=== PATIENT | male | born 1960 | race Caucasian/White ===

== ENCOUNTER 2022-07-30 18:43 | Outpatient (REF) | payer OTHER, SELFPAY ==
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
== END 2022-07-30 18:44 | disposition home or self-care (01) ==
LOC: HO.MRI 18:43
PROVIDERS: Visit Provider Psychiatry & Neurology Neurology
DX: I67.9 Cerebrovascular disease, unspecified (principal); R90.82 White matter disease, unspecified
CPT/HCPCS: 70551

== ENCOUNTER 2025-07-03 15:16 | Inpatient (IN) | payer MEDICARE, SELFPAY ==
--- OUTSIDE RECORDS SUMMARY | 2025-06-07 04:30 | XMS_ITS ---
Author Organization [facility] Address [address] [place] [address] Care Team Providers Care String Studies Director Name Role Phone Quincy Ma Primary Care Provider UnavailMayuri Christianson [phone] Encounters Encounter Location Date Provider Diagnosis [facility] [address] [place] [address] 06/07/2025 Mayuri Rubin Plan Of Treatment No Information Progress Notes * Albaro ANTOINE ADOB:[birth year] (64 yo M)Acc No.[id number]:06/07/2025 Progress Notes Patient: Albaro SINGH Provider: Lauren Rubin DPM :1960 A ge:64 Y S ex:Male Date:06/07/2025 Address:[address] [place], [place] [id number] Pcp:Quincy Ma Subjective: * Chief Complaints: * * Medical History: Objective: * Vitals: Assessment: Plan: * Treatment: * Images: * The named appointment provid er may or may not be the originator of this progress note, and it is not deemed complete until electronically signed by the appointment provider. Sign off status: Pending * Provider: Lauren Rubin DPM Date: Generated for Maria Luisa meneses/Godfrey/Deboraitting on: 09/02/2024 03:44 PM EDT
--- NOTE | ~2025-07-03 | XR_ITS ---
CLINICAL HISTORY: assess hardware 4 views cervical spine Comparison: None provided Findings: Normal vertebral body alignment. Status post anterior metallic, posterior metallic and interbody fusion extending from C3 through C5. Appropriate alignment. No evidence of hardware failure. Mild multilevel degenerative disc disease and facet osteoarthritis. Prevertebral soft tissues within normal limits. There is dental hardware. There are carotid artery calcifications. IMPRESSION: Status post surgical fusion extending from C3 through C5 with an unremarkable postoperative appearance. This document has been electronically signed by: Cassie Kc MD on 07/03/2025 18:52:59
--- NOTE | ~2025-07-03 | CT_ITS ---
CLINICAL HISTORY: headache CT head without contrast Comparison: MR/SR - MR BRAIN WITHOUT IV CONTRAST - 07/30/22 19:04 EST Findings: Involutional change and nonspecific white matter hypodensity. No intracranial mass, midline shift, hydrocephalus, or acute hemorrhage. Orbits, paranasal sinuses, and mastoid air cells are unremarkable. No skull fracture. Impression: 1. No acute findings. This document has been electronically signed by: Cassie Kc MD on 07/03/2025 18:26:30
[2025-07-03 15:28] VITALS: BP 166/79; PULSE 74; RESP 18; TEMP 36.7; O2SAT 99; BMI 21.1
--- OUTSIDE RECORDS SUMMARY | 2025-07-03 15:45 | XMS_ITS | Data Portability ---
Author Organization [facility], Main Office Address [address] [place] [id number] Assessment No assessment recorded. Plan of Treatment Reminders Order Date Submit Date Provider Last Modified By Organization Details Last Modified Time Details Appointments None recorde d. Lab CBC w/ auto diff 2016 017 JOJO [facility], [address], [address], [place], [address], 7 19:52:09 CMP, serum or plasma 2016 017 JO[facility], [address], [address], [place], [address], 7 20:53:47 BMP, serum or plasma 2014 015 JOJO Not available 5 18:01:13 Referral dermato logist referra l - pt saw Dr Rico in 2013-ex coriati ons. I believe this is recurre nt due to bathing /dry weather and perhaps his hyponat remia 2016 017 ciro Rico MD, [address] [facility] [place], [address], 7 10:25:06 gastroe nterolo gist referra l - pt due for colonos copy 2014 015 ciro Rios MD, [address] [place] [address] , [address], [place]al, [address], 6 13:02:12 dermato logist referra l 2013 014 [email or web address] Mi Rico MD, [address] [place] [address] [place], [address], 4 08:37:44 Procedures None recorde d. Surgeries None recorde d. Imaging electro cardiog bo 2014 015 cem In-Office Order, Internal Use Only DO Not Attach Compendium DO Not Attach Compendium, Do Not Delete/merge, [id number] 5 08:25:10 Medication Orders clobeta margaret 0.05 % topical ointmen t 2016 017 INTERFACE [facility]197, [address] [place] [address], [id number], 7 16:46:01 cetiriz ine 10 mg tablet 2016 017 [facility], [address] [place] [address], [id number], 7 16:46:03 prednis one 20 mg tablet 2016 017 INTERFACE [facility], [address] [place] [address], [id number], 7 16:46:03 irbesar matson 300 mg tablet 2014 015 mdalesschichoro [id number], [address] [facility], [place], [address], 5 14:08:11 permeth rin 5 % topical cream 2013 014 bmunday [facility], [address] [facility] [place], [address], 5 15:38:49 hydroxy zine HCl 25 mg tablet 2013 014 abolcun [facility], [address] [facility] [place], [address], 5 16:06:27 irbesar matson 300 mg tablet 2013 014 mdalessandro [facility]2566, [address] [place], [address], 4 08:02:09 permeth rin 5 % topical cream 2013 014 bmunday [id number], [address] [place], [address], 5 15:38:49 hydroxy zine HCl 25 mg tablet 2013 014 abolcun [facility][id number], [address] [place], [address], 5 16:06:26 Patient Targets Encounter Date Encounter Id Patient Goals Patient Target Last Modified By Organization Details Last Modified Time 04/29/2015 [id number] middle or intermediate school principal goal of Blood Pressure 140 / 90 Not available Not available Not available middle or intermediate school principal goal of Exercise level Not available Not available Not available middle or intermediate school principal goal of Tobacco Smoking Status Not available Not available Not available 04/29/2015 [id number] Pt advised and agrees to eat a low salt low fat diet; to do moderate exercise (such as walking) 150 minutes per week; to limit alcohol intake (goal of 2 drinks per day or less for men or 1 for woman). and to monitor dietary sodium. Will monitor home blood pressures and bring readings to appointments . mdalessandro Not available 04/29/2015 14:08:11 Patient Instructions Encounter Date Encounter Id Patient Instructions Last Modified By Organization Details Last Modified Time 04/21/2014 [id number] scabies: care instructions bmunday Not available 04/23/2014 12:50:27 high blood pressure: care instructions abolcun Not available 04/23/2014 16:06:15 learning about high blood pressure abolcun Not available 04/23/2014 16:06:15 05/25/2014 [id number] scabies: care instructions mdalessandro Not available 05/26/2014 08:02:09 learning about high blood pressure mdalessandro Not available 05/26/2014 08:02:09 high blood pressure: care instructions mdalessandro Not available 05/26/2014 08:02:09 [facility] carrie Neil have reviewed the note and agree with the assessment and plan of care. mdalessandro Not available 05/26/2014 08:02:09 10/20/2014 [id number] high blood pressure: care instructions awychowski Not available 10/21/2014 08:25:10 learning about high blood pressure awychowski Not available 10/21/2014 08:25:10 Medications were reviewed at this visit and reconciled. Changes in the active medications are reflected in the current medication list and discussed with patient (or caregiver) with instructions for follow up as needed. Printed medication list provided to the patient as part of the visit summary. I have reviewed the note and agree with the assessment and plan of care. awychowski Not available 10/21/2014 08:25:10 04/29/2015 [id number] Medications were reviewed at this visit and reconciled. Changes in the active medications are reflected in the current medication list and discussed with patient (or caregiver) with instructions for follow up as needed. Printed medication list provided to the patient as part of the visit summary. mdalessandro Not available 04/29/2015 14:01:21 09/14/2016 [id number] hyponatremia: care instructions [email or web address] Not available 09/14/2016 16:53:33 Medications (OTC, herbal therapies, supplements) reviewed and reconciled with patient and or caregiver, including potential side effects, drug interactions, instructions, and the consequences of not taking medication. Reviewed potential barriers to medication adherence, such as side effects from medication or cost of medication. mdalessandro Not available 09/14/2016 16:45:17 Reason for Referral Referring Physician: Pepito harper, Internal Medicine, Encounter Date: 05/25/2014 pt due for colonoscopy Referring Physician: Bridget Dupont, Internal Medicine, Encounter Date: 04/29/2015 Liquid Compounder Referral for A cute dermatitis pt saw Dr Rico in 2013-excoriations. I believe this is recurrent due to bathing/dry weather and perhaps his hyponatremia Referring Physician: Bridget Dupont, Internal Medicine, Encounter Date: 09/14/2016 Results Created Date Observation Date Name Description Value Unit Range Abnormal Flag Note LastModifiedBy Organization Detail LastModifiedTime 10/20/19 15 10/20/2014 lita nguyengr am Rate & Rhythm nsr Not Available In-Off ice Order Internal Use Only DO Not Attach Compendium DO Not Attach Compendium, Do Not Delete/merge, [id number] 10/20/2014 16:14:26 04/29/2004/29/2015 BMP, serum or plasm a glucose 86 mg/dL (70-99 ) Not Available [facility] (Centralized Electronic Ordering - All Locations) Patient Can Go To The Location Of Their Choice, 04/29/2015 18:01:13 04/29/2004/29/2015 BMP, serum or plasm a BUN 11 mg/dL (6-20) Not Available [facility] (Centralized Electronic Ordering - All Locations) Patient Can Go To The Location Of Their Choice, 04/29/2015 18:01:13 04/29/2004/29/2015 BMP, serum or plasm a creatinine 0.7 mg/dL (0.7-1 .2) Not Available [facility] (Centralized Electronic Ordering - All Locations) Patient Can Go To The Location Of Their Choice, 04/29/2015 18:01:13 04/29/2004/29/2015 BMP, serum or plasm a sodium 130 mmol/ L (133-1 45) low Not Available [facility] (Centralized Electronic Ordering - All Locations) Patient Can Go To The Location Of Their Choice, 04/29/2015 18:01:13 04/29/2004/29/2015 BMP, serum or plasm a potassium 5.0 mmol/ L (3.6-5 .2) Not Available [facility] (Centralized Electronic Ordering - All Locations) Patient Can Go To The Location Of Their Choice, 04/29/2015 18:01:13 04/29/2004/29/2015 BMP, serum or plasm a chloride 91 mmol/ L (98-10 7) low Not Available [facility] (Centralized Electronic Ordering - All Locations) Patient Can Go To The Location Of Their Choice, 04/29/2015 18:01:13 04/29/2004/29/2015 BMP, serum or plasm a bicarbonate 26 mmol/ L (22-29 ) Not Available [facility] (Centralized Electronic Ordering - All Locations) Patient Can Go To The Location Of Their Choice, 04/29/2015 18:01:04/29/2004/29/2015 BMP, serum or plasm a anion gap 13 (4-17) Not Available [facility] (Centralized Electronic Ordering - All Locations) Patient Can Go To The Location Of Their Choice, 04/29/2015 18:01:04/29/2004/29/2015 BMP, serum or plasm a calcium 9.3 mg/dL (8.6-1 0.5) Not Available [facility] (Centralized Electronic Ordering - All Locations) Patient Can Go To The Location Of Their Choice, 04/29/2015 18:01:04/29/2004/29/2015 BMP, serum or plasm a est GFR non >60 mL/mi n/1.7 3_M2 THE MDRD STUDY 'S ESTIM ATED GFR EQUAT ION HAS NOT BEEN VALID ATED IN CHILD TAMMY (<18 YRS), PREGN ANT WOMEN , THE ELDER LY (AGE >70 YRS), RACIA L OR ETHNI C SUBGR OUPS OTHER THAN CAU[place] SIANS AND AFRIC AN AMERI CANS. Not Available [facility] (Centralized Electronic Ordering - All Locations) Patient Can Go To The Location Of Their Choice, 04/29/2015 18:01:04/29/2004/29/2015 BMP, serum or plasm a est GFR >60 mL/mi n/1.7 3_M2 THE MDRD STUDY 'S ESTIM ATED GFR EQUAT ION HAS NOT BEEN VALID ATED IN CHILD TAMMY (<18 YRS), PREGN ANT WOMEN , THE ELDER LY (AGE >70 YRS), RACIA L OR ETHNI C SUBGR OUPS OTHER THAN [place] SIANS AND AFRIC AN AMERI CANS. Not Available [facility] (Centralized Electronic Ordering - All Locations) Patient Can Go To The Location Of Their Choice, 04/29/2015 18:01:13 09/14/19 17 09/14/2016 CBC w/ auto diff WBC 5.7 K/mm3 (4.0-1 1.0) Not Available [facility] (Centralized Electronic Ordering - All Locations) Patient Can Go To The Location Of Their Choice, 09/14/2016 19:52:09/14/1909/14/2016 CBC w/ auto diff RBC 4.51 M/mm3 (4.70- 6.10) low Not Available [facility] (Centralized Electronic Ordering - All Locations) Patient Can Go To The Location Of Their Choice, 09/14/2016 19:52:09/14/1909/14/2016 CBC w/ auto diff HGB 15.1 gm/dL (14.0- 18.0) Not Available [facility] (Centralized Electronic Ordering - All Locations) Patient Can Go To The Location Of Their Choice, 09/14/2016 19:52:09/14/1909/14/2016 CBC w/ auto diff HCT 43.0 % (42.0- 52.0) Not Available [facility] (Centralized Electronic Ordering - All Locations) Patient Can Go To The Location Of Their Choice, 09/14/2016 19:52:09/14/1909/14/2016 CBC w/ auto diff MCV 95.3 fL (80.0- 94.0) high Not Available [facility] (Centralized Electronic Ordering - All Locations) Patient Can Go To The Location Of Their Choice, 09/14/2016 19:52:09/14/1909/14/2016 CBC w/ auto diff MCH 33.5 pg (27.0- 34.0) Not Available [facility] (Centralized Electronic Ordering - All Locations) Patient Can Go To The Location Of Their Choice, 09/14/2016 19:52:09/14/1909/14/2016 CBC w/ auto diff MCHC 35.1 g/dL (33.0- 37.0) Not Available [facility] (Centralized Electronic Ordering - All Locations) Patient Can Go To The Location Of Their Choice, 09/14/2016 19:52:09/14/1909/14/2016 CBC w/ auto diff plt 256 K/mm3 (150-4 60) Not Available [facility] (Centralized Electronic Ordering - All Locations) Patient Can Go To The Location Of Their Choice, 09/14/2016 19:52:09/14/1909/14/2016 CBC w/ auto diff RDW-SD 45.1 fL (<47.0 ) Not Available [facility] (Centralized Electronic Ordering - All Locations) Patient Can Go To The Location Of Their Choice, 09/14/2016 19:52:09 09/14/1909/14/2016 CBC w/ auto diff MPV 9.5 fL (9.4-1 2.4) Not Available [facility] (Centralized Electronic Ordering - All Locations) Patient Can Go To The Location Of Their Choice, 09/14/2016 19:52:09 09/14/1909/14/2016 CBC w/ auto diff automated NRBC 0.0 #/100 _WBC' s Not Available [facility] (Centralized Electronic Ordering - All Locations) Patient Can Go To The Location Of Their Choice, 09/14/2016 19:52:09 09/14/1909/14/2016 CBC w/ auto diff abs. NRBC 0.0 K/mm3 Not Available [facility] (Centralized Electronic Ordering - All Locations) Patient Can Go To The Location Of Their Choice, 09/14/2016 19:52:09 09/14/1909/14/2016 CMP, serum or plasm a glucose 84 mg/dL (70-99 ) Not Available [facility] (Centralized Electronic Ordering - All Locations) Patient Can Go To The Location Of Their Choice, 09/14/2016 20:53:47 09/14/1909/14/2016 CMP, serum or plasm a BUN 9 mg/dL (6-20) Not Available [facility] (Centralized Electronic Ordering - All Locations) Patient Can Go To The Location Of Their Choice, 09/14/2016 20:53:47 09/14/1909/14/2016 CMP, serum or plasm a creatinine 0.8 mg/dL (0.7-1 .2) Not Available [facility] (Centralized Electronic Ordering - All Locations) Patient Can Go To The Location Of Their Choice, 09/14/2016 20:53:47 09/14/1909/14/2016 CMP, serum or plasm a sodium 133 mmol/ L (133-1 45) Not Available [facility] (Centralized Electronic Ordering - All Locations) Patient Can Go To The Location Of Their Choice, 09/14/2016 20:53:47 09/14/1909/14/2016 CMP, serum or plasm a potassium 4.6 mmol/ L (3.6-5 .2) Not Available [facility] (Centralized Electronic Ordering - All Locations) Patient Can Go To The Location Of Their Choice, 09/14/2016 20:53:47 09/14/1909/14/2016 CMP, serum or plasm a chloride 94 mmol/ L (98-10 7) low Not Available [facility] (Centralized Electronic Ordering - All Locations) Patient Can Go To The Location Of Their Choice, 09/14/2016 20:53:47 09/14/1909/14/2016 CMP, serum or plasm a bicarbonate 26 mmol/ L (22-29 ) Not Available [facility] (Centralized Electronic Ordering - All Locations) Patient Can Go To The Location Of Their Choice, 09/14/2016 20:53:47 09/14/1909/14/2016 CMP, serum or plasm a anion gap 13 (4-17) Not Available [facility] (Centralized Electronic Ordering - All Locations) Patient Can Go To The Location Of Their Choice, 09/14/2016 20:53:47 09/14/1909/14/2016 CMP, serum or plasm a albumin 4.7 gm/dL (3.4-4 .8) Not Available [facility] (Centralized Electronic Ordering - All Locations) Patient Can Go To The Location Of Their Choice, 09/14/2016 20:53:47 09/14/1909/14/2016 CMP, serum or plasm a calcium 9.4 mg/dL (8.6-1 0.5) Not Available [facility] (Centralized Electronic Ordering - All Locations) Patient Can Go To The Location Of Their Choice, 09/14/2016 20:53:47 09/14/1909/14/2016 CMP, serum or plasm a bilirubin,to kerry 0.4 mg/dL (0-1.2 ) Not Available [facility] (Centralized Electronic Ordering - All Locations) Patient Can Go To The Location Of Their Choice, 09/14/2016 20:53:47 09/14/1909/14/2016 CMP, serum or plasm a total protein 6.8 gm/dL (6.2-8 .2) Not Available [facility] (Centralized Electronic Ordering - All Locations) Patient Can Go To The Location Of Their Choice, 09/14/2016 20:53:47 09/14/1909/14/2016 CMP, serum or plasm a Ag ratio 2.2 Not Available [facility] (Centralized Electronic Ordering - All Locations) Patient Can Go To The Location Of Their Choice, 09/14/2016 20:53:47 09/14/1909/14/2016 CMP, serum or plasm a AST 20 U/L (0-38) Not Available [facility] (Centralized Electronic Ordering - All Locations) Patient Can Go To The Location Of Their Choice, 09/14/2016 20:53:47 09/14/1909/14/2016 CMP, serum or plasm a alk phos 91 U/L (40-12 9) Not Available [facility] (Centralized Electronic Ordering - All Locations) Patient Can Go To The Location Of Their Choice, 09/14/2016 20:53:47 09/14/1909/14/2016 CMP, serum or plasm a ALT 17 U/L (0-41) Not Available [facility] (Centralized Electronic Ordering - All Locations) Patient Can Go To The Location Of Their Choice, 09/14/2016 20:53:47 09/14/1909/14/2016 CMP, serum or plasm a est GFR non 99 mL/mi n/1.7 3_M2 The CKD-E PI creat inine equat ion has not been valid ated in child tammy (<18 years ), pregn ant women , in some racia l or ethni c subgr oups other than Cauca sians and Afric an Ameri cans. Not Available [facility] (Centralized Electronic Ordering - All Locations) Patient Can Go To The Location Of Their Choice, 09/14/2016 20:53:47 09/14/1909/14/2016 CMP, serum or plasm a est GFR 115 mL/mi n/1.7 3_M2 The CKD-E PI creat inine equat ion has not been valid ated in child tammy (<18 years ), pregn ant women , in some racia l or ethni c subgr oups other than Cauca sians and Afric an Ameri cans. Not Available [facility] (Centralized Electronic Ordering - All Locations) Patient Can Go To The Location Of Their Choice, 09/14/2016 20:53:47 10/21/19 15 elect emma diogr am No observ ation record ed. BARCODE Not Available 2014 12:46:35 Result Notes None recorded. 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 kirit hominis 438429323 Com[facility]20/[facility] 5 15:38:25 Influenz a vaccine needed 11736424264 06 Completed 200803/16/2014 RECORDED 06/16/20 09 3:46PM BY BRISEIDA DUNCAN, HISTORIC AL SUMMARY Not Available [facility] 4 14:37:34 Administ ration of bacteria l and viral vaccine Completed 200803/16/2014 RECORDED 06/16/20 09 3:24PM BY BRIDGET CROWE MD, OFFICE VISIT Not Available [facility] 4 14:37:35 Influenz a vaccine needed [id number] 06 Completed 200804/08/2014 RECORDED 06/16/20 09 3:46PM BY BRISEIDA DUNCAN, HISTORIC AL SUMMARY Not Available [facility] 4 12:52:17 Administ ration of bacteria l and viral vaccine Completed 200804/08/2014 RECORDED 06/16/20 09 3:24PM BY BRIDGET CROWE MD, OFFICE VISIT Not Available [facility] 4 12:52:17 Influenz a vaccine needed [id number] 06 Completed 200804/09/2014 RECORDED 06/16/20 09 3:46PM BY BRISEIDA DUNCAN, HISTORIC AL SUMMARY Not Available [facility] 4 03:48:06 Administ ration of bacteria l and viral vaccine Completed 200804/09/2014 RECORDED 06/16/20 09 3:24PM BY BRIDGET CROWE MD, OFFICE VISIT Not Available [facility] 4 03:48:07 Screenin g for malignan t neoplasm of colon Completed 201103/16/2014 RECORDED 07/01/20 12 1:02PM BY VICKIE BOUCHER MA, ANNOTATI ON/ADDEN DUM Not Available [facility] 4 14:37:34 Elevated blood-pr essure reading without diagnosi s of hyperten jailyn 805528424 Completed 201103/16/2014 RECORDED 07/01/20 12 1:03PM BY VICKIE BOUCHER MA, ANNOTATI ON/ADDEN DUM Not Available [facility] 4 14:37:34 Raynaud' s disease 377553472 Completed 201103/16/2014 RECORDED 07/01/20 12 1:03PM BY VICKIE BOUCHER MA, ANNOTATI ON/ADDEN DUM Not Available [facility] 4 14:37:35 Screenin g for malignan t neoplasm of colon Completed 201104/08/2014 RECORDED 07/01/20 12 1:02PM BY VICKIE BOUCHER MA, ANNOTATI ON/ADDEN DUM Not Available [facility] 4 12:52:17 Elevated blood-pr essure reading without diagnosi s of hyperten jailyn 100666916 Completed 201104/08/2014 RECORDED 07/01/20 12 1:03PM BY VICKIE BOUCHER MA, ANNOTATI ON/ADDEN DUM Not Available [facility] 4 12:52:17 Raynaud' s disease 091064605 Completed 201104/08/2014 RECORDED 07/01/20 12 1:03PM BY VICKIE BOUCHER MA, ANNOTATI ON/ADDEN DUM Not Available [facility] 4 12:52:17 Screenin g for malignan t neoplasm of colon Completed 201104/09/2014 RECORDED 07/01/20 12 1:02PM BY VICKIE BOUCHER MA, ANNOTATI ON/ADDEN DUM Not Available [facility] 4 03:48:06 Elevated blood-pr essure reading without diagnosi s of hyperten jailyn 984419912 Completed 201104/09/2014 RECORDED 07/01/20 12 1:03PM BY VICKIE BOUCHER MA, ANNOTATI ON/ADDEN DUM Not Available [facility] 4 03:48:06 Raynaud' s disease 872201735 Completed 201104/09/2014 RECORDED 07/01/20 12 1:03PM BY VICKIE BOUCHER MA, BEATI ON/ADDEN DUM Not Available [facility] 4 03:48:07 Contact dermatit is [id number] Completed 201203/16/2014 STORY: HANDS; RECORDED 11/28/19 13 1:10PM BY VICKIE BOUCHER MA, ANNOTJOVANA ON/ADDEN DUM Not Available [facility] 4 14:37:34 Contact dermatit is [id number] Completed 201204/08/2014 STORY: HANDS; RECORDED 11/28/19 13 1:10PM BY VICKIE BOUCHER MA, ANNOTATI ON/ADDEN DUM Not Available [facility] 4 12:52:17 Contact dermatit is [id number] Completed 201204/09/2014 STORY: HANDS; RECORDED 11/28/19 13 1:10PM BY VICKIE BOUCHER MA, JUANCARLOS ON/ADDEN DUM Not Available [facility] 4 03:48:06 Patient status finding [id number] Completed 201203/16/2014 RECORDED 03/03/20 13 12:58PM BY VICKIE BOUCHER MA, BEATI ON/ADDEN DUM Not Available [facility] 4 14:37:34 Patient status finding [id number] Completed 201204/08/2014 RECORDED 03/03/20 13 12:58PM BY VICKIE BOUCHER MA, JUANCARLOS ON/ADDEN DUM Not Available [facility] 4 12:52:17 Patient status finding [id number] Completed 201204/09/2014 RECORDED 03/03/20 13 12:58PM BY VICKIE BOUCHER MA, ANNOTATI ON/ADDEN DUM Not Available [facility] 4 03:48:06 Laborato ry procedur e performe d 202553202 Completed 201203/16/2014 RECORDED 08/06/20 13 12:47PM BY VICKIE BOUCHER MA, ANNOTATI ON/ADDEN DUM Not Available [facility] 4 14:37:34 Laborato ry procedur e performe d 775509502 Completed 201204/08/2014 RECORDED 08/06/20 13 12:47PM BY VICKIE BOUCHER MA, ANNOTATI ON/ADDEN DUM Not Available [facility] 4 12:52:17 Laborato ry procedur e performe d 507784135 Completed 201204/09/2014 RECORDED 08/06/20 13 12:47PM BY VICKIE BOUCHER MA, ANNOTATI ON/ADDEN DUM Not Available [facility] 4 03:48:07 Anxiety state 445405315 Active 2013 Charisma barksdale [facility] 7 16:05:01 Cataract 382121884 Active 2013 Charisma barksdale [facility] 7 16:04:59 Adult health examinat ion Completed 201303/16/2014 STORY: COLONOSC OPY DUE SS; RECORDED 12/08/19 14 8:08AM BY ANGELINA ROMAN I, ANNOTATI ON/ADDEN DUM Not Available [facility] 4 14:37:34 Hyperlip idemia 44308613 Active 2013 Charisma barksdale [facility] 7 16:05:07 Essentia l hyperten jailyn 66899075 Active 2013 Charisma barksdale [facility] 7 16:05:11 Hypo-osm olality and or hyponatr emia 193255906 Active 2013 Charisma barksdale [facility] 7 16:05:03 Insomnia 322026936 Active 2013 Charisma barksdale [facility] 7 16:04:56 Major depressi on single episode, in partial remissio n 72113602 Active 2013 Charisma Bigby MA null, [facility] 7 16:05:14 Patient status finding [id number] Completed 201310/20/2014 RECORDED 12/08/19 14 12:53PM BY NORRIS EMERY MA, OFFICE VISIT Pepito Saharich barksdale [facility] 5 15:38:25 Adult health examinat ion Completed 201304/08/2014 STORY: COLONOSC OPY DUE SS; RECORDED 12/08/19 14 8:08AM BY ANGELINA ROMAN I ANNOTATI ON/ADDEN DUM Not Available [facility] 4 12:52:17 Adult health examinat ion Completed 201304/09/2014 STORY: COLONOSC OPY DUE SS; RECORDED 12/08/19 14 8:08AM BY ANGELINA ROMAN I ANNOTATI ON/ADDEN DUM Not Available [facility] 4 03:48:06 Notes:V Problem Notes None recorded. Procedures Surgical History Date Name Laterality Status Provider Name and Address Organization Details Recorded Time 0 Colonoscopy completed Charisma Page MA [facility] 06/03/2017 16:07:08 Imaging Results None recorded. Procedure Notes None recorded. Medical Equipment None Reported. Allergies Allergen ID Allergen Name Allergen Category Reaction Reaction Severity Criticality Documentation Date Start Date Code Code System Note Provider Name and Address Organization Details Recorded Time 26777 hydrochlo rothiazid e medicatio n other Not available Not available 10/20/2014 5487 RxNorm hypon atrem ia Pepito barksdale [facility] 5 21:20:27 2728 Product containin g angiotens in-conver ting enzyme inhibitor (product) medicatio n cough Not available Not available 03/16/20142013 03009 009 SNOMED BRISEIDA Walton [facility] 5 13:23:46 Medications Name Sig Start Date Stop Date Status Note LastModified by Organization Details LastModified Time irbesarta n 300 mg tabs active Not Available Not Available Not Available amoxicill in 500 mg capsule active Not Available Not Available Not Available citalopra m 40 mg tablet Take 1 tablet every day by oral route for 30 days. active Not Available Not Available No t Available irbesarta n 150 mg-hydroc hlorothia zide 12.5 mg tablet Take 1 tablet every day by oral route for 90 days. active Not Available Not Available No t Available trazodone 50 mg tablet active Not Available Not Available Not Available cetirizin e 10 mg tablet Take 1 tablet every day by oral route for 30 days. 2016 active Not Available Not Available Not Avai lable prednison e 20 mg tablet Take 2 tablets by oral route for 5 days. 2016 active Not Available Not Available Not Avai lable Viagra 50 mg tablet active Not Available Not Available No t Available quetiapin e 200 mg tablet active Not Available Not Available Not Available olanzapin e 5 mg tablet Take 1 tablet every day by oral route for 30 days. 09/14 completed Not Available Not Available Not Available permethri n 5 % topical cream APPLY (THOROUG HLY MASSAGE INTO SKIN FROM HEAD TO SOLES OF FEET) BY TOPICAL ROUTE ONCE LEAVE ON FOR 8-14 HR, THEN REMOVE BY THOROUGH WASHING active Not Available Not Available No t Available quetiapin e 100 mg tablet 09/14 completed Not Available Not Available Not Available risperido ne 2 mg tablet 09/14 completed Not Available Not Available Not Available citalopra m 20 mg tablet active Not Available Not Available Not Available prednisol one acetate 1 % eye drops,axel pension active Not Available Not Available Not Available trazodone 100 mg tablet active Not Available Not Available Not Available hydroxyzi ne HCl 25 mg tablet Take 1 tablet(s ) 4 TIMES A DAY as needed for itching active Not Available Not Available No t Available clobetaso l 0.05 % topical ointment APPLY A THIN LAYER TO THE AFFECTED AREA(S) BY TOPICAL ROUTE 2 TIMES PER DAY 2016 active Not Available Not Available Not Avai lable irbesarta n 150 mg tablet Take 1 tablet every day by oral route. active Not Available Not Available No t Available lorazepam 1 mg tablet THREE TIMES DAILY, NEEDED active Not Available Not Available No t Available lisinopri l 10 mg-hydroc hlorothia zide 12.5 mg tablet DAILY 04/23 completed RECORDED 04/23/20 13 2:26PM BY BRIDGET CROWE MD, ANNOTATI ON/RERE DUM; Not Available Not Available Not Available irbesarta n 300 mg tablet Take 1 tablet every day by oral route. active Not Available Not Available No t Available amoxicill in 875 mg-potass ium clavulana te 125 mg tablet 09/14 completed Not Available Not Available Not Available Vigamox 0.5 % eye drops active Not Available Not Available Not Available Nevanac 0.1 % eye drops,axel pension active Not Available Not Available Not Available Vitals Date Recorded Body height Body weight Body mass index (BMI) Oxygen saturation Oxygen saturation in Arterial blood by Pulse oximetry Heart rate Body temperature Systolic And Diastolic Provider Name and Address Organization Details Last Updated DateTime 7 174.63 cm 23462.2 7 g 31.4 kg/m2 97 % 97 % 84 /min 97.2 [degF] 154/91 mm[Hg] Charisma Page [facility] 7 16:11:37 Date Recorded Oxygen saturation Oxygen saturation in Arterial blood by Pulse oximetry Body weight Body temperature Body height Body mass index (BMI) Heart rate Systolic And Diastolic Provider Name and Address Organization Details Last Updated DateTime 5 99 % 99 % 70014.5 503 g 98.7 [degF] 176.53 cm 27.7 kg/m2 70 /min 156/95 mm[Hg] Kim Castañeda [facility] 5 16:06:27 Date Recorded Body height Oxygen saturation Oxygen saturation in Arterial blood by Pulse oximetry Body weight Heart rate Body mass index (BMI) Body temperature Provider Name and Address Organization Details Last Updated DateTime 4 176.53 cm 99 % 99 % 74638.2 1897 g 68 /min 26.3 kg/m2 97.4 [degF] Norris Emer[facility] 4 10:57:59 Date Recorded Systolic And Diastolic Provider Name and Address Organization Details Last Updated DateTime 04/21/2014 136/88 mm[Hg] Pepito [facility] 04/23/2014 12:48:39 Date Recorded Oxygen saturation Oxygen saturation in Arterial blood by Pulse oximetry Body temperature Heart rate Body weight Body height Body mass index (BMI) Systolic And Diastolic Provider Name and Address Organization Details Last Updated DateTime 5 99 % 99 % 97 [degF] 76 /min 23161.7 4105 g 174.625 cm 24.5 kg/m2 150/88 mm[Hg] Sun pretty MA [facility] 5 13:23:46 Date Recorded Body temperature Heart rate Oxygen saturation Oxygen saturation in Arterial blood by Pulse oximetry Body weight Body mass index (BMI) Body height Systolic And Diastolic Provider Name and Address Organization Details Last Updated DateTime 4 97.9 [degF] 69 /min 100 % 100 % 60608.1 71826 g 27.6 kg/m2 176.53 cm 149/80 mm[Hg] Shantelle Cutler MA [facility] 4 15:05:01 Social History Question Answer Notes LastModified by Organizat ion Details LastModified Time Tobacco Smoking Status Former Smoker Norris barksdale [facility] 03/29/2014 12:54:48 Do You Have An Advance Directive? Yes Signed On 04/29/2015 Information not available 04/29/2015 Is Blood Transfusion Acceptable In An Emergency? Yes Information not available 04/29/2015 What Is Your Level Of Caffeine Consumption? Moderate Diet Soda, Tea, Coffee Information not available 04/29/2015 How Much Tobacco Do You Chew? None Information not available 04/29/2015 What Type Of Diet Are You Following? REGULAR Lots Of Water Information not available 04/29/2015 Which Illicit Or Recreational Drugs Have You Used? None Information not available 04/29/2015 Have There Been Any Changes To Your Family Or Social Situation? No Information not available 04/29/2015 Live Alone Or With Others? With Others (Ninfa) Information not available 04/29/2015 Do You Take Precautions To Prevent Distracted Driving? Yes Information not available 04/29/2015 How Often Do You Need To Have Someone Help You When You Read Instructions, Pamphlets, Or Other Written Material From Your Doctor Or Pharmacy? Never Information not available 04/29/2015 How Many Children Do You Have? 0 Information not available 04/29/2015 Do You Use Protection During Sex? No Information not available 04/29/2015 Seat Belts Used Routinely Yes Information not available 04/29/2015 Are You Sexually Active? Yes Information not available 04/29/2015 Smoke Alarm In Home Yes Information not available 04/29/2015 At What Age Did You Start Smoking Tobacco? 20 Information not available 04/29/2015 Are You Passively Exposed To Smoke? No Information not available 04/29/2015 How Much Tobacco Do You Smoke? 1 PPW < 1 PPW Information not available 04/29/2015 Do You Use Sunscreen Routinely? No Information not available 04/29/2015 How Many Years Have You Smoked Tobacco? 2 Information not available 04/29/2015 Sex: Unknown Functional Status Question Answer Note LastModified by Organizat ion Details LastModified Time What is your level of alcohol consumption? None Information not available 04/29/2015 Are you currently employed? Yes Information not available 04/29/2015 Are you able to care for yourself independently? 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 Moderate daily Information not available 04/29/2015 Mental Status None recorded. Family History Relationship Description Onset Age of this Age Resolved Age Notes LastModified by Organization Details LastModified Time Father Carcinoma in situ of lung 62 smoker mdalessandro Not available 04/29/2015 14:01:21 Mother Malignant neoplasm of body of pancreas 81 mdalessandro Not available 14:01:21 Mother Essential hypertension mdalessandro Not available 04/29/2015 14:01:21 Brother Carcinoma in situ of colon 62 he was cardio logist mdalessandro Not available 04/29/2015 14:01:21 Medical History Condition Response Other N Gout N Kidney Stones N Blood Diseases N Hyperthyroidism N Breast Cancer N Depression Y COPD N Lung Disease N Hypothyroidism N Defects or Inherited Disease N Anesthesia Complications N Headaches/Migraines N Varicose Veins N Anxiety Disorder N Obesity N Vision or Eye Problems N Arthritis N Head Injury/Concussion N Polyps N Infertility N Congenital Anomalies N Acid Reflux (GERD) N Cancer N Stroke N ADHD N Endometriosis N High Cholesterol N Liver Disease N Fibromyalgia N Kidney Disease N Heart Problems N Ear or Hearing Problems N Hospitalizations N Thyroid Problems N GI Problems N Acne N Eating Disorder N Skin Problems N Anemia N Constipation N Bladder Problems N Mental Illness N Ovarian Cancer N Diabetes N Blood Transfusions N Seizures/Epilepsy N Tuberculosis N AIDS/HIV N Congestive Heart Failure (CHF) N Eczema N Diverticulitis N Abuse/Domestic Violence N Asthma N Allergies N Reflux/GERD N Hepatitis N Pulmonary Embolism N Hypertension Y Chicken Pox N Autism Spectrum Disorder (ASD) N Osteoporosis N Immunizations Vaccine Type Date Status Note Provider Nam e and Address Organization Details Recorded Time Tdap 9 completed Not Available [facility] 03/16/2014 13:37:27 Influenza, split virus, trivalent, preservative 9 completed Not Available [facility] 03/16/2014 13:37:27 Influenza, split virus, trivalent, PF 4 completed Not Available [facility] 09/19/2019 02:21:56 Past Encounters Encounter ID Performer Location Encounter Start Date Encounter Closed Date Diagnosis/Indication Diagnosis SNOMED-CT Code Diagnosis ICD10 Code Diagnosis IMO Codes Diagnosis Note [id number] NATALIA Duran Main Office [address] [facility] [address] [facility] [place] [address] 03/29/2014 12:43:13 03/29/2014 13:16:20 Essential hypertension 81956558 the combo with hctz had to be stopped due to hyponatrem ia. will up irbesartan since will likely not get enough lowering with the 150mg. check labs a few days before appt. [id number] [facility] [address] [facility] [place] [address] 06/16/2009 00:00:00 [id number] [place], [place] [address] 10/03/2009 00:00:00 [id number] [facility] [facility] [address] [facility],[address] [place], [place] [address] 07/31/2012 00:00:00 [id number] auto[facility] erce [address] [facility],[address] [place], [place] [address] 11/27/2012 00:00:00 [id number] auto[facility] erce [address] [facility],[address] [place], [place] [address] 03/03/2013 00:00:00 [id number] auto[facility] erce [address] [facility],[address] [place], [place] [address] 08/06/2013 00:00:00 [id number] auto[facility] erce [address] [facility] [place], [place] [address] 12/07/2013 00:00:00 [id number] NATALIA Duran Main Office [address] [address] [place], [place] [address] 04/21/2014 10:42:56 04/21/2014 11:38:56 Infestation by Sarcoptes scabiei kirit hominis [phone] call if does not improve in a week Essential hypertension 07589559 looks like he can stay off all BP meds. 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 but since has not gone away will refer to derm. repeat treatment now and in 1 week Essential hypertension 15075124 he will restart BP med Needs infl uenza immunization 125886671 [id number] NATALIA Duran Main Office [address] [address] [place], [place] [address] 10/20/2014 15:43:16 10/20/2014 16:32:36 Essential hypertension 25115370 I suggested he start a second BP med but he is against this. he would like to check his BP at home and bring in recordings to his appt next month. if still high he will start second BP med. [id number] Bridget wilcox MD Main Office [address] [facility] [address] [place] [address] 04/29/2015 13:00:30 04/29/2015 14:22:23 Adult health examination 361956309 Essential hypertension 36219379 Family his tory of cancer of colon [id number] due for colonoscop y 2014 [id number] Bridget wilcox MD Main Office [address] [facility] [address] [place] [address] 09/14/2016 15:04:32 09/14/2016 16:51:27 Acute dermatitis 01676554 L30.9 similar to reaction in 2013 Hyponatremia 52285457 E8 7.1 Pruritic disorder 180520 002 L29.9 Health Concerns Section Related Observation LastModified by Organization Detai ls LastModified Time None Recorded Concern Status LastModified by Organization Details LastModified Time None Recorded Advance Directives Directive Y: signed on 04/29/2015 Payers Insurance Date Sequence Insurance Name Policy Number Policy Ramirez Covered Member ID Ramirez Member ID Guarantor Name 07/01/[address] [place] [address] [place] [place] [id number] Albaro Mendoza [id number] Albaro Mendoza Notes Date Note Type Note Provider Name and Address Organization Details Recorded Time 04/21/2014 text/html Rash/Skin LesionReported by PatientHPIFor quality, patient reportsitchy. For location, patient reportsarms,abdomen, back,groin,legs, andaxilla. For severity, patient reportsmoderate. For duration, patient reportshas noted for 2-3 weeks. For onset/timing, patient reportsgradual onset. For associated symptoms, patient reportsno fever,no nausea,no vomiting, andno diarrhea.no improvement with stopping BP med Hypertension F/UReported by PatientHPIFor associated symptoms, patient reportsno dizzinessandno chest pain.he stopped BP med about 2 weeks ago due to this rash. he thought it was related to the new med. He has been checking his BP at home and happily his BP has been under 140/90ROS as noted in the HPI Pepito barksdale, [facility] 04/23/2014 12:50:41 05/25/2014 text/html Hypertension F/UReported bypatient.Medication s:not taking medications as directedNotes:he was supposed to start irbesartan last month but never did. he was worried it was causing the rash. but the rash has persisted for at least a month since he stopped the medicine. Rash/Skin LesionReported bypatient.Location:b ack; feet Quality:itchy Severity:severe Duration:has noted for 1-2 months Alleviating Factors:hydroxyzine and the permethrin given last month made most of it go away Aggravating Factors:stress Associated Symptoms:no fever; no diarrhea Treatment History:oral antihistamines ___ with ; prescription topical treatment ___ with Bridget barksdale [facility] 05/26/2014 08:02:24 10/20/2014 text/html Hypertension F/UReported by PatientHPIFor medications, patient reportstaking medications as directed (irbesartan 300mg).he was at psychiatrist today and his BP was around 170. so he was sent here. he feels fine. he has not checked his BP in a few weeks. he used to be on avalide but had low Na so HCTZ was stopped and put on avapro. he has been doing well on this. Emigdio Louis MD [address], [address], [facility] 10/21/2014 08:25:11 04/29/2015 text/html Hypertension F/UReported by PatientHPIFor associated symptoms, patient reportsno dizzinessandno lightheadedness. For lifestyle, patient reportsregular exerciseandlimiting/ avoiding salt. For medications, patient reportstaking medications as directed,no side effects from medication, andchecks blood pressure at home, range:(pt finds his bp at home avg is approx. 130/80). Bridget barksdale [facility] 04/29/2015 14:08:35 09/14/2016 text/html Rash/Skin LesionReported by PatientHPIFor quality, patient reportsitchy. For location, patient reportsarms,abdomen, back,groin,legs, andaxilla. For severity, patient reportsmoderate. For duration, patient reportshas noted for 2-3 weeks. For onset/timing, patient reportsgradual onset. For associated symptoms, patient reportsno fever,no nausea,no vomiting, andno diarrhea.no improvement with stopping BP medROS as noted in the HPI Bridget barksdale [facility] 09/14/2016 16:54:19
--- OUTSIDE RECORDS SUMMARY | 2025-07-03 15:45 | XMS_ITS | Encounter Summary ---
Author Organization [facility] Address [address] [place] [address] Care Team Providers Care Justice Court Judge Name Role Phone Quincy Ma MD Primary Care Provider [phone] Encounter Details Date Type Department Care Team (Late st Contact Info) Description 05/31/2025 Telephone [facility] [address] [place] [address] Noe Zhao MA Social History Tobacco Use Types Packs/Day Years Used Date Smoking Tobacco: Former Cigarettes Smokeless Tobacco: Never Alcohol Use Standard Drinks/Week Comments Not Currently 0 (1 standard drink = 0.6 oz pur e alcohol) Health Literacy Answer Date Recorded How often do you need to hav e someone help you when you read instructions, pamphlets, or other written material from your doctor or pharmacy? Never 06/08/2025 Caregiver: How often do you need to have someone help you when you read instructions, pamphlets, or other written material from your doctor or pharmacy? Not on file 06/08/2025 Transportation Answer Date Recorded Has the lack of transportati on kept you from meetings, work, or from getting things needed for daily living? No Has the lack of transportati on kept you from medical appointments or from getting medications? No 05/28/2025 Social Isolation Answer Date Recorded How often do you feel lonely or isolated from th ose around you? Never 06/07/2025 Food Risk Answer Date Recorded Within the past 12 months we worried whether our food would run out before we got money to buy more. Never true 05/29/2025 Within the past 12 months th e food we bought just didn't last and we didn't have money to get more. Never true 05/29/2025 Interpersonal Safety Answer Date Record ed Physical Abuse Unrecognized value 05/22/2025 Verbal Abuse Unrecognized value 05/22/2025 Sex and Gender Information Value Date Recorded Sex Assigned at Male 05/27/2025 9:09 AM EDT Legal Sex Male 11:56 PM EST Gender Identity Male 05/27/2025 9:09 AM EDT Sexual Orientation Choose not to disclose 2024 9:09 AM EDT documented as of this encounter Plan of Treatment Upcoming Encounters Date Type Department Care Team (Late st Contact Info) Description 07/08/2025 2:30 PM EST Office Visit [facility] [place] [address] [place] [id number] Parker Seay MD [address] [place], [place] [id number] Scheduled Procedures Name Priority Associated Diagnoses Date/Ti me ARTHROPLASTY HIP TOTAL Primary osteoarthritis of left hip documented as of this encounter Visit Diagnoses Not on filedocumented in this encounter Additional Health Concerns Assessment Noted Time PHQ-9 Depression Total Score: 0 05/28/20 25 3:59 PM EDT documented as of this encounter Care Teams Justice Court Judge Relationship Specialty Start Date End Date Quincy Ma MD [address] [facility] [address] [place] [address] PCP - General 12/02/23 documented as of this encounter
--- OUTSIDE RECORDS SUMMARY | 2025-07-03 15:45 | XMS_ITS | Clinical Summary ---
Author Organization [facility] Address [address] [place] [address] Phone Care Team Providers Care Building Mechanic Name Role Phone Quincy Ma MD Primary Care Provider [phone] Allergies Active Allergy Reactions Criticality Noted Date Comments Lisinopril Cough 04/16/2025 Medications acetaminophen (TYLENOL) 500 mg tabletIndicati ons:pain Take 2 tablets (1,000 mg total) by mouth every 8 (eight) hours. 30 tablet 06/08/20 25 Active apixaban (ELIQUIS) 5 mg tabletIndicati ons:afib Take 1 tablet (5 mg total) by mouth 2 (two) times a day. 60 each 06/08/20 25 025 Active gabapentin (NEURONTIN) 300 mg capsule Take 1 capsule (300 mg total) by mouth every 8 (eight) hours. 90 each 06/08/20 25 025 Active senna (SENOKOT) 8.6 mg tablet Take 2 tablets (17.2 mg total) by mouth at bedtime. 60 each 11 06/08/20 25 026 Active ergocalciferol (VITAMIN D-2) 1,250 mcg (50,000 unit) capsule Take 1 capsule (50,000 Units total) by mouth 1 (one) time per week. 4 each 06/09/20 25 025 Active acetaminophen (TYLENOL 8 HOUR) 650 mg 8 hr tablet Take 2 tablets (1,300 mg total) by mouth every 8 (eight) hours if needed. 01/13/20 25 025 Discontinued(St op Taking at Discharge) ergocalciferol (VITAMIN D-2) 1,250 mcg (50,000 unit) capsule Take 1 capsule (50,000 Units total) by mouth 1 (one) time per week. 02/22/20 Discontinued apixaban (ELIQUIS) 5 mg tablet Take 2 tablets (10 mg total) by mouth 2 (two) times a day for 4 days, THEN 1 tablet (5 mg total) 2 (two) times a day. 196 each 05/28/20 Discontinued(St op Taking at Discharge) dexAMETHasone (DECADRON) 1 mg tablet Take 4 tablets (4 mg total) by mouth every 12 (twelve) hours for 1 day, THEN 4 tablets (4 mg total) 1 (one) time each day for 1 day, THEN 2 tablets (2 mg total) 1 (one) time each day for 1 day, THEN 1 tablet (1 mg total) 1 (one) time each day for 1 day. 15 each 05/28/20 Discontinued(St op Taking at Discharge) gabapentin (NEURONTIN) 300 mg capsule Take 1 capsule (300 mg total) by mouth every 8 (eight) hours. 90 each 05/28/20 Discontinued oxyCODONE (ROXICODONE) 5 mg immediate release tablet Take 1 tablet (5 mg total) by mouth every 4 (four) hours if needed for moderate pain for up to 5 days. Max Daily Amount: 30 mg 05/28/20 Discontinued pantoprazole (PROTONIX) 40 mg EC tablet Take 1 tablet (40 mg total) by mouth 1 (one) time each day before breakfast. Do not crush, chew, or split. 30 each 05/29/20 Discontinued(St op Taking at Discharge) senna-docusate (PERICOLACE) 8.6-50 mg per tablet Take 1 tablet by mouth at bedtime. 30 each 05/28/20 Discontinued(St op Taking at Discharge) oxyCODONE (ROXICODONE) 5 mg immediate release tablet Take 1 tablet (5 mg total) by mouth every 4 (four) hours if needed for moderate pain for up to 5 days. Max Daily Amount: 30 mg 15 tablet 06/08/20 25 025 docusate sodium (COLACE) 100 mg capsule Take 1 capsule (100 mg total) by mouth 2 (two) times a day for 10 days. 20 each 06/08/20 25 025 Active Problems Problem Noted Date Diagnosed Date Cervical myelopathy ([facility] V24, [facility] V28) 0 05/28/2025 Constipation 05/25/2025 Assessment & Plan (05/27/2025 1:12 PM EDT): Suspect secondary to immobility, opioid use. - Miralax daily, dulcolax 10 mg daily, senna qhs Assessment & Plan (05/26/2025 8:14 AM EDT): Suspect secondary to immobility, opioid use. - Miralax daily, dulcolax 10 mg daily, senna qhs Assessment & Plan (05/25/2025 7:58 AM EDT): Suspect secondary to immobility, opioid use. - Miralax daily, dulcolax 10 mg daily, senna qhs Odynophagia 05/24/2025 Assessment & Plan (05/27/2025 1:12 PM EDT): - Pain control per above Assessment & Plan (05/26/2025 8:14 AM EDT): - Pain control per above Assessment & Plan (05/25/2025 7:58 AM EDT): - Pain control per above Assessment & Plan (05/24/2025 12:52 PM EDT): - Pain control per above Dysphagia 05/24/2025 Assessment & Plan (05/27/2025 1:12 PM EDT): - Consult ACOUSTIC ENGINEER, modified barium swallow done, IDDSI level 2 and level 4 mildly thickened pur ed diet at this time. Discontinued fluids. Assessment & Plan (05/26/2025 1:13 PM EDT): - Consult ACOUSTIC ENGINEER yesterday, currently NPO. They will continue to follow. Currently on D5 LR. Patient has moderate pharyngeal dysphagia. Anticipate eventual improvement. Continue meds. Assessment & Plan (05/25/2025 9:48 AM EDT): - Consult ACOUSTIC ENGINEER - NPO - D5 w/ LR 50 mL/hr for maintenance IVF Assessment & Plan (05/24/2025 12:52 PM EDT): - Consult ACOUSTIC ENGINEER - NPO Edema of spinal cord ([facility] V24, CMS/HCC V28) 05/22/2025 Assessment & Plan (05/27/2025 1:12 PM EDT): C3-C4 cord edema. Dexamethasone taper started. - Pantoprazole 40 mg daily for stress ulcer prophylaxis Assessment & Plan (05/26/2025 1:13 PM EDT): C3-C4 cord edema. Dexamethasone taper started from tomorrow - Pantoprazole 40 mg daily for stress ulcer prophylaxis Assessment & Plan (05/25/2025 7:58 AM EDT): C3-C4 cord edema. - Dexamethasone 4 mg every 6 hours - Pantoprazole 40 mg daily for stress ulcer prophylaxis Assessment & Plan (05/24/2025 8:29 AM EDT): C3-C4 cord edema. - Dexamethasone 4 mg every 6 hours - Pantoprazole 40 mg daily for stress ulcer prophylaxis Assessment & Plan (05/23/2025 1:53 PM EDT): C3-C4 cord edema. - Dexamethasone 4 mg every 6 hours - Pantoprazole 40 mg daily for stress ulcer prophylaxis Assessment & Plan (05/22/2025 9:47 AM EDT): C3-C4 cord edema. - Dexamethasone 4 mg every 6 hours - Pantoprazole 40 mg daily for stress ulcer prophylaxis Assessment & Plan (05/22/2025 6:38 AM EDT): Progressive weakness UE and LE B/L Multilevel spinal canal stenosis C3-C4 moderate to severe spinal canal stenosis with evidence of cord edema 1.5 cm T9 lesion suggestive of hemangioma Patient presented to outside hospital after a fall. Reported experiencing worsening and progressive upper and lower extremity weakness necessitating a walker due to difficulty ambulating. Weakness was also associated with numbness mainly in the upper extremities. Workup at [facility] was notable for MRI of cervical spine showing C3-C4 as well as facet arthropathy causing moderate to severe spinal canal stenosis no evidence of cord edema as well as impingement both ventrally as well as dorsally at the aspect of thecal sac. There is evidence of bilateral neural foraminal stenosis at the level. There was also C4-C6 mild central spinal canal stenosis and mild bilateral neuroforaminal stenosis. MRI thoracic spine showed lesion in T9 vertebrae measuring 1.5 cm suggestive of a hemangioma. MRI lumbar spine showed L2-L5 moderate spinal canal stenosis and bilateral neural foraminal stenosis. Ultimately, patient was transferred to [facility] for further evaluation by neurology. On my assessment, patient reports that he has experienced progressive lower and upper extremity weakness that has been worsening over the last 2 weeks. Weakness is more pronounced in his lower extremities to point that he needs a walker and able to ambulate. Has also noticed decreased sensation in numbness and tingling. Denies any recent trauma. Reported that he fell yesterday high stool and landed on right side of his body. Denied any chest pain, lightheadedness, palpitations prior to fall. Denied recent viral infections chills or fever. No concerns with vision, swallowing, or breathing. Suspect presentation is in the setting of spinal canal compression given cord edema. Other differentials considered were Guillain-Diaz , transverse myelitis, however, given indolent progression of his symptoms less likely. - Neurology consulted, appreciate recommendations - Neurosurgery consulted, appreciate recommendations Start dexamethasone 4 mg every 6 hours - Follow EMG UE and LE - Myositis panel, TSH - Fall precautions - Multimodal pain with Tylenol 1000 mg every 6 hours as needed, dilaudid as needed for severe pain DVT (deep venous thrombosis) (CMS/HCC V24, CMS/H CC V28) 05/22/2025 Assessment & Plan (05/27/2025 1:12 PM EDT): Occlusive and nonocclusive DVT in left posterior tibial vein and peroneal vein. Suspect provoked due to immobility. Repeat ultrasound also shows left posterior tibial vein and peroneal vein thrombus. I talked with Dr. Cash, from a surgical perspective, he is cleared for anticoagulation. Will start the patient on VTE full dose anticoagulation. 10 mg Eliquis for the next 7 days followed by 5 mg twice daily. He is agreeable for anticoagulation and is aware of bleeding risk. Assessment & Plan (05/26/2025 1:13 PM EDT): Occlusive and nonocclusive DVT in left posterior tibial vein and peroneal vein. Suspect provoked due to immobility. Repeat ultrasound also shows left posterior tibial vein and peroneal vein thrombus. I talked with Dr. Cash, from a surgical perspective, he is cleared for anticoagulation. Will start the patient on VTE full dose anticoagulation. 10 mg Eliquis for the next 7 days followed by 5 mg twice daily. He is agreeable for anticoagulation and is aware of bleeding risk. Assessment & Plan (05/25/2025 7:58 AM EDT): Occlusive and nonocclusive DVT in left posterior tibial vein and peroneal vein. Suspect provoked due to immobility. - Holding anticoagulation pending recommendations from spine surgery - Repeat venous duplex US of LLE today Assessment & Plan (05/24/2025 12:51 PM EDT): Occlusive and nonocclusive DVT in left posterior tibial vein and peroneal vein. Suspect provoked due to immobility. - Holding anticoagulation pending recommendations from spine surgery - Repeat venous duplex US of LLE tomorrow Assessment & Plan (05/23/2025 1:53 PM EDT): Occlusive and nonocclusive DVT in left posterior tibial vein and peroneal vein. Suspect provoked due to immobility. - Holding anticoagulation for planned operation - Repeat venous duplex US of LLE in 48 hours Assessment & Plan (05/22/2025 4:08 PM EDT): Occlusive and nonocclusive DVT in left posterior tibial vein and peroneal vein. Suspect provoked due to immobility. - Holding anticoagulation at midnight for planned operation - Repeat venous duplex US of LLE in 48 hours Assessment & Plan (05/22/2025 6:38 AM EDT): Duplex of the lower extremity bilaterally from outside hospital revealed occlusive and nonocclusive deep vein thrombosis in the mid left posterior tibial vein and peroneal vein. -Holding anticoagulation pending neurology and potentially neurosurgery evaluation regarding above Muscle weakness of extremity 05/22/2025 Assessment & Plan (05/27/2025 1:12 PM EDT): - See plan for spinal stenosis, edema of spinal cord - Myositis panel pending - Multimodal pain with Tylenol 1000 mg q6h PRN, oxycodone 5 mg PO q4h PRN for severe pain, gabapentin 300mg TID - Methocarbamol 500 mg TID PRN for muscle cramping - Fall precautions Assessment & Plan (05/26/2025 8:14 AM EDT): - See plan for spinal stenosis, edema of spinal cord - Myositis panel pending - Multimodal pain with Tylenol 1000 mg q6h PRN, oxycodone 5 mg PO q4h PRN for severe pain, gabapentin 300mg TID - Methocarbamol 500 mg TID PRN for muscle cramping - Fall precautions Assessment & Plan (05/25/2025 9:48 AM EDT): - See plan for spinal stenosis, edema of spinal cord - Myositis panel pending - Multimodal pain with Tylenol 1000 mg q6h PRN, oxycodone 5 mg PO q4h PRN for severe pain, gabapentin 300mg TID - Methocarbamol 500 mg TID PRN for muscle cramping - Fall precautions Assessment & Plan (05/24/2025 12:14 PM EDT): - See plan for spinal stenosis, edema of spinal cord - Myositis panel and MG pending - Multimodal pain with Tylenol 1000 mg q6h PRN, oxycodone 5 mg PO q4h PRN for severe pain, gabapentin 300mg TID - Methocarbamol 500 mg TID PRN for muscle cramping - Fall precautions Assessment & Plan (05/23/2025 1:53 PM EDT): - See plan for spinal stenosis, edema of spinal cord - Myositis panel and MG pending - Multimodal pain with Tylenol 1000 mg q6h PRN, oxycodone 5 mg PO q4h PRN for severe pain, gabapentin 200mg TID - Methocarbamol 500 mg TID PRN for muscle cramping - Fall precautions Assessment & Plan (05/22/2025 4:08 PM EDT): - See plan for spinal stenosis, edema of spinal cord - Myositis panel and MG pending - Multimodal pain with Tylenol 1000 mg q6h PRN, oxycodone 5 mg PO q4h PRN for severe pain, gabapentin 200mg TID - Methocarbamol 500 mg TID PRN for muscle cramping - Fall precautions Spinal stenosis, multiple sites in spine 025 Assessment & Plan (05/27/2025 1:12 PM EDT): Disc bulge at C3-C4, C4-C5, C5-C6 causing spinal canal and neural foraminal stenosis. Disc bulge at L2-L3, L3-L4, L4-5 with spinal canal and neural foraminal stenosis. Status post ACDF C3-C5 and posterior laminectomy, postoperative day 3. Neurosurgery Dr. Urbina is following. For cord edema continue on dexamethasone 6 mg Q4 hourly for the last couple of days, GI prophylaxis with PPI. Will dexamethasone taper ordered as per L form starting tomorrow. Gabapentin 300, oxycodone, as needed Tylenol and Robaxin for pain management. Anticipate Lau removal and trial of void today, communicated with nurse. I talked with Dr. Urbina, from his side, he is cleared for anticoagulation. Full dose Eliquis started Pending approval from retirement facility today Assessment & Plan (05/26/2025 1:13 PM EDT): Disc bulge at C3-C4, C4-C5, C5-C6 causing spinal canal and neural foraminal stenosis. Disc bulge at L2-L3, L3-L4, L4-5 with spinal canal and neural foraminal stenosis. Status post ACDF C3-C5 and posterior laminectomy, postoperative day 3. Neurosurgery Dr. Urbina is following. For cord edema continue on dexamethasone 6 mg Q4 hourly for the last couple of days, GI prophylaxis with PPI. Will dexamethasone taper ordered as per L form starting tomorrow. Gabapentin 300, oxycodone, as needed Tylenol and Robaxin for pain management. Anticipate Lau removal and trial of void today, communicated with nurse. I talked with Dr. Urbina, from his side, he is cleared for anticoagulation. Pending approval from retirement facility today Assessment & Plan (05/25/2025 7:58 AM EDT): Disc bulge at C3-C4, C4-C5, C5-C6 causing spinal canal and neural foraminal stenosis. Disc bulge at L2-L3, L3-L4, L4-5 with spinal canal and neural foraminal stenosis. - Consult to neurosurgery - Consult to neurology - q4h neuro checks - q4h vital signs Assessment & Plan (05/24/2025 12:51 PM EDT): Disc bulge at C3-C4, C4-C5, C5-C6 causing spinal canal and neural foraminal stenosis. Disc bulge at L2-L3, L3-L4, L4-5 with spinal canal and neural foraminal stenosis. - Consult to neurosurgery - Consult to neurology - q4 neuro checks Assessment & Plan (05/23/2025 1:53 PM EDT): Disc bulge at C3-C4, C4-C5, C5-C6 causing spinal canal and neural foraminal stenosis. Disc bulge at L2-L3, L3-L4, L4-5 with spinal canal and neural foraminal stenosis. - Consult to neurosurgery - Consult to neurology Assessment & Plan (05/22/2025 9:28 AM EDT): Disc bulge at C3-C4, C4-C5, C5-C6 causing spinal canal and neural foraminal stenosis. Disc bulge at L2-L3, L3-L4, L4-5 with spinal canal and neural foraminal stenosis. - Consult to neurosurgery - Consult to neurology Hyponatremia 05/22/2025 Assessment & Plan (05/25/2025 7:58 AM EDT): Initial sodium of 130 on 05/21. Repeat sodium of 134 on 05/24. - Trend BMP - Consult to Nutrition Assessment & Plan (05/24/2025 8:29 AM EDT): Initial sodium of 130 on 05/21. - Trend BMP - Nutrition consult Assessment & Plan (05/23/2025 1:53 PM EDT): Initial sodium of 130 on 05/21. - Trend BMP - Nutrition consult Assessment & Plan (05/22/2025 9:28 AM EDT): Initial sodium of 130 on 05/21. - Trend BMP - Nutrition consult Hemangioma 05/22/2025 Assessment & Plan (05/27/2025 1:12 PM EDT): 1.5 cm T9 lesion suggestive of hemangioma - Consult to neurosurgery no further recommendations at this time Assessment & Plan (05/26/2025 8:14 AM EDT): 1.5 cm T9 lesion suggestive of hemangioma - Consult to neurosurgery Assessment & Plan (05/25/2025 7:58 AM EDT): 1.5 cm T9 lesion suggestive of hemangioma - Consult to neurosurgery Assessment & Plan (05/24/2025 8:29 AM EDT): 1.5 cm T9 lesion suggestive of hemangioma - Consult to neurosurgery Assessment & Plan (05/23/2025 1:53 PM EDT): 1.5 cm T9 lesion suggestive of hemangioma - Consult to neurosurgery Assessment & Plan (05/22/2025 9:28 AM EDT): 1.5 cm T9 lesion suggestive of hemangioma - Consult to neurosurgery Primary osteoarthritis of left hip 04/19/2025 HTN (hypertension) 03/31/2024 Assessment & Plan (05/27/2025 1:12 PM EDT): Home medication irbesartan 300 mg daily and nifedipine 30 mg daily - Holding as patient is normotensive. Assessment & Plan (05/26/2025 8:14 AM EDT): Home medication irbesartan 300 mg daily and nifedipine 30 mg daily - Holding as patient is normotensive. Assessment & Plan (05/25/2025 7:58 AM EDT): Home medication irbesartan 300 mg daily and nifedipine 30 mg daily - Holding as patient is normotensive. Assessment & Plan (05/24/2025 8:29 AM EDT): Home medication irbesartan 300 mg daily and nifedipine 30 mg daily - Holding as patient is normotensive. Assessment & Plan (05/23/2025 1:53 PM EDT): Home medication irbesartan 300 mg daily and nifedipine 30 mg daily - Holding as patient is normotensive. Assessment & Plan (05/22/2025 12:35 PM EDT): Home medication irbesartan 300 mg daily and nifedipine 30 mg daily - Holding as patient is normotensive. Assessment & Plan (05/22/2025 5:18 AM EDT): Home medication irbesartan 300 mg daily and nifedipine 30 mg daily - Patient is normoten due for sive, can hold for now. Resume as indicated Encounters Date Type Department Care Team Description 06/08/2025 11:15 AM EDT Office Visit Neurosurgery [facility] [address] [place] [address] Sandy Storm NP Status post cervical spinal fusion (Primary Dx) 06/01/2025 Plan of Care Documentation [facility] [address] [place] [phone] 05/31/2025 Telephone Neurosurgery [facility] [address] [place] [address] Noe Zhao MA 05/28/2025 2:22 PM EDT - 06/09/2025 11:00 AM EDT Hospital Encounter [facility] [address] [place] [phone] Angelica Vogt DO Discharge Disposition: Home or Self Care 05/27/2025 Telephone Neurosurgery [facility] [address] [place] [address] Noe Zhao MA 05/23/2025 10:16 AM EDT Anesthesia Event [facility] OR [address] [place] [phone] Bolivar España, 05/23/2025 9:20 AM EDT - 05/23/2025 1:[address] [facility] OR [address] [place] [phone] Parker Seay MD FUSION CERVICAL POSTERIOR WITH DECOMPRESSION C3-5 05/22/2025 3:33 AM EDT - 05/28/2025 1:44 PM EDT Hospital Encounter [facility] CV Surg Card [address] [place] [phone] Feliciano Kelly MD Kapoor, Rachna, MD Ali, Syed, MD Jacob, Dennis P, MD Acute deep vein thrombosis (DVT) of left peroneal vein (CMS/HCC V24, CMS/[facility] V28) (Primary Dx); Primary osteoarthritis of left hip Discharge Disposition: Rehab Facility 05/21/2025 5:53 PM EDT - 05/22/2025 2:57 AM EDT Emergency [facility] Emergency [address] [place] [phone] Maranda Murillo MD Kokkinos, Erika, MD Weakness of both legs (Primary Dx); Leg swelling; Acute deep vein thrombosis (DVT) of left peroneal vein (CMS/HCC V24, CMS/HCC V28); Weakness of both arms; Change in voice; Edema of spinal cord (CMS/HCC V24, CMS/HCC V28) Discharge Disposition: Short Term Hospital 04/27/2025 Telephone Orthopedic Surgery - [place] [address] [facility] [address] [place] [address] Shira Coe MA 04/16/2025 9:30 AM EDT Office Visit Orthopedic Surgery [facility] [address] [facility] [address] [place] [phone] Monica Euceda MD Chronic pain of left knee (Primary Dx) 04/16/2025 Telephone Orthopedic Surgery - [place] [address] [facility] [address] [place] [phone] Iraj Reese MD from Last 3 Months Surgical History Surgery Date Site/Laterality Comments CATARACT EXTRACTION PROCEDURE: HISTORICAL CATARACT REMOVAL Medical History Medical History Date Comments Hyperlipidemia 10/18/2022 DX:Hyperlipidemi a Social History Tobacco Use Types Packs/Day Years Used Date Smoking Tobacco: Former Cigarettes Smokeless Tobacco: Never Tobacco Cessation:Counseling Given: Not Answered Alcohol Use Standard Drinks/Week Comments Not Currently [...] not to disclose 2024 9:09 AM EDT Obstetrics History Last Filed Vital Signs Vital Sign Reading Time Taken Comments Blood Pressure 122/84 06/09/2025 11:00 AM EDT Pulse 67 06/09/2025 11:00 AM EDT Temperature 36.2 C (97.1 F) 06/09/2025 11:00 AM EDT Respiratory Rate 16 06/09/2025 11:00 AM EDT Oxygen Saturation 100% 06/09/2025 11:00 AM EDT Inhaled Oxygen Concentration - - Weight 66.2 kg (146 lb) 06/08/2025 12:04 PM EDT Height 175.3 cm (5' 9 ) 06/08/2025 12:04 PM EDT Body Mass Index 21.56 06/08/2025 12:04 PM EDT Plan of Treatment Upcoming Encounters Date Type Department Care Team (Late st Contact Info) Description 07/08/2025 2:30 PM EST Office Visit [facility] [address] [place] [phone] Parker Seay MD [address] [place], [place] [id number] Scheduled Procedures Name Priority Associated Diagnoses Date/Ti me ARTHROPLASTY HIP TOTAL Primary osteoarthritis of left hip Health Maintenance Due Date Last Done Comments Colorectal Cancer Screening: Colonoscopy 1960 DTaP,Tdap,and Td Vaccines (2 - Td or Tdap) 06/16/2019 06/16/2009 Abdominal Aortic Aneurysm (AAA) Screen 03/31/2024 Cholesterol Screening (Lipid Panel) 03/31/2024 Hepatitis C Screening 03/31/2024 Medicare Annual Wellness Visit 03/31/2024 COVID-19 Vaccine ( season) 2025 05/11/2024, 06/22/2023, 07/28/2022, Additional history exists Influenza Vaccine (#1) 2025 , 05/04/2023, 10/18/2022, Additional history exists Hypertension/CHF/CAD Annual BMP Blood Test 05/29/2026 05/29/2025, 05/28/2025, 05/27/2025, Additional history exists Falls Risk Assessment 06/08/2026 06/08/2025 Social Influencers of Health Screening 06/08/2026 06/08/2025 Zoster Vaccines Completed 08/13/2020, 06/05/2020 RSV Immunization Adult Patients Completed 07/21/2023 Pneumococcal Vaccine: 50+ Years Completed 07/12/2024 Depression Screening Completed 06/07/2025 HIB Vaccines Aged Out No longer eligi ble based on patient's age to complete this topic HPV Vaccines Aged Out No longer eligi ble based on patient's age to complete this topic Hepatitis A Vaccines Aged Out No long er eligible based on patient's age to complete this topic Hepatitis B Vaccines Aged Out No long er eligible based on patient's age to complete this topic IPV Vaccines Aged Out No longer eligi ble based on patient's age to complete this topic MMR Vaccines Aged Out No longer eligi ble based on patient's age to complete this topic Meningococcal ACWY Vaccine Aged Out N o longer eligible based on patient's age to complete this topic Meningococcal B Vaccine Aged Out No l onger eligible based on patient's age to complete this topic RSV Immunization Patients Under 20 months Aged Out No longer eligible based on patient's age to complete this topic Varicella Vaccines Aged Out No longer eligible based on patient's age to complete this topic Medical Devices Implanted Type Area Superintendent Automotive Device Identifier Shelf Expiration Date Model / Serial / Lot Kit Surgiflo W 2000 Units Ster Lyo - S- - [id number] Implanted:Qt y: 2 on 05/23/2025 by Parker Seay MD at [facility] Hem[employer]asis N/A: Spine Cervical [employer] 12/30/2025 [id number] / - / [id number] Chips Bio Cancellous 1-4mm Particle Range 5ml - [id number] - [id number] Implanted:Qt y: 1 on 05/23/2025 by Parker Seay MD at [facility] [employer] Bone N/A: Spine Cervical [employer] 04/08/2030 [id number] / [id number] / N/A Vesuvius 100 Dbm Bone Putty 5cc - [id number] - [id number] Implanted:Qt y: 1 on 05/23/2025 by Parker Seay MD at [facility] [employer] Bone N/A: Spine Cervical [employer]- [id number] 12/31/2027 [id number] 0DP / [id number] / [id number] Vikos Cervical 14x14.5x6mm 7d - [id number] - [id number] Implanted:Qt y: 1 on 05/23/2025 by Parker Seay MD at [facility] [employer] N/A: Spine Cervical LUDWIN SPINE 01/04/2029 [id number] 06L7 / [id number] / - Vikos Cervical 14x14.5x7mm 7d - [id number] - [id number] Implanted:Qt y: 1 on 05/23/2025 by Parker Seay MD at [facility] [employer] N/A: Spine Cervical LUDWIN SPINE 07/20/2029 [id number] 07L7 / [id number] / N?A Screw Spinal [place] Nonstrl - Sn/A - [id number] Implanted:Qt y: 6 on 05/23/2025 by Parker Seay MD at [facility] Spinal [employer]ware N/A: Spine Cervical LUDWIN SPINE- K2M [id number] 1 / N/A / N/A Plate Anterior Cervical Constr 2 Level 40mm - S- - [id number] Implanted:Qt y: 1 on 05/23/2025 by Parker Seay MD at [facility] [employer] N/A: Spine Cervical LUDWIN SPINE- K2M [id number] 0V / - / - Screw Va Self-Start 4x14mm - S- - [id number] Implanted:Qt y: 6 on 05/23/2025 by Parker Seay MD at [facility] Sp[employer] N/A: Spine Cervical LUDWIN SPINE- K2M [id number] 4DA / - / - Plate Anterior Cervical Constr 2 Level 40mm - Sn?A - [id number] Implanted:Qt y: 1 on 05/23/2025 by Parker Seay MD at [facility] Spinal [employer] N/A: Spine Cervical LUDWIN SPINE- K2M [id number] 0V / N?A / N?A Polyaxial Screw 3.5x14mm - Sn/A - [id number] Implanted:Qt y: 3 on 05/23/2025 by Parker Seay MD at [facility] Spinal Hardware N/A: Spine Cervical LUDWIN SPINE- K2M [id number] 4 / N/A / N/A Polyaxial Screw 3.5x12mm - Sn/A - [id number] Implanted:Qt y: 3 on 05/23/2025 by Parker Seay MD at [facility] Spinal Hardware N/A: Spine Cervical LUDWIN SPINE- K2M [id number] 2 / N/A / N/A Contoured Lai 3.5x35mm - Sn/A - [id number] Implanted:Qt y: 2 on 05/23/2025 by Parker Seay MD at [facility] Spinal Hardware N/A: Spine Cervical LUDWIN SPINE- K2M [id number] 5 / N/A / N/A Procedures Procedure Name Priority Date/Time Associated Diagnosis Comments XR BARIUM SWALLOW WITH VIDEO AND SPEECH Routine 06/07/2025 10:21 AM EDT ACOUSTIC ENGINEER VIDEOFLUOROSCOPIC SWALLOW STUDY WITH BARIUM Routine 06/07/2025 10:00 AM EDT CBC WITH AUTO DIFFERENTIAL Routine 05/29/2025 5:36 AM EDT COMPREHENSIVE METABOLIC PANEL Routine 05/29/2025 5:36 AM EDT CBC AND DIFFERENTIAL Routine 05/29/2025 5:36 AM EDT BASIC METABOLIC PANEL Timed 05/28/2025 6:28 AM EDT COMPLETE BLOOD COUNT Timed 05/28/2025 6:28 AM EDT POCT GLUCOSE BLOOD Routine 05/27/2025 3: 04 PM EDT XR BARIUM SWALLOW WITH VIDEO AND SPEECH Routine 05/27/2025 11:31 AM EDT ACOUSTIC ENGINEER VIDEOFLUOROSCOPIC SWALLOW STUDY WITH BARIUM Routine 05/27/2025 11:25 AM EDT BASIC METABOLIC PANEL Timed 05/27/2025 6:50 AM EDT COMPLETE BLOOD COUNT Timed 05/27/2025 6:50 AM EDT ACTIVATED PARTIAL THROMBOPLASTIN TIME STAT 05/26/2025 12:37 PM EDT PROTHROMBIN TIME WITH INR STAT 05/26/2025 12:37 PM EDT HEPATIC FUNCTION PANEL STAT Add-on 9:27 AM EDT BASIC METABOLIC PANEL Timed 05/26/2025 9:27 AM EDT COMPLETE BLOOD COUNT Timed 05/26/2025 9:27 AM EDT VAS US DUPLEX LOWER EXT VENOUS LEFT Routine 05/25/2025 8:13 AM EDT Acute deep vein thrombosis (DVT) of left peroneal vein (CMS/HCC V24, CMS/HCC V28) MAGNESIUM Timed 05/25/2025 7:55 AM EDT BASIC METABOLIC PANEL Timed 05/25/2025 7:55 AM EDT COMPLETE BLOOD COUNT Timed 05/25/2025 7:55 AM EDT XR BARIUM SWALLOW WITH VIDEO AND SPEECH Routine 05/24/2025 11:31 AM EDT ACOUSTIC ENGINEER VIDEOFLUOROSCOPIC SWALLOW STUDY WITH BARIUM Routine 05/24/2025 10:45 AM EDT HEPATIC FUNCTION PANEL Routine 6:38 AM EDT MAGNESIUM Timed 05/24/2025 6:38 AM EDT BASIC METABOLIC PANEL Timed 05/24/2025 6:38 AM EDT COMPLETE BLOOD COUNT Timed 05/24/2025 6:38 AM EDT XR CERVICAL SPINE 2-3 VIEWS Routine 05/23/2025 2:00 PM EDT XR FLUORO UP TO 1 HOUR (STATISTICS)(NO REPORT) Routine 05/23/2025 2:00 PM EDT FUSION CERVICAL POSTERIOR MULTI LEVEL 2 ROBOT 05/23/2025 10:16 AM EDT FUSION CERVICAL ANTERIOR LEVEL 1 05/23/2025 10:16 AM EDT FUSION CERVICAL POSTERIOR WITH DECOMPRESSION LEVEL 4 05/23/2025 10:16 AM EDT ABO RH Routine 05/23/2025 10:13 AM EDT TYPE AND SCREEN Routine 05/23/2025 10:06 AM EDT MAGNESIUM Timed 05/23/2025 6:43 AM EDT BASIC METABOLIC PANEL Timed 05/23/2025 6:43 AM EDT COMPLETE BLOOD COUNT Timed 05/23/2025 6:43 AM EDT MAGNESIUM Timed 05/23/2025 3:42 AM EDT BASIC METABOLIC PANEL Timed 05/23/2025 3:42 AM EDT COMPLETE BLOOD COUNT Timed 05/23/2025 3:42 AM EDT HEPARIN AND LOW MOLECULAR WEIGHT ANTI XA LEVEL Timed 05/22/2025 10:45 PM EDT HEPARIN AND LOW MOLECULAR WEIGHT ANTI XA LEVEL STAT 05/22/2025 4:16 PM EDT ECG 12-LEAD STAT 05/22/2025 3:31 PM EDT EMG Routine 05/22/2025 2:59 PM EDT BASIC METABOLIC PANEL Add-On 05/22/2025 7:05 AM EDT THYROID STIMULATING HORMONE WITH REFLEX FREE T4 Routine 05/22/2025 7:05 AM EDT MYOSITIS MARKER PANEL 3 Routine 05/22/20 7:[address] HEAD WO CONTRAST STAT 05/21/2025 1 0:05 PM EDT MR CERVICAL SPINE WO CONTRAST STAT 05/21/2025 9:05 PM EDT MR THORACIC SPINE WO CONTRAST STAT 05/21/2025 8:55 PM EDT MR LUMBAR SPINE WO CONTRAST STAT 05/21/2025 8:45 PM EDT ACTIVATED PARTIAL THROMBOPLASTIN TIME STAT 05/21/2025 7:50 PM EDT PROTHROMBIN TIME WITH INR STAT 05/21/2025 7:50 PM EDT C-REACTIVE PROTEIN STAT Add-on 05/21/2025 7: 32 PM EDT CBC WITH AUTO DIFFERENTIAL STAT 05/21/2025 7:32 PM EDT CREATINE KINASE STAT 05/21/2025 7:32 PM EDT CBC AND DIFFERENTIAL STAT 05/21/2025 7:32 PM EDT COMPREHENSIVE METABOLIC PANEL STAT 05/21/2025 7:32 PM EDT VAS US DUPLEX LOWER EXT VENOUS BILAT STAT 05/21/2025 7:18 PM EDT Leg swelling XR CHEST 1 VIEW STAT 05/21/2025 6:48 PM EDT XR KNEE 3 VIEWS LEFT Routine 04/16/2025 9:45 AM EDT Chronic pain of left knee WI ARTHROCENTESIS/ASPIRATIO N/INJECTION MAJOR JOINT/BURSA W/O U/S GUIDANCE Routine 04/16/2025 9:30 AM EDT Chronic pain of left knee from Last 3 Months Results * XR Barium Swallow with Video and Speech (06/07/2025 10:21 AM EDT) Only the most recent of3 resultswithin the time period is included. Anatomical Region Laterality Modality Head and Neck Radiographic Leana ging 06/07/2025 11:4 4 AM EDT Impressions 06/08/2025 3:16 PM EDT Deep penetration without aspiration noted on pudding consistency. No evidence for penetration or aspiration of any of the other various consistencies. Please refer to the dedicated speech pathologist report for further details as clinically indicated. -------- FINAL REPORT -------- Dictated By: Anny Manzano Dictated Date: 06/07/2025 11:44 ET Assigned Physician: Blair Cardenas Reviewed and Electronically Signed By: Blair Cardenas Signed Date: 06/08/2025 15:16 ET Workstation ID: [id number] Transcribed By: Self Edit Transcribed Date: 06/07/2025 11:51 ET Resident/PA/PONY RIDE ATTENDANT: Anny Manzano Narrative 06/08/2025 3:16 PM EDT CLINICAL HISTORY: dysphagia. STUDY: Modified barium swallow study COMPARISON: None at this facility HISTORY: Patient is a 64-year-old male with history of dysphagia status post anterior cervical spine fusion. TECHNIQUE: Multiple sequential fluoroscopic images of the lateral neck were obtained for a swallowing function study. Barium enhanced consistencies of pudding, honey, nectar, thin liquid, semi- solid, and a 13 mm barium tablet were utilized for evaluation. Examination was performed with the speech therapist present. FINDINGS: There is a small amount of deep penetration without aspiration noted on pudding consistency. There was no evidence for penetration or aspiration of any of the other various consistencies. 13mm barium tablet was swallowed without difficulty with prompt passage of pill from the esophagus into the stomach. DAP: 0.11 Gycm^2 Procedure Note Blair Cardenas MD - 06/08/2025 CLINICAL HISTORY: dysphagia. STUDY: Modified barium swallow study COMPARISON: None at this facility HISTORY: Patient is a 64-year-old male with history of dysphagia statuspost anterior cervical spine fusion. TECHNIQUE: Multiple sequential fluoroscopic images of the lateral neckwere obtained for a swallowing function study. Barium enhancedconsistencies of pudding, honey, nectar, thin liquid, semi-solid, and a 13mm barium tablet were utilized for evaluation. Examination was performedwith the speech therapist present. FINDINGS: There is a small amount of deep penetration without aspiration noted onpudding consistency. There was no evidence for penetration or aspirationof any of the other various consistencies. 13mm barium tablet wasswallowed without difficulty with prompt passage of pill from theesophagus into the stomach. DAP: 0.11 Gycm^2 IMPRESSION: Deep penetration without aspiration noted on pudding consistency. Noevidence for penetration or aspiration of any of the other variousconsistencies. Please refer to the dedicated speech pathologist report for furtherdetails as clinically indicated. -------- FINAL REPORT -------- Dictated By: Anny Manzano Dictated Date: 06/07/2025 11:44 ET Assigned Physician: Blair Cardenas Reviewed and Electronically Signed By: Blair Cardenas Signed Date: 06/08/2025 15:16 ET Workstation ID: [id number] Transcribed By: Self Edit Transcribed Date: 06/07/2025 11:51 ET Resident/PA/PONY RIDE ATTENDANT: Anny Manzano Angelica Vogt DO IMG FLUOROSCOPY PROCEDURE S Final Result * ACOUSTIC ENGINEER videofluoroscopic swallow study with barium (06/07/2025 10:00 AM EDT) Only the most recent of3 resultswithin the time period is included. Sveta Cervantes CCC-ACOUSTIC ENGINEER - 06/07/2025 10:00 AM EDT Sveta Guy CCC-GAYLA 06/07/2025 5:27 PM [facility] Modified Barium Swallow Study Patient Name: Eleanor Antoine Date of Evaluation: 06/07/2025 TIME IN: 945 TIME OUT: 1030 MINUTES: 45 Summary and Impressions: Eleanor Antoine is a 64 y.o. who presents with mild oropharyngeal dysphagia characterized by premature spillage, slow tongue movement, delayed swallow, adequate clearance through PES, incomplete vestibular closure and epiglottic inversion, and pharyngeal residue. Laryngeal penetration (PAS 2) noted w/ pudding consistency. No laryngeal penetration or tracheal aspiration noted across other consistencies. Barium pill passed through the pharynx without difficulty. Recommendations/Findings/Plan: Diet Recommendations: Soft & Bite-Sized / IDDSI-6 Liquid Administration via: Cup Medication Administration: PO Supervision: Independent Compensation/Maneuvers: Slow Rate, Small bites/sips, Alternating Solids and Liquids, and Hard Swallow Environmental Considerations: Upright Oral Hygiene: Frequent oral care 3x/day to reduce/prevent accumulation of pathogenic oropharyngeal bacteria. Treatment Plan: Skilled Dysphagia Therapy Treatment Frequency: 2-5x per wk Assessment Details: Past Medical History Past Surgical History Medical History[1] Surgical History[2] General Information: Ordering Physician: Angelica Vogt DO Radiologist: Anny Manzano PA-C Date of Order: 06/07/25 Date of Evaluation: 06/07/25 Type of Study: Repeat MBS Reason for Study: Pt presents w/ spinal cord edema and cirumferential C3-5 spinal fusion. Previous MBS on 05/27 at [place] reported The patient presents with a grossly functional oral phase of swallowing and a mild-moderate pharyngeal dysphagia, suspected to be acute in nature in the setting of a circumferential C3-5 spinal fusion (POD #4).Silent aspiration continues to occur across consistencies trialed, with the largest volume aspiration occurring with thin liquids. Patient continues to have significant retention of residue, however, this greatly reduced with a cued hard swallow. Most notably, patient now able to eject the aspirated material from the trachea with a cued, hard cough. Recommend initiation of a modified diet of pureed solids // IDDSI 4 and mildly thick liquids // IDDSI 2. Patient MUST implement a hard/effortful swallow and also cough/reswallow after all sips/bites in order to clear pharyngeal residue and also eject aspirated material. Strict aspiration precautions should be in place for all PO intake. Repeat MBS to show improvements in pharyngeal swallow and advance pt's diet as appropriate. Diet Prior to this Study: IDDSI 4/2, puree and mildly thickened liquids w/ hard swallow and cough w/ all PO Dysphagia Diagnosis: (oropharyngeal dysphagia) Fluoroscopy view: Lateral Baseline Diet: regular/thin liquids Past History of Dysphagia: No baseline dysphagia. Previous MBS on 05/27 at [place] reported The patient presents with a grossly functional oral phase of swallowing and a mild-moderate pharyngeal dysphagia, suspected to be acute in nature in the setting of a circumferential C3-5 spinal fusion (POD #4).Silent aspiration continues to occur across consistencies trialed, with the largest volume aspiration occurring with thin liquids. Patient continues to have significant retention of residue, however, this greatly reduced with a cued hard swallow. Most notably, patient now able to eject the aspirated material from the trachea with a cued, hard cough. Recommend initiation of a modified diet of pureed solids // IDDSI 4 and mildly thick liquids // IDDSI 2. Patient MUST implement a hard/effortful swallow and also cough/reswallow after all sips/bites in order to clear pharyngeal residue and also eject aspirated material. Strict aspiration precautions should be in place for all PO intake. Current Diet: Puree / IDDSI-4 and Mildly Thick Liquids / IDDSI-2 Dentition: Adequate Respiratory status: Room air Positioning During Eval/Treatment: MBS chair Behaviors During Eval/Treatment: WFL Oral/Motor: Oral mech comments: Please refer to initial swallow eval Consistencies Trialed: Regular Solids, Puree / IDDSI-4, Thin/Regular liquids , Mildly Thick Liquids / IDDSI-2, and Moderately Thick Liquids / IDDSI -3 Oral Phase: Impaired Oral Phase: Impaired Oral Phase: Impaired Oral Phase - Comment Oral Phase - Comment: Pt demonstrated an adequate labial seal and premature spillage across consistencies. Pt had timely mastication and was noted to have piecemeal degulation w/ the regular solid. Pt had slow tongue movement w/ the liquids and occasional repetitive lingual motion w/ the solids. Pt had oral residue that increased w/ thicker consistencies and solids but was cleared by the end of trials. The pharyngeal swallow was initiated at the level of the pryiforms. Pharyngeal Phase: Impaired Pharyngeal Phase: Impaired Pharyngeal Phase: Impaired Pharyngeal Phase - Comment Pharyngeal Comment: Pt demonstrated adequate hyolaryngeal elevation and soft palate elevation. Pt was noted to have incomplete epiglottic inversion and incomplete laryngeal vestibular closure. Pt had a diminished pharyngeal stripping wave and incomplete base of tongue retraction. Pt demonstrated adequate clearance through the PES. Pt was noted to have pharyngeal residue in the velleculae, aryiepiglottic folds, and in the pryiforms. Increased vellecular and residue on the base of tongue w/ the regular solid trial. Laryngeal penetration (PAS 2) was noted w/ the pudding consistency trial. No laryngeal penetration or tracheal aspiration noted across other consistencies. Barium pill passed through the pharynx without difficulty. Cricopharyngeal/Esophageal Phase: Cricopharyngeal Comment: Pt had adequate clearance through the PES across consistencies but was noted to have slowness below the PES. Barium pill passed through the pharynx without retention. Cricopharyngeal Comment: Pt had adequate clearance through the PES across consistencies but was noted to have slowness below the PES. Barium pill passed through the pharynx without retention. 8- Point Penetration Aspiration Scale (PAS) Consistency- (IDDSI level) Score Comments Moderate thick liquids (3) 1- Material does not enter airway. Mildly thick liquids (2) 1- Material does not enter airway. Thin liquids (0) 1- Material does not enter airway. No penetration or aspiration w/ small sip, large sip, and straw sip Puree (4) 2- Material enters the airway, remains above the vocal folds, and is ejected from the airway. Regular solids (7) 1- Material does not enter airway. Barium tablet 1- Material does not enter airway. Other Rosenbek, ALEK, Chino Menjivar, Shalonda VOGEL, YUKI Rodriguez, & YUKI Gill. A Penetration-Aspiration Scale. Dysphagia 11:93-98, 1996. Compensatory Strategies Trialed: Slow Rate, Small bites/sips, Alternating Solids and Liquids, and Hard Swallow Education: Education provided: Diet Recommendations , Aspiration Precautions, Oral Hygiene , Swallow Strategies, and MBS video Verbal Understanding and Needs Practice / Reinforcement Sveta Guy, [facility]ACOUSTIC ENGINEER 06/07/2025 Please note that swallowing is a dynamic process and the skills reflected during this brief assessment may not necessarily represent the patient's swallowing function during an entire meal. Ongoing clinical judgment is strongly advised. [1] Past Medical History: Diagnosis Date Hyperlipidemia 10/18/2022 DX:Hyperlipidemia [2] Past Surgical History: Procedure Laterality Date CATARACT EXTRACTION PROCEDURE: HISTORICAL CATARACT REMOVAL us Angelica Vogt DO ACOUSTIC ENGINEER ORDERABLES Final Res ult * (ABNORMAL) CBC auto differential (05/29/2025 5:36 AM EDT) Only the most recent of2 resultswithin the time period is included. WBC 8.9 4.8 - 10.8 K/mcL LAB HEMETOLOGY METHOD 05/29/2025 6:16 AM [facility] RBC 3.80(L) 4.50 - 5.50 M/mcL LAB HEMETOLOGY METHOD 05/29/2025 6:16 AM [facility] Hemoglobin 12.6(L) 13.5 - 17.5 g/dL LAB HEMETOLOGY METHOD 05/29/2025 6:16 AM [facility] Hematocrit 38.7(L) 42.0 - 54.0 % LAB HEMETOLOGY METHOD 05/29/2025 6:16 AM [facility] MCV 100.8(H) 79.0 - 98.0 FL LAB HEMETOLOGY METHOD 05/29/2025 6:16 AM [facility] MCH 32.8(H) 27.0 - 32.0 pcg LAB HEMETOLOGY METHOD 05/29/2025 6:16 AM [facility] MCHC 32.6 32.0 - 37.0 g/dL LAB HEMETOLOGY METHOD 05/29/2025 6:16 AM [facility] RDW 13.9 11.0 - 15.0 % LAB HEMETOLOGY METHOD 05/29/2025 6:16 AM [facility] Platelets 207 130 - 400 K/mcL LAB HEMETOLOGY METHOD 05/29/2025 6:16 AM [facility] MPV 9.9 7.0 - 11.0 FL LAB HEMETOLOGY METHOD 05/29/2025 6:16 AM [facility] NRBC 0.0 <1.0 % LAB HEMETOLOGY METHOD 05/29/2025 6:16 AM [facility] NRBC Absolute 0.00 <0.10 K/mcL LAB HEMETOLOGY METHOD 05/29/2025 6:16 AM [facility] Neutrophils Relative 77.1 % LAB HEMETOLOGY METHOD 05/29/2025 6:16 AM [facility] Lymphocytes Relative 15.5 % LAB HEMETOLOGY METHOD 05/29/2025 6:16 AM [facility] Monocytes Relative 6.7 % LAB HEMETOLOGY METHOD 05/29/2025 6:16 AM [facility] Eosinophils Relative 0.1 % LAB HEMETOLOGY METHOD 05/29/2025 6:16 AM [facility] Basophils Relative 0.1 % LAB HEMETOLOGY METHOD 05/29/2025 6:16 AM [facility] Immature Granulocytes Relative 0.5 % LAB HEMETOLOGY METHOD 05/29/2025 6:16 AM [facility] Neutrophils Absolute 6.83 1.50 - 7.00 K/mcL LAB HEMETOLOGY METHOD 05/29/2025 6:16 AM EDT [facility] Lymphocytes Absolute 1.37 1.00 - 5.00 K/[facility] LAB HEMETOLOGY METHOD 05/29/2025 6:16 AM EDT [facility] Monocytes Absolute 0.59 0.20 - 1.00 K/[facility] LAB HEMETOLOGY METHOD 05/29/2025 6:16 AM EDT [facility] Eosinophils Absolute 0.01 0.00 - 0.50 K/[facility] LAB HEMETOLOGY METHOD 05/29/2025 6:16 AM EDT [facility] Basophils Absolute 0.01 0.00 - 0.20 K/[facility] LAB HEMETOLOGY METHOD 05/29/2025 6:16 AM EDT [facility] Immature Granulocytes Absolute 0.04(H) 0.00 - 0.03 K/[facility] LAB HEMETOLOGY METHOD 05/29/2025 6:16 AM EDT [facility] Blood Venous blood specimen / Unknown Venipuncture / Unknown 05/29/2025 5:36 AM EDT 05/29/2025 6:08 AM EDT us Miguel CORMIER LAB BLOOD ORDERABLES Final Resu lt [facility] [address] [place] [address], * (ABNORMAL) Comprehensive metabolic panel (05/29/2025 5:36 AM EDT) Only the most recent of2 resultswithin the time period is included. Sodium 138 133 - 145 mmol/L LAB CHEMISTRY METHOD 05/29/2025 6:54 AM EDT [facility] Potassium 4.0 3.5 - 5.5 mmol/L LAB CHEMISTRY METHOD 05/29/2025 6:54 AM EDT [facility] Chloride 105 96 - 110 mmol/L LAB CHEMISTRY METHOD 05/29/2025 6:54 AM [facility] CO2 29 21 - 32 mmol/L LAB CHEMISTRY METHOD 05/29/2025 6:54 AM [facility] Anion Gap 4 3 - 11 LAB CHEMISTRY METHOD 05/29/2025 6:54 AM [facility] Glucose 101(H) 70 - 100 mg/dL LAB CHEMISTRY METHOD 05/29/2025 6:54 AM [facility] BUN 18 5 - 25 mg/dL LAB CHEMISTRY METHOD 05/29/2025 6:54 AM [facility] Creatinine 0.37(L) 0.70 - 1.30 mg/dL LAB CHEMISTRY METHOD 05/29/2025 6:54 AM [facility] eGFR 124 >=60 mL/min/1. 73m2 LAB CHEMISTRY METHOD 05/29/2025 6:54 AM [facility] Comment:Calculation based on the Chronic Kidney Disease Epidemiology Collaboration (CKD-EPI) equation refit without adjustment for race. BUN/Creatinine Ratio 48.6 LAB CHEMISTRY METHOD 05/29/2025 6:54 AM [facility] Calcium 8.8 8.5 - 10.5 mg/dL LAB CHEMISTRY METHOD 05/29/2025 6:54 AM [facility] AST (SGOT) 25 10 - 42 unit/L LAB CHEMISTRY METHOD 05/29/2025 6:54 AM [facility] ALT (SGPT) 73(H) 10 - 60 unit/L LAB CHEMISTRY METHOD 05/29/2025 6:54 AM [facility] Alkaline Phosphatase 96 42 - 121 unit/L LAB CHEMISTRY METHOD 05/29/2025 6:54 AM [facility] Total Protein 5.5(L) 6.0 - 8.0 g/dL LAB CHEMISTRY METHOD 05/29/2025 6:54 AM [facility] Albumin 3.1(L) 3.2 - 5.0 g/dL LAB CHEMISTRY METHOD 05/29/2025 6:54 AM EDT [facility] Total Bilirubin 0.6 0.0 - 1.4 mg/dL LAB CHEMISTRY METHOD 05/29/2025 6:54 AM EDT [facility] Blood Venous blood specimen / Unknown Venipuncture / Unknown 05/29/2025 5:36 AM EDT 05/29/2025 6:08 AM EDT us Miguel CORMIER LAB BLOOD ORDERABLES Final Resu lt [facility] [address] [place] [address], [place] [phone] * (ABNORMAL) Complete blood count (05/28/2025 6:28 AM EDT) Only the most recent of7 resultswithin the time period is included. WBC 7.7 4.0 - 10.5 K/mcL LAB HEMETOLOGY METHOD 05/28/2025 7:03 AM EDT [facility] RBC 3.58(L) 4.70 - 6.00 M/mcL LAB HEMETOLOGY METHOD 05/28/2025 7:03 AM EDT [facility] Hemoglobin 12.3(L) 13.5 - 18.0 g/dL LAB HEMETOLOGY METHOD 05/28/2025 7:03 AM EDT [facility] Hematocrit 36.3(L) 40.0 - 54.0 % LAB HEMETOLOGY METHOD 05/28/2025 7:03 AM EDT [facility] MCV 101.4(H) 78.0 - 100.0 FL LAB HEMETOLOGY METHOD 05/28/2025 7:03 AM EDT [facility] MCH 34.2(H) 25.0 - 33.0 pcg LAB HEMETOLOGY METHOD 05/28/2025 7:03 AM EDT [facility] MCHC 33.7 32.0 - 36.0 g/dL LAB HEMETOLOGY METHOD 05/28/2025 7:03 AM EDT [facility] RDW 14.3 12.1 - 17.7 % LAB HEMETOLOGY METHOD 05/28/2025 7:03 AM EDT [facility] Platelets 191 150 - 450 K/mcL LAB HEMETOLOGY METHOD 05/28/2025 7:03 AM EDT [facility] MPV 7.8 7.4 - 11.4 FL LAB HEMETOLOGY METHOD 05/28/2025 7:03 AM EDT [facility] Blood Venous blood specimen / Unknown Venipuncture / Unknown 05/28/2025 6:28 AM EDT 05/28/2025 6:52 AM EDT Pati Shelton MD LAB BLOOD ORDERABLES Final Resu lt [facility] [address] [place] [address], [place] [phone] * (ABNORMAL) Basic metabolic panel (05/28/2025 6:28 AM EDT) Only the most recent of8 resultswithin the time period is included. Sodium 139 135 - 145 mmol/L LAB CHEMISTRY METHOD 05/28/2025 7:21 AM EDT [facility] Potassium 3.9 3.5 - 5.1 mmol/L LAB CHEMISTRY METHOD 05/28/2025 7:21 AM EDT [facility] Chloride 103 98 - 107 mmol/L LAB CHEMISTRY METHOD 05/28/2025 7:21 AM EDT [facility] CO2 29 24 - 32 mmol/L LAB CHEMISTRY METHOD 05/28/2025 7:21 AM EDT [facility] Anion Gap 7 5 - 14 LAB CHEMISTRY METHOD 05/28/2025 7:21 AM EDT [facility] Glucose 99 70 - 199 mg/dL LAB CHEMISTRY METHOD 05/28/2025 7:21 AM EDT [facility] BUN 24(H) 9 - 20 mg/dL LAB CHEMISTRY METHOD 05/28/2025 7:21 AM EDT [facility] Creatinine 0.30(L) 0.70 - 1.30 mg/dL LAB CHEMISTRY METHOD 05/28/2025 7:21 AM EDT [facility] eGFR 132 >=60 mL/min/1. 73m2 LAB CHEMISTRY METHOD 05/28/2025 7:21 AM EDT [facility] Comment:Calculation based on the Chronic Kidney Disease Epidemiology Collaboration (CKD-EPI) equation refit without adjustment for race. BUN/Creatinine Ratio 80.0(H) 12.0 - 20.0 LAB CHEMISTRY METHOD 05/28/2025 7:21 AM EDT [facility] Calcium 8.6 8.4 - 10.2 mg/dL LAB CHEMISTRY METHOD 05/28/2025 7:21 AM EDT [facility] Blood Venous blood specimen / Unknown Venipuncture / Unknown 05/28/2025 6:28 AM EDT 05/28/2025 6:52 AM EDT us Pati Shelton MD LAB BLOOD ORDERABLES Final Resu lt [facility] [address] [place] [address], [place] [phone] * POCT Glucose, blood (05/27/2025 3:04 PM EDT) [facility] Glucose POCT 102 70 - 199 mg/dL 05/27/2025 3:05 PM EDT [facility] Comment: Fasting Reference Range: 70-99 mg/dL Non-Fasting Reference Range: 70-199 mg/dL Blood Capillary blood specimen / Unknown 05/27/2025 3:04 PM EDT 05/27/2025 3:06 PM EDT us Lio Alvarez MD LAB POINT OF CARE TE ST DOCKED DEVICE UNSOLICITED RESULTS Final Result Performing Organization Address City/[facility]/ZIP Co de Phone Number [facility] [address] [place] [address], [place] [phone] * Activated Partial Thromboplastin Time - STAT (05/26/2025 12:37 PM EDT) Only the most recent of2 resultswithin the time period is included. aPTT 29.1 25.0 - 37.0 sec LAB COAGULATION METHOD 05/26/2025 1:29 PM EDT [facility] Blood Venous blood specimen / Unknown Venipuncture / Unknown 05/26/2025 12:37 PM EDT 05/26/2025 1:02 PM EDT us Lio Alvarez MD LAB BLOOD ORDERABLES Final Res ult [facility] [address] [place] [address], [place] [phone] * Prothrombin Time with INR - STAT (05/26/2025 12:37 PM EDT) Only the most recent of2 resultswithin the time period is included. Protime 12.6 10.5 - 13.3 sec LAB COAGULATION METHOD 05/26/2025 1:29 PM EDT [facility] INR 1.1 0.8 - 1.1 LAB COAGULATION METHOD 05/26/2025 1:29 PM EDT [facility] Blood Venous blood specimen / Unknown Venipuncture / Unknown 05/26/2025 12:37 PM EDT 05/26/2025 1:02 PM EDT Narrative [facility] - 05/26/2025 1:29 PM EDT Std. Therapy 2.0-3.0 INR High Dose Therapy 3.0-4.5 INR Ranges may vary depending on clinical indications and protocol. us Lio Alvarez MD LAB BLOOD ORDERABLES Final Res ult [facility] [address] [place] [address], [place] [phone] * (ABNORMAL) Hepatic Function Panel - STAT (05/26/2025 9:27 AM EDT) Only the most recent of2 resultswithin the time period is included. ALT (SGPT) 25 7 - 52 unit/L LAB CHEMISTRY METHOD 05/26/2025 12:26 PM EDT [facility] AST (SGOT) 23 5 - 40 unit/L LAB CHEMISTRY METHOD 05/26/2025 12:26 PM EDT [facility] Alkaline Phosphatase 75 34 - 104 unit/L LAB CHEMISTRY METHOD 05/26/2025 12:26 PM EDT [facility] Bilirubin, Direct 0.1 0.0 - 0.2 mg/dL LAB CHEMISTRY METHOD 05/26/2025 12:26 PM EDT [facility] Total Bilirubin 0.7 0.3 - 1.0 mg/dL LAB CHEMISTRY METHOD 05/26/2025 12:26 PM EDT [facility] Total Protein 5.9(L) 6.4 - 8.5 g/dL LAB CHEMISTRY METHOD 05/26/2025 12:26 PM EDT [facility] Albumin 3.8 3.5 - 5.0 g/dL LAB CHEMISTRY METHOD 05/26/2025 12:26 PM EDT [facility] Globulin, Total 2.1(L) 2.3 - 3.5 g/dL LAB CHEMISTRY METHOD 05/26/2025 12:26 PM EDT [facility] A/G Ratio 1.8 LAB CHEMISTRY METHOD 05/26/2025 12:26 PM EDT [facility] Blood Venous blood specimen / Unknown Venipuncture / Unknown 05/26/2025 9:27 AM EDT 05/26/2025 9:56 AM EDT us Lio Alvarez MD LAB BLOOD ORDERABLES Final Res ult [facility] [address] [place] [address], [place] [phone] * Vascular US duplex lower extremity venous left (05/25/2025 8:13 AM EDT) Anatomical Region Laterality Modality Vascular, Abdomen Ultrasound 05/25/2025 9:22 AM EDT Impressions 05/25/2025 9:25 AM EDT Near occlusive thrombus within the posterior tibial and peroneal veins of the left calf. No evidence of deep venous thrombosis within the left common femoral, femoral, or popliteal veins. -------- FINAL REPORT -------- Dictated By: Nasir Riley Dictated Date: 05/25/2025 09:22 ET Assigned Physician: Nasir Riley Reviewed and Electronically Signed By: Nasir Riley Signed Date: 05/25/2025 09:25 ET Workstation ID: [id number] Transcribed By: Self Edit Transcribed Date: 05/25/2025 09:22 ET Narrative 05/25/2025 9:25 AM EDT CLINICAL INFORMATION: History of known deep vein thrombosis on anticoagulation COMPARISON: None available TECHNIQUE: Ultrasound of the LEFT lower extremity deep venous system is obtained. A duplex doppler study is performed, consisting of integrated two-dimensional (2D) real-time imaging: color flow doppler and doppler spectral analysis. FINDINGS: LEFT LOWER EXTREMITY: COMMON FEMORAL VEIN: Normal compressibility, phasicity, and flow. FEMORAL VEIN: -PROXIMAL: Normal compressibility and flow. -MID: Normal compressibility and flow. -DISTAL: Normal compressibility and flow. POPLITEAL VEIN: Normal compressibility and flow. CALF VEINS: Left posterior tibial vein and peroneal veins are noncompressible with minimal flow No LEFT popliteal fossa collection is identified. Procedure Note Nasir Riley MD - 05/25/2025 CLINICAL INFORMATION: History of known deep vein thrombosis onanticoagulation COMPARISON: None available TECHNIQUE: Ultrasound of the LEFT lower extremity deep venous system isobtained. A duplex doppler study is performed, consisting of integratedtwo-dimensional (2D) real-time imaging: color flow doppler and dopplerspectral analysis. FINDINGS: LEFT LOWER EXTREMITY: COMMON FEMORAL VEIN: Normal compressibility, phasicity, and flow. FEMORAL VEIN: -PROXIMAL: Normal compressibility and flow. -MID: Normal compressibility and flow. -DISTAL: Normal compressibility and flow. POPLITEAL VEIN: Normal compressibility and flow. CALF VEINS: Left posterior tibial vein and peroneal veins arenoncompressible with minimal flow No LEFT popliteal fossa collection is identified. IMPRESSION: Near occlusive thrombus within the posterior tibial and peroneal veins ofthe left calf. No evidence of deep venous thrombosis within the left common femoral,femoral, or popliteal veins. -------- FINAL REPORT -------- Dictated By: Nasir Riley Dictated Date: 05/25/2025 09:22 ET Assigned Physician: Nasir Riley Reviewed and Electronically Signed By: Nasir Riley Signed Date: 05/25/2025 09:25 ET Workstation ID: [id number] Transcribed By: Self Edit Transcribed Date: 05/25/2025 09:22 ET Pati Shelton MD CV VASCULAR PROCEDURES Final Re sult * Magnesium (05/25/2025 7:55 AM EDT) Only the most recent of4 resultswithin the time period is included. Magnesium 2.2 1.7 - 2.8 mg/dL LAB CHEMISTRY METHOD 05/25/2025 8:52 AM EDT [facility] Blood Venous blood specimen / Unknown Venipuncture / Unknown 05/25/2025 7:55 AM EDT 05/25/2025 8:19 AM EDT Pati Shelton MD LAB BLOOD ORDERABLES Final Resu lt [facility] [address] [place] [address], [place] [phone] * XR Cervical Spine 2-3 Views (05/23/2025 2:00 PM EDT) Anatomical Region Laterality Modality Spine, C-spine Radiographic Leana ging 05/23/2025 2:05 PM EDT Impressions 05/23/2025 2:05 PM EDT Operative -------- FINAL REPORT -------- Dictated By: Kurt Bhatai Dictated Date: 05/23/2025 14:05 ET Assigned Physician: Kurt Bhatia Reviewed and Electronically Signed By: Kurt Bhatia Signed Date: 05/23/2025 14:05 ET Workstation ID: [id number] Transcribed By: Self Edit Transcribed Date: 05/23/2025 14:05 ET Narrative 05/23/2025 2:05 PM EDT INDICATION: Operative Comparison: None available. Technique: 2 digital spot images are obtained portably in the OR with 0.1 minutes of fluoroscopy time and dose of 1.39 mGy. FINDINGS: Images are taken during cervical fusion hardware. Procedure Note Kurt Bhatia MD - 05/23/2025 INDICATION: Operative Comparison: None available. Technique: 2 digital spot images are obtained portably in the OR with 0.1minutes of fluoroscopy time and dose of 1.39 mGy. FINDINGS: Images are taken during cervical fusion hardware. IMPRESSION: Operative -------- FINAL REPORT -------- Dictated By: Kurt Bhatia Dictated Date: 05/23/2025 14:05 ET Assigned Physician: Kurt Bhatia Reviewed and Electronically Signed By: Kurt Bhatia Signed Date: 05/23/2025 14:05 ET Workstation ID: [id number] Transcribed By: Self Edit Transcribed Date: 05/23/2025 14:05 ET Parker Seay MD IMG XR PROCEDURES Final Result * XR Fluoro Up To 1 Hour (Statistics)(No Report) (05/23/2025 2:00 PM EDT) Narrative RIS PACS/VR - 05/23/2025 2:00 PM EDT This order has been auto-finalized and does not contain a result. us Parker Seay MD IMG FLUOROSCOPY PROCEDURES Final Result RIS PACS/VR * ABO Rh (05/23/2025 10:13 AM EDT) ABO Group O 05/23/2025 11:26 AM EDT [facility] Rh Type Positive 05/23/2025 11:26 AM EDT [facility] Blood Venous blood specimen / Unknown Venipuncture / Unknown 05/23/2025 10:13 AM EDT 05/23/2025 10:29 AM EDT us Parker Seay MD LAB BLOOD BANK TEST ORDERABLES F inal Result [facility] [address] [place] [id number], [place] [phone] * Type and screen (05/23/2025 10:06 AM EDT) ABO Group O 05/23/2025 11:26 AM EDT [facility] Rh Type Positive 05/23/2025 11:26 AM EDT [facility] Antibody Screen Negative 05/23/2025 11:26 AM EDT [facility] Blood Venous blood specimen / Unknown Venipuncture / Unknown 05/23/2025 10:06 AM EDT 05/23/2025 10:29 AM EDT us Bolivar España DO LAB BLOOD BANK TEST ORDERAB LES Final Result [facility] [address] [place] [address], [place] [phone] * Heparin and low molecular weight anti Xa level (05/22/2025 10:45 PM EDT) Only the most recent of2 resultswithin the time period is included. Heparin Anti-Xa 0.60 I Unit/mL LAB COAGULATION METHOD 05/22/2025 11:12 PM EDT [facility] Blood Venous blood specimen / Unknown Venipuncture / Unknown 05/22/2025 10:45 PM EDT 05/22/2025 10:50 PM EDT Narrative [facility] - 05/22/2025 11:12 PM EDT Therapeutic Ranges Heparin Thromboembolic/Standard/Full Dose Protocol: Age 18+ Years 0.30-0.70 IU/mL Age 0-17 Years 0.35-0.70 IU/mL Heparin Cardiac/Low Dose Protocol: 0.30-0.5 IU/mL Low Molecular Weight Heparin: Age 18+ Years 0.50-1.50 IU/mL Age 0-17 Years 0.50-1.00 IU/mL Pati Shelton MD LAB BLOOD ORDERABLES Final Resu lt [facility] [address] [place] [address], [place] [phone] * ECG 12 lead (05/22/2025 3:31 PM EDT) Ventricular Rate ECG 70 BPM GEMUSE Atrial Rate 70 BPM GEMUSE P-R Interval 184 ms GEMUSE QRS Duration 106 ms GEMUSE Q-T Interval 388 ms GEMUSE QTc 419 ms GEMUSE P Wave Henderson 56 degrees GEMUSE R Henderson -12 degrees GEMUSE T Henderson 46 degrees GEMUSE ECG Interpretation Normal sinus rhythm Normal ECG No previous ECGs available Confirmed by MARCELINO GONZALEZ ([id number]) on 05/22/2025 8:40:47 PM GEMUSE 05/22/2025 3:31 PM EDT 05/22/2025 8:40 PM EDT us Pati Shelton MD ECG ORDERABLES Final Result GEMUSE * EMG (05/22/2025 2:59 PM EDT) Narrative Bryan Washington MD - 05/22/2025 2:59 PM EDT Bryan Washington MD 05/22/2025 3:07 PM Test Date: 05/22/2025 Patient: Eleanor Antoine : 1960 Physician: Bryan Washington MD Sex: Male Height: cm Ref Phys: Feliciano Kelly MD ID#: [id number] Weight: lbs. Shank Taper: Patient Complaints: Patient is a 64 year-old male who presents with weakness in the bilateral upper and lower extremities for 3 weeks Patient History / Exam: Manual muscle testing revealed 1/5 bilaterally in LE left > right . UE-4+/5. Sensation testing revealed intact pin prick and light touch in all peripheral nerve and dermatomal distributions. Muscle stretch reflexes revealed 3+ bilaterally. NCV & EMG Findings: Evaluation of the left Fibular motor nerve showed reduced amplitude (Ankle, 0.6 mV), reduced amplitude (B Fib, 0.6 mV), reduced amplitude (Poplt, 0.5 mV), and decreased conduction velocity (B Fib-Ankle, 33 m/s). The right Fibular motor nerve showed prolonged distal onset latency (6.9 ms), reduced amplitude (Ankle, 0.3 mV), reduced amplitude (B Fib, 0.2 mV), reduced amplitude (Poplt, 0.3 mV), and decreased conduction velocity (B Fib-Ankle, 34 m/s). The left median motor nerve showed reduced amplitude (Wrist, 4.8 mV). The right median motor nerve showed reduced amplitude (Wrist, 3.3 mV) and reduced amplitude (Elbow, 2.8 mV). The left tibial motor nerve showed decreased conduction velocity (Knee-Ankle, 37 m/s). The right tibial motor nerve showed prolonged distal onset latency (6.9 ms), reduced amplitude (Ankle, 3.8 mV), moderately reduced amplitude (Knee, 2.6 mV), and decreased conduction velocity (Knee-Ankle, 29 m/s). The left median sensory nerve showed prolonged distal peak latency (3.7 ms) and decreased conduction velocity (Wrist-2nd Digit, 38 m/s). The right median sensory nerve showed decreased conduction velocity (Wrist-2nd Digit, 39 m/s). The left radial sensory nerve showed reduced amplitude (12.1 V) and decreased conduction velocity (Wrist-Base 1st Digit, 38 m/s). The left sural sensory and the right sural sensory nerves showed no response (Calf). The left ulnar sensory nerve showed prolonged distal peak latency (3.6 ms) and decreased conduction velocity (Wrist-5th Digit, 39 m/s). The right ulnar sensory nerve showed prolonged distal peak latency (3.6 ms), reduced amplitude (14.3 V), and decreased conduction velocity (Wrist-5th Digit, 39 m/s). All remaining nerves (as indicated in the following tables) were within normal limits. Left vs. Right side comparison data for the Fibular motor nerve indicates abnormal L-R latency difference (1.9 ms). The tibial motor nerve indicates abnormal L-R latency difference (1.5 ms). The ulnar motor nerve indicates abnormal L-R amplitude difference (37.5 %). The median sensory nerve indicates abnormal L-R amplitude difference (13.0 %). All remaining left vs. right side differences were within normal limits. F Wave studies indicate that the right tibial F wave has prolonged latency (68.87 ms). Needle evaluation of the right anterior tibialis, the right Fibularis Long, the right gastroc, the left anterior tibialis, the left Fibularis Long, and the left gastroc muscles showed diminished recruitment and moderately decreased interference pattern. All remaining muscles (as indicated in the following table) showed no evidence of electrical instability. Motor Nerve Conduction Studies Stim Site NR Onset (ms) Norm Onset (ms) O-P Amp (mV) Norm O-P Amp Site1 Site2 Delta-0 (ms) Dist (cm) Brody (m/s) Norm Brody (m/s) Left Fibular Motor (Ext Dig Brev) Ankle 5.0 <6.0 0.6 >2.0 B Fib Ankle 10.2 34.0 33 >40 B Fib 15.2 0.6 >2.0 Poplt B Fib 1.5 6.0 40 >40 Poplt 16.7 0.5 >2.0 Right Fibular Motor (Ext Dig Brev) Ankle 6.9 <6.0 0.3 >2.0 B Fib Ankle 10.0 34.0 34 >40 B Fib 16.9 0.2 >2.0 Poplt B Fib 1.1 6.0 55 >40 Poplt 18.0 0.3 >2.0 Left Median Motor (Abd Poll Brev) Wrist 3.7 <4.5 4.8 >5 Elbow Wrist 4.9 25.0 51 >50 Elbow 8.6 5.2 >5 Right Median Motor (Abd Poll Brev) Wrist 4.0 <4.5 3.3 >5 Elbow Wrist 5.0 25.0 50 >50 Elbow 9.0 2.8 >5 Left Tibial Motor (Abd Hernandez Brev) Ankle 5.4 <6.0 4.0 >4.0 Knee Ankle 9.5 35.0 37 >40 Knee 14.9 3.3 Right Tibial Motor (Abd Hernandez Brev) Ankle 6.9 <6.0 3.8 >4.0 Knee Ankle 11.6 34.0 29 >40 Knee 18.5 2.6 >2 Left Ulnar Motor (Abd Dig Minimi) Wrist 2.7 <3.4 8.0 >5 B Elbow Wrist 4.1 24.0 59 >50 B Elbow 6.8 7.6 >5 A Elbow B Elbow 1.6 10.0 62 >50 A Elbow 8.4 6.5 >5 Right Ulnar Motor (Abd Dig Minimi) Wrist 2.4 <3.4 5.0 >5 B Elbow Wrist 4.2 24.0 57 >50 B Elbow 6.6 5.3 >5 A Elbow B Elbow 2.0 10.0 50 >50 A Elbow 8.6 5.2 >5 F Wave Studies NR F-Lat (ms) Lat Norm (ms) L-R F-Lat (ms) L-R Lat Norm Right Tibial (Mrkrs) (Abd Hallucis) 68.87 <61 <5.7 Anti - Sensory Nerve Conduction Studies Stim Site NR Peak (ms) Norm Peak (ms) P-T Amp ( V) Norm P-T Amp Site1 Site2 Delta-P (ms) Dist (cm) Brody (m/s) Norm Brody (m/s) Left Median Anti Sensory (2nd Digit) Wrist 3.7 <3.6 16.0 >10 Wrist 2nd Digit 3.7 14.0 38 >44 Right Median Anti Sensory (2nd Digit) Wrist 3.6 <3.6 18.4 >10 Wrist 2nd Digit 3.6 14.0 39 >44 Left Radial Anti Sensory (Base 1st Digit) Wrist 2.6 <2.6 12.1 >14 Wrist Base 1st Digit 2.6 10.0 38 >50 Right Radial Anti Sensory (Base 1st Digit) Wrist 1.6 <2.6 15.1 >14 Wrist Base 1st Digit 1.6 10.0 63 >50 Left Sural Anti Sensory (Lat Mall) Calf NR <3.8 >7.0 Calf Lat Mall 14.0 >38 Right Sural Anti Sensory (Lat Mall) Calf NR <3.8 >7.0 Calf Lat Mall 14.0 >38 Left Ulnar Anti Sensory (5th Digit) Wrist 3.6 <3.1 18.0 >15.0 Wrist 5th Digit 3.6 14.0 39 >44 Right Ulnar Anti Sensory (5th Digit) Wrist 3.6 <3.1 14.3 >15.0 Wrist 5th Digit 3.6 14.0 39 >44 Sensory Comparison Studies Stim Site NR Peak (ms) Norm Peak (ms) P-T Amp ( V) Site1 Site2 Delta-P (ms) Norm Delta (ms) Right Median/Ulnar Palm Comparison (Wrist - 8cm) Median Palm 2.1 <2.5 52.8 Median Palm Ulnar Palm 0.2 <0.4 Ulnar Palm 2.3 <2.5 16.3 Electromyography Side Muscle Nerve Root Ins Act Fibs Psw Amp Dur Poly Recrt Int Pat Comment Right Deltoid Axillary C5-6 Nml Nml Nml Nml Nml 0 Nml Nml Right Biceps Musculocut C5-6 Nml Nml Nml Nml Nml 0 Nml Nml Right Triceps Radial C6-7-8 Nml Nml Nml Nml Nml 0 Nml Nml Right 1stDorInt Ulnar C8-T1 Nml Nml Nml Nml Nml 0 Nml Nml Right Abd Poll Brev Median C8-T1 Nml Nml Nml Nml Nml 0 Nml Nml Right VastusLat Femoral L2-4 Nml Nml Nml Nml Nml 0 Nml Nml Left RectFemoris Femoral L2-4 Nml Nml Nml Nml Nml 0 Nml Nml Right RectFemoris Femoral L2-4 Nml Nml Nml Nml Nml 0 Nml Nml Right AntTibialis Dp Br Fibular L4-5 Nml Nml Nml Nml Nml 0 Reduced 75% Right Fibularis Long Sup Br Fibular L5-S1 Nml Nml Nml Nml Nml 0 Reduced 75% Right Gastroc Tibial S1-2 Nml Nml Nml Nml Nml 0 Reduced 75% Left Deltoid Axillary C5-6 Nml Nml Nml Nml Nml 0 Nml Nml Left Biceps Musculocut C5-6 Nml Nml Nml Nml Nml 0 Nml Nml Left Triceps Radial C6-7-8 Nml Nml Nml Nml Nml 0 Nml Nml Left 1stDorInt Ulnar C8-T1 Nml Nml Nml Nml Nml 0 Nml Nml Left Abd Poll Brev Median C8-T1 Nml Nml Nml Nml Nml 0 Nml Nml Left VastusLat Femoral L2-4 Nml Nml Nml Nml Nml 0 Nml Nml Left AntTibialis Dp Br Fibular L4-5 Nml Nml Nml Nml Nml 0 Reduced 75% Left Fibularis Long Sup Br Fibular L5-S1 Nml Nml Nml Nml Nml 0 Reduced 75% Left Gastroc Tibial S1-2 Nml Nml Nml Nml Nml 0 Reduced 75% IMPRESSIONS: NCS and EMG study was performed on his both upper and lower extremities after informed consent. Abnormal study. 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 Specifically, there is no electrodiagnostic study evidence of acute inflammatory demyelinating polyneuropathy (AIDP) Clinical and MRI cervical and lumbar spine correlations are recommended. Thank you for the courtesy of this referral. Sincerely, Bryan Washington M.D. Board Certified Neurologist & Board Certified Clinical Neurophysiologist us Feliciano Kelly MD NEUROLOGY ORDERABLES Final Res ult * Myositis panel 3 (05/22/2025 7:05 AM EDT) Leonor-1 Ab <20 <20 Units 06/17/2025 3:09 [address] [facility] [address]-7 Ab Negative Negative 06/17/2025 3:09 AM EDT [facility] Comment: This test was developed and its performance characteristics determined by [facility]. It has not been cleared or approved by the Food and Drug Administration. PL-12 Ab Negative Negative 06/17/2025 3:09 AM EDT [facility] Comment: This test was developed and its performance characteristics determined by [facility]. It has not been cleared or approved by the Food and Drug Administration. Ej Ab Negative Negative 06/17/2025 3:09 AM EDT [facility] Comment: This test was developed and its performance characteristics determined by [facility]. It has not been cleared or approved by the Food and Drug Administration. Oj Ab Negative Negative 06/17/2025 3:09 AM EDT [facility] Comment: This test was developed and its performance characteristics determined by [facility]. It has not been cleared or approved by the Food and Drug Administration. SRP Ab Negative Negative 06/17/2025 3:09 AM EDT [facility] Comment: This test was developed and its performance characteristics determined by [facility]. It has not been cleared or approved by the Food and Drug Administration. NH-2 Ab Negative Negative 06/17/2025 3:09 AM EDT [facility] Comment: This test was developed and its performance characteristics determined by [facility]. It has not been cleared or approved by the Food and Drug Administration. TIF1 Gamma (P155/140) Ab <20 <20 Units 06/17/2025 3:09 AM EDT [facility] Comment: This test was developed and its performance characteristics determined by [facility]. It has not been cleared or approved by the Food and Drug Administration. MDA-5 (P140)(CADM-140) Ab <20 <20 Units 06/17/2025 3:09 AM EDT [facility] Comment: This test was developed and its performance characteristics determined by [facility]. It has not been cleared or approved by the Food and Drug Administration. NXP-2 (P140) Ab <20 <20 Units 3:09 AM EDT [facility] Comment: This test was developed and its performance characteristics determined by [facility]. It has not been cleared or approved by the Food and Drug Administration. Anti-PM/Scl-100 Ab <20 <20 Units 2024 3:09 AM EDT [facility] Comment: This test was developed and its performance characteristics determined by [facility]. It has not been cleared or approved by the Food and Drug Administration. U2 snRNP Ab Negative Negative 06/17/2025 3:09 AM EDT [facility] Comment: This test was developed and its performance characteristics determined by [facility]. It has not been cleared or approved by the Food and Drug Administration. Anti-U1-SCRAP CARRIER Ab <20 <20 Units 06/17/2025 3:09 AM EDT [facility] Ku Ab Negative Negative 06/17/2025 3:09 AM EDT [facility] Comment: This test was developed and its performance characteristics determined by [facility]. It has not been cleared or approved by the Food and Drug Administration. Anti-SS-A 52 kD Ab, IgG <20 <20 Units 06/17/2025 3:09 AM EDT [facility] Comment: This test was developed and its performance characteristics determined by [facility]. It has not been cleared or approved by the Food and Drug Administration. Fibrillarin (U3 SCRAP CARRIER) Ab Negative Negative 06/17/2025 3:09 AM EDT [facility] Comment: This test was developed and its performance characteristics determined by [facility]. It has not been cleared or approved by the Food and Drug Administration. Interpretation for Anti-Leonor-1, [id number], Anti-MDA-5, Anti-NXP-2, Anti-PM/Scl-100, Anti-SS-A 52 kD, Anti-U1 SCRAP CARRIER: Negative: <20 Weak Positive: 20 - 39 Moderate Positive: 40 - 80 Strong Positive: >80 . Test Performed by: [facility] [address] [place] [id number] Blood Venous blood specimen / Unknown Venipuncture / Unknown 05/22/2025 7:05 AM EDT 05/22/2025 8:07 AM EDT us Pati Shelton MD LAB BLOOD ORDERABLES Final Resu lt [facility] [address] [place] [address] * Thyroid stimulating hormone with reflex free T4 (05/22/2025 7:05 AM EDT) TSH 2.56 0.45 - 5.33 mcIU/mL LAB CHEMISTRY METHOD 05/22/2025 8:54 AM EDT [facility] Blood Venous blood specimen / Unknown Venipuncture / Unknown 05/22/2025 7:05 AM EDT 05/22/2025 8:07 AM EDT us Pati Shelton MD LAB BLOOD ORDERABLES Final Resu lt Performing Organization Address City/[facility]/ZIP Co de Phone Number [facility] [address] [place] [address], [place] [phone] * CT Head wo Contrast (05/21/2025 10:05 PM EDT) Anatomical Region Laterality Modality Head and Neck Computed Tomogra phy 05/21/2025 11:2 0 PM EDT Impressions 05/21/2025 11:20 PM EDT 1. Periventricular chronic microvascular ischemic changes. 2. No acute intracranial abnormality seen. This document has been electronically signed by: Maty Florence MD on 05/21/2025 23:20:11 Narrative 05/21/2025 11:20 PM EDT INDICATION: progressive ascending weakness CT head without contrast Comparison: None provided Findings: No intra-axial mass, midline shift, hydrocephalus, or acute hemorrhage. Periventricular chronic microvascular ischemic changes. The visualized paranasal sinuses and mastoid air cells are normal. The orbits are unremarkable. There is no acute fracture. No acute intracranial abnormality seen. Procedure Note Maty Florence MD - 05/21/2025 INDICATION: progressive ascending weakness CT head without contrast Comparison: None provided Findings: No intra-axial mass, midline shift, hydrocephalus, or acute hemorrhage. Periventricular chronic microvascular ischemic changes. The visualized paranasal sinuses and mastoid air cells are normal. The orbits are unremarkable. There is no acute fracture. No acute intracranial abnormality seen. IMPRESSION: 1. Periventricular chronic microvascular ischemic changes. 2. No acute intracranial abnormality seen. This document has been electronically signed by: Maty Florence MD on 05/21/2025 23:20:11 Jeanette Ann MD IMG CT PROCEDURES Final Result * MR Cervical Spine wo Contrast (05/21/2025 9:05 PM EDT) Anatomical Region Laterality Modality C-spine, Spine Magnetic Resonan ce 05/21/2025 9:50 PM EDT Addenda Addendum by Maty Florence MD on 05/21/2025 9:52 PM EDT ADDENDUM: This report was discussed with Jeanette Ann MD on May 21, 2025 21:52:00 EDT. This document has been electronically signed by: Ernestine Michelle on 05/21/2025 21:52:53 Impressions 05/21/2025 9:50 PM EDT 1. Extensive multilevel degenerative changes. 2. Broad-based disc bulge at C3-C4 as well as facet arthropathy causing moderate to severe spinal canal stenosis and evidence for cord edema as well as impingement both ventrally as well as the dorsal a aspect of the thecal sac. There is severe bilateral neural foraminal stenosis at this level. 3. Broad-based disc bulge at C4-C5 causing mild central spinal canal stenosis and mild bilateral neural foraminal stenosis. 4. Broad-based central disc bulge at C5-C6 causing mild central spinal canal stenosis and mild bilateral neural foraminal stenosis. This document has been electronically signed by: Maty Florence MD on 05/21/2025 21:50:01 Narrative 05/21/2025 9:50 PM EDT INDICATION: Myelopathy, acute or progressive MR cervical spine without gadolinium Comparison: None provided Findings: Vertebral alignment is within normal limits. Extensive multilevel degenerative changes. Broad-based disc bulge at C4-C5 causing mild central spinal canal stenosis and mild bilateral neural foraminal stenosis. Broad-based central disc bulge at C5-C6 causing mild central spinal canal stenosis and mild bilateral neural foraminal stenosis. No acute fractures or pathologic bone lesions. Visualized intracranial contents are unremarkable. No cervical fluid collections or masses. Broad-based disc bulge at C3-C4 as well as facet arthropathy causing moderate to severe spinal canal stenosis and evidence for cord edema as well as impingement both ventrally as well as the dorsal a aspect of the thecal sac. There is severe bilateral neural foraminal stenosis at this level. Procedure Note Maty Florence MD - 05/21/2025 INDICATION: Myelopathy, acute or progressive MR cervical spine without gadolinium Comparison: None provided Findings: Vertebral alignment is within normal limits. Extensive multilevel degenerative changes. Broad-based disc bulge at C4-C5 causing mild central spinal canalstenosis and mild bilateral neural foraminal stenosis. Broad-based central disc bulge at C5-C6 causing mild central spinalcanal stenosis and mild bilateral neural foraminal stenosis. No acute fractures or pathologic bone lesions. Visualized intracranial contents are unremarkable. No cervical fluid collections or masses. Broad-based disc bulge at C3-C4 as well as facet arthropathy causing moderate to severe spinal canal stenosis and evidence for cord edema as well as impingement both ventrally as well as the dorsal a aspect of the thecal sac. There is severe bilateral neural foraminal stenosis at this level. IMPRESSION: 1. Extensive multilevel degenerative changes. 2. Broad-based disc bulge at C3-C4 as well as facet arthropathy causing moderate to severe spinal canal stenosis and evidence for cord edema as well as impingement both ventrally as well as the dorsal a aspect of the thecal sac. There is severe bilateral neural foraminal stenosis at this level. 3. Broad-based disc bulge at C4-C5 causing mild central spinal canal stenosis and mild bilateral neural foraminal stenosis. 4. Broad-based central disc bulge at C5-C6 causing mild central spinal canal stenosis and mild bilateral neural foraminal stenosis. This document has been electronically signed by: Maty Florence MD on 05/21/2025 21:50:01 Maranda Murillo MD IM MRI PROCEDURES Edited Result - Final * MR Thoracic Spine wo Contrast (05/21/2025 8:55 PM EDT) Anatomical Region Laterality Modality T-spine, Spine Magnetic Resonan ce 05/21/2025 9:48 PM EDT Impressions 05/21/2025 9:48 PM EDT 1. Extensive multilevel degenerative changes. 2. Lesion in T9 vertebrae measuring 1.5 cm high signal on T2 and demonstrates signal dropout on STIR sequences suggestive of a hemangioma. This document has been electronically signed by: Maty Florence MD on 05/21/2025 21:48:20 Narrative 05/21/2025 9:48 PM EDT INDICATION: Myelopathy, acute or progressive MR thoracic spine without gadolinium Comparison: None provided Findings: Normal alignment. No acute fracture or pathologic bone lesion. Thoracic cord normal size and signal. Extensive multilevel degenerative changes. Paraspinous musculature intact. Lesion in T9 vertebrae measuring 1.5 cm high signal on T2 and demonstrates signal dropout on STIR sequences suggestive of a hemangioma. Procedure Note Maty Florence MD - 05/21/2025 INDICATION: Myelopathy, acute or progressive MR thoracic spine without gadolinium Comparison: None provided Findings: Normal alignment. No acute fracture or pathologic bone lesion. Thoracic cord normal size and signal. Extensive multilevel degenerative changes. Paraspinous musculature intact. Lesion in T9 vertebrae measuring 1.5 cm high signal on T2 anddemonstrates signal dropout on STIR sequences suggestive of a hemangioma. IMPRESSION: 1. Extensive multilevel degenerative changes. 2. Lesion in T9 vertebrae measuring 1.5 cm high signal on T2 and demonstrates signal dropout on STIR sequences suggestive of ahemangioma. This document has been electronically signed by: Maty Florence MD on 05/21/2025 21:48:20 Maranda Murillo MD IM MRI PROCEDURES Final Result * MR Lumbar Spine wo Contrast (05/21/2025 8:45 PM EDT) Anatomical Region Laterality Modality L-spine, Spine Magnetic Resonan ce 05/21/2025 9:51 PM EDT Impressions 05/21/2025 9:51 PM EDT 1. Scoliosis of the lumbar spine. 2. Multilevel degenerative changes. 3. Broad-based central disc bulge at L2-L3 with facet arthropathy causing mild central spinal canal stenosis and mild bilateral neural foraminal stenosis. 4. Broad-based central disc bulge at L3-L4 causing mild central spinal canal stenosis and mild bilateral neural foraminal stenosis. 5. Broad-based central disc bulge at L4-L5 with facet arthropathy and hypertrophy of the ligamentum flavum causing moderate spinal canal stenosis and bilateral neural foraminal stenosis. This document has been electronically signed by: Maty Florence MD on 05/21/2025 21:51:54 Narrative 05/21/2025 9:51 PM EDT INDICATION: Myelopathy, acute or progressive MR lumbar spine without gadolinium Comparison: None Findings: Scoliosis of the lumbar spine. No acute fracture or pathologic bone lesion. Cauda equina and conus medullaris within normal limits. Multilevel degenerative changes. Broad-based central disc bulge at L2-L3 with facet arthropathy causing mild central spinal canal stenosis and mild bilateral neural foraminal stenosis. Broad-based central disc bulge at L3-L4 causing mild central spinal canal stenosis and mild bilateral neural foraminal stenosis. Broad-based central disc bulge at L4-L5 with facet arthropathy and hypertrophy of the ligamentum flavum causing moderate spinal canal stenosis and bilateral neural foraminal stenosis. Paraspinous musculature intact. Procedure Note Maty Florence MD - 05/21/2025 INDICATION: Myelopathy, acute or progressive MR lumbar spine without gadolinium Comparison: None Findings: Scoliosis of the lumbar spine. No acute fracture or pathologic bone lesion. Cauda equina and conus medullaris within normal limits. Multilevel degenerative changes. Broad-based central disc bulge at L2-L3 with facet arthropathy causing mild central spinal canal stenosis and mild bilateral neural foraminal stenosis. Broad-based central disc bulge at L3-L4 causing mild central spinalcanal stenosis and mild bilateral neural foraminal stenosis. Broad-based central disc bulge at L4-L5 with facet arthropathy and hypertrophy of the ligamentum flavum causing moderate spinal canal stenosis and bilateral neural foraminal stenosis. Paraspinous musculature intact. IMPRESSION: 1. Scoliosis of the lumbar spine. 2. Multilevel degenerative changes. 3. Broad-based central disc bulge at L2-L3 with facet arthropathycausing mild central spinal canal stenosis and mild bilateral neural foraminal stenosis. 4. Broad-based central disc bulge at L3-L4 causing mild central spinal canal stenosis and mild bilateral neural foraminal stenosis. 5. Broad-based central disc bulge at L4-L5 with facet arthropathy and hypertrophy of the ligamentum flavum causing moderate spinal canal stenosis and bilateral neural foraminal stenosis. This document has been electronically signed by: Maty Florence MD on 05/21/2025 21:51:54 Maranda Murillo MD IMG MRI PROCEDURES Final Result * C-reactive protein (05/21/2025 7:32 PM EDT) [facility] C-Reactive Protein <0.29 <=0.50 mg/dL LAB CHEMISTRY METHOD 05/22/2025 2:13 AM EDT [facility] Blood Venous blood specimen / Unknown Venipuncture / Unknown 05/21/2025 7:32 PM EDT 05/21/2025 7:46 PM EDT Jeanette Ann MD LAB BLOOD ORDERABLES Final Res ult Performing Organization Address [facility]/ZIP Co de Phone Number [facility] [address] [place] [address], [place] [phone] * (ABNORMAL) Creatine kinase (05/21/2025 7:32 PM EDT) [facility] Total CK 270(H) 22 - 269 unit/L LAB CHEMISTRY METHOD 05/21/2025 8:17 PM EDT [facility] Blood Venous blood specimen / Unknown Venipuncture / Unknown 05/21/2025 7:32 PM EDT 05/21/2025 7:46 PM EDT us Maranda Murillo MD LAB BLOOD ORDERABLES Final Resul t Performing Organization Address [facility]/ZIP Co de Phone Number [facility] [address] [place] [address], [place] [phone] * Vascular US Duplex Lower Extremity Venous Bilateral (05/21/2025 7:18 PM EDT) Anatomical Region Laterality Modality Vascular, Abdomen Ultrasound 05/21/2025 7:44 PM EDT Addenda Addendum by Maty Florence MD on 05/21/2025 7:48 PM EDT ADDENDUM: This report was discussed with VENITA CRUZ MD on May 21, 2025 19:48:00 EDT. This document has been electronically signed by: Charisma Oakley on 05/21/2025 19:48:39 Impressions 05/21/2025 7:44 PM EDT 1. No evidence of deep vein thrombosis in the right lower extremity. 2. Occlusive and nonocclusive deep vein thrombosis in the mid left posterior tibial vein and peroneal vein. This document has been electronically signed by: Maty Florence MD on 05/21/2025 19:44:19 Narrative 05/21/2025 7:44 PM EDT INDICATION: edema Venous duplex ultrasound bilateral lower extremity Comparison: None provided Findings: No evidence of deep vein thrombosis in the right lower extremity. Occlusive and nonocclusive deep vein thrombosis in the mid left posterior tibial vein and peroneal vein. No popliteal cyst. Procedure Note Maty Florence MD - 05/21/2025 INDICATION: edema Venous duplex ultrasound bilateral lower extremity Comparison: None provided Findings: No evidence of deep vein thrombosis in the right lower extremity. Occlusive and nonocclusive deep vein thrombosis in the mid leftposterior tibial vein and peroneal vein. No popliteal cyst. IMPRESSION: 1. No evidence of deep vein thrombosis in the right lower extremity. 2. Occlusive and nonocclusive deep vein thrombosis in the mid left posterior tibial vein and peroneal vein. This document has been electronically signed by: Maty Florence MD on 05/21/2025 19:44:19 us Maranda Murillo MD CV VASCULAR PROCEDURES Edited Re sult - Final * XR Chest 1 View (05/21/2025 6:48 PM EDT) Anatomical Region Laterality Modality Body Radiographic Leana ging 05/22/2025 7:12 AM EDT Impressions 05/22/2025 7:15 AM EDT No pneumonia or edema. Broad convex right spinal curvature -------- FINAL REPORT -------- Dictated By: Rasheed Monet Dictated Date: 05/22/2025 07:12 ET Assigned Physician: Rasheed Monet Reviewed and Electronically Signed By: Rasheed Monet Signed Date: 05/22/2025 07:15 ET Workstation ID: [id number] Transcribed By: Self Edit Transcribed Date: 05/22/2025 07:12 ET Narrative 05/22/2025 7:15 AM EDT EXAMINATION: CHEST CLINICAL INFORMATION: Weakness COMPARISON: None. TECHNIQUE: Portable frontal sitting view of the chest FINDINGS: Tortuosity of the aorta. Cardiac size within normal limits. No mediastinal or hilar mass. There is no edema or dense area of consolidation. No significant pleural fluid or pneumothorax. There is moderate convex right spinal curvature. Procedure Note Rasheed Monet, MD - 05/22/2025 EXAMINATION: CHEST CLINICAL INFORMATION: Weakness COMPARISON: None. TECHNIQUE: Portable frontal sitting view of the chest FINDINGS: Tortuosity of the aorta. Cardiac size within normal limits. No mediastinalor hilar mass. There is no edema or dense area of consolidation. No significant pleural fluid or pneumothorax. There is moderate convexright spinal curvature. IMPRESSION: No pneumonia or edema. Broad convex right spinal curvature -------- FINAL REPORT -------- Dictated By: Rasheed Monet Dictated Date: 05/22/2025 07:12 ET Assigned Physician: Rasheed Monet Reviewed and Electronically Signed By: Rasheed Monet Signed Date: 05/22/2025 07:15 ET Workstation ID: [id number] Transcribed By: Self Edit Transcribed Date: 05/22/2025 07:12 ET Maranda Murillo MD IMG XR PROCEDURES Final Result * XR Knee 3 Views Left (04/16/2025 9:45 AM EDT) Anatomical Region Laterality Modality Lower Extremities, Knee Left Computed Radiography 04/16/2025 6:41 PM EDT Impressions 04/16/2025 6:43 PM EDT Degenerative changes, moderately severe at the patellofemoral joint. POS - [id number] -------- FINAL REPORT -------- Dictated By: Nadia Anders Dictated Date: 04/16/2025 18:41 ET Assigned Physician: Nadia Anders Reviewed and Electronically Signed By: Nadia Anders Signed Date: 04/16/2025 18:43 ET Workstation ID: [id number] Transcribed By: Self Edit Transcribed Date: 04/16/2025 18:41 ET Narrative 04/16/2025 6:43 PM EDT EXAM: Left knee x-ray HISTORY: Chronic left knee pain. COMPARISON: None VIEWS: 3 views performed, PA view performed weightbearing. FINDINGS: Moderate to severe joint space narrowing at the patellofemoral joint with mild spurring. Mild joint space narrowing in the medial compartment. No acute fracture or malalignment detected. No destructive bone lesion. No significant joint effusion. Procedure Note Nadia Anders MD - 04/16/2025 EXAM: Left knee x-ray HISTORY: Chronic left knee pain. COMPARISON: None VIEWS: 3 views performed, PA view performed weightbearing. FINDINGS: Moderate to severe joint space narrowing at the patellofemoral joint withmild spurring. Mild joint space narrowing in the medial compartment. Noacute fracture or malalignment detected. No destructive bone lesion. Nosignificant joint effusion. IMPRESSION: Degenerative changes, moderately severe at the patellofemoral joint. POS - [id number] -------- FINAL REPORT -------- Dictated By: Nadia Anders Dictated Date: 04/16/2025 18:41 ET Assigned Physician: Nadia Anders Reviewed and Electronically Signed By: Nadia Anders Signed Date: 04/16/2025 18:43 ET Workstation ID: [id number] Transcribed By: Self Edit Transcribed Date: 04/16/2025 18:41 ET us Monica Euceda MD IMG XR PROCEDURES Final Result * WI ARTHROCENTESIS/ASPIRATION/INJECTION MAJOR JOINT/BURSA W/O U/S GUIDANCE (04/16/2025 9:30 AM EDT) Narrative Monica Euceda MD - 04/16/2025 9:30 AM EDT Monica Euceda MD 04/16/2025 10:14 AM L Inj/Asp: L knee Indications: pain Details: 22 G needle, anterolateral approach Medications: 4 mL lidocaine 1 %; 40 mg triamcinolone acetonide 40 mg/mL Outcome: tolerated well, no immediate complications Informed Consent: Laterality: Left Relevant images/test results available and reviewed: yes Health status cleared: Yes Procedure/treatment, purpose, treatment alternatives, risks/potential complications and benefits explained: yes Risk/complications/benefits details: Risks include bleeding, infection, increase in pain Patient questions answered: yes Patient agrees, verbalizes understanding, and wants to proceed: yes Consent given by: Patient Informed consent discussion completed by Physician/DANYA with patient: Verbal Pre-procedure timeout performed: yes us Monica Euceda MD IN CLINIC/BEDSIDE ORDERABLES F inal Result from Last 3 Months Insurance [employer] Advance Directives * Full Code - Default (Latest Code Status on File) Date Activated Date Inactivated Comments 05/28/2025 3:12 PM 06/09/2025 2:22 PM This is orde r is used when code status has not been discussed with the patient, or code status is otherwise unknown/unconfirmed To update the patient's code status, place a code status order. Do not modify or discontinue any currently active code status orders. * Full Code - Confirmed Date Activated Date Inactivated Comments 05/22/2025 4:13 AM 05/28/2025 2:[address] [facility] was ascertained in the following way: Code status discussion: discussion with patient To update the patient's code status, place a code status order. Do not modify or discontinue any currently active code status orders. Care Teams Building Mechanic Relationship Specialty Start Date End Date Quincy Ma MD [address] [place] [id number] PCP - General 12/02/23
--- OUTSIDE RECORDS SUMMARY | 2025-07-03 15:45 | XMS_ITS ---
Author Name [facility] Organization Unknown Results Test Name/Text Value Interpretation Date Range Source BUN SerPl-mCnc 24.0 mg/dL Above high normal 05/28/2025 9 - 2 0 [facility] Creat SerPl-mCnc 0.3 mg/dL Below low normal 05/28/2025 0.7 - 1.3 [facility] eGFRcr SerPlBld CKD-EPI 2020 132.0 mL/min/1.73m2 05/28/2025 - [facility] Sodium SerPl-sCnc 139.0 mmol/L 05/28/2025 135 - 14 5 [facility] Anion Gap SerPl Calc-sCnc 7.0 05/28/2025 5 - 14 [facility] Chloride SerPl-sCnc 103.0 mmol/L 05/28/2025 98 - 107 [facility] Potassium SerPl-sCnc 3.9 mmol/L 05/28/2025 3.5 - 5.1 [facility] CO2 SerPl-sCnc 29.0 mmol/L 05/28/2025 24 - 32 [facility] BUN/Creat SerPl 80.0 Above high normal 05/28/2025 12 - 20 [facility] Calcium SerPl-mCnc 8.6 mg/dL 05/28/2025 8.4 - 10.2 [facility] Glucose SerPl-mCnc 99.0 mg/dL 05/28/2025 70 - 199 [facility] MCH RBC Qn Auto 34.2 pcg Above high normal 05/28/2025 25 - 33 [facility] Platelet # Bld Auto 191.0 K/mcL 05/28/2025 150 - 450 [facility] Hgb Bld-mCnc 12.3 g/dL Below low normal 05/28/2025 13.5 - 18 [facility] RDW RBC Auto 14.3 % 05/28/2025 12.1 - 17.7 [facility] PMV Bld Auto 7.8 FL 05/28/2025 7.4 - 11.4 [facility] RBC Auto 101.4 FL Above high normal 05/28/2025 78 - 100 C [facility] RBC # Bld Auto 3.58 M/mcL Below low normal 05/28/2025 4.7 - 6 [facility] WBC # Bld Auto 7.7 K/mcL 05/28/2025 4 - 10.5 [facility] Hct VFr Bld Auto 36.3 % Below low normal 05/28/2025 40 - 54 [facility] MCHC RBC Auto-EntMCnc 33.7 g/dL 05/28/2025 32 - 36 [facility] Glucose Bld-mCnc 102.0 mg/dL 05/27/2025 70 - 199 [facility] Sodium SerPl-sCnc 140.0 mmol/L 05/27/2025 135 - 14 5 [facility] Glucose SerPl-mCnc 87.0 mg/dL 05/27/2025 70 - 199 [facility] Potassium SerPl-sCnc 3.2 mmol/L Below low normal 05/27/2025 3.5 - 5.1 [facility] Chloride SerPl-sCnc 104.0 mmol/L 05/27/2025 98 - 107 [facility] Creat SerPl-mCnc 0.4 mg/dL Below low normal 05/27/2025 0.7 - 1.3 [facility] BUN SerPl-mCnc 25.0 mg/dL Above high normal 05/27/2025 9 - 2 0 [facility] Calcium SerPl-mCnc 8.5 mg/dL 05/27/2025 8.4 - 10.2 [facility] BUN/Creat SerPl 62.5 Above high normal 05/27/2025 12 - 20 [facility] Anion Gap SerPl Calc-sCnc 4.0 Below low normal 05/27/2025 5 - 14 [facility] CO2 SerPl-sCnc 32.0 mmol/L 05/27/2025 24 - 32 [facility] eGFRcr SerPlBld CKD-EPI 2020 121.0 mL/min/1.73m2 05/27/2025 - [facility] MCH RBC Qn Auto 34.3 pcg Above high normal 05/27/2025 25 - 33 [facility] RDW RBC Auto 14.3 % 05/27/2025 12.1 - 17.7 [facility] Hct VFr Bld Auto 36.3 % Below low normal 05/27/2025 40 - 54 [facility] MCHC RBC Auto-EntMCnc 34.0 g/dL 05/27/2025 32 - 36 [facility] PMV Bld Auto 7.7 FL 05/27/2025 7.4 - 11.4 [facility] Platelet # Bld Auto 174.0 K/mcL 05/27/2025 150 - 450 [facility] RBC Auto 101.0 FL Above high normal 05/27/2025 78 - 100 C [facility] RBC # Bld Auto 3.6 M/mcL Below low normal 05/27/2025 4.7 - 6 [facility] Hgb Bld-mCnc 12.3 g/dL Below low normal 05/27/2025 13.5 - 18 [facility] WBC # Bld Auto 8.0 K/mcL 05/27/2025 4 - 10.5 [facility] aPTT PPP 29.1 sec 05/26/2025 25 - 37 [facility] N PT Bld 12.6 sec 05/26/2025 10.5 - 13.3 [facility] INR PPP 1.1 05/26/2025 0.8 - 1.1 [facility] N Bilirub SerPl-mCnc 0.7 mg/dL 05/26/2025 0.3 - 1 [facility] Albumin/Glob SerPl 1.8 05/26/2025 [facility] Prot SerPl-mCnc 5.9 g/dL Below low normal 05/26/2025 6.4 - 8.5 [facility] Globulin Ser Calc-mCnc 2.1 g/dL Below low normal 05/26/2025 2.3 - 3.5 [facility] ALP SerPl-cCnc 75.0 unit/L 05/26/2025 34 - 104 [facility] ALT SerPl-cCnc 25.0 unit/L 05/26/2025 7 - 52 [facility] AST SerPl-cCnc 23.0 unit/L 05/26/2025 5 - 40 [facility] Albumin SerPl-mCnc 3.8 g/dL 05/26/2025 3.5 - 5 [facility] Bilirub Direct SerPl-mCnc 0.1 mg/dL 05/26/2025 0 - 0.2 [facility] Anion Gap SerPl Calc-sCnc 6.0 05/26/2025 5 - 14 [facility] eGFRcr SerPlBld CKD-EPI 2020 121.0 mL/min/1.73m2 05/26/2025 - [facility] Sodium SerPl-sCnc 138.0 mmol/L 05/26/2025 135 - 14 5 [facility] Potassium SerPl-sCnc 3.9 mmol/L 05/26/2025 3.5 - 5.1 [facility] Chloride SerPl-sCnc 102.0 mmol/L 05/26/2025 98 - 107 [facility] BUN SerPl-mCnc 29.0 mg/dL Above high normal 05/26/2025 9 - 2 0 [facility] BUN/Creat SerPl 72.5 Above high normal 05/26/2025 12 - 20 [facility] Creat SerPl-mCnc 0.4 mg/dL Below low normal 05/26/2025 0.7 - 1.3 [facility] Calcium SerPl-mCnc 8.8 mg/dL 05/26/2025 8.4 - 10.2 [facility] Glucose SerPl-mCnc 113.0 mg/dL 05/26/2025 70 - 199 [facility] CO2 SerPl-sCnc 30.0 mmol/L 05/26/2025 24 - 32 [facility] PMV Bld Auto 7.7 FL 05/26/2025 7.4 - 11.4 [facility] MCH RBC Qn Auto 34.5 pcg Above high normal 05/26/2025 25 - 33 [facility] Hct VFr Bld Auto 36.9 % Below low normal 05/26/2025 40 - 54 [facility] Platelet # Bld Auto 172.0 K/mcL 05/26/2025 150 - 450 [facility] Hgb Bld-mCnc 12.8 g/dL Below low normal 05/26/2025 13.5 - 18 [facility] RBC # Bld Auto 3.72 M/mcL Below low normal 05/26/2025 4.7 - 6 [facility] RDW RBC Auto 14.4 % 05/26/2025 12.1 - 17.7 [facility] MCHC RBC Auto-EntMCnc 34.8 g/dL 05/26/2025 32 - 36 [facility] WBC # Bld Auto 6.3 K/mcL 05/26/2025 4 - 10.5 [facility] RBC Auto 99.1 FL 05/26/2025 78 - 100 [facility] N Magnesium SerPl-mCnc 2.2 mg/dL 05/25/2025 1.7 - 2.8 [facility] BUN SerPl-mCnc 22.0 mg/dL Above high normal 05/25/2025 9 - 2 0 [facility] Sodium SerPl-sCnc 136.0 mmol/L 05/25/2025 135 - 14 5 [facility] Chloride SerPl-sCnc 98.0 mmol/L 05/25/2025 98 - 107 [facility] Potassium SerPl-sCnc 4.0 mmol/L 05/25/2025 3.5 - 5.1 [facility] Creat SerPl-mCnc 0.4 mg/dL Below low normal 05/25/2025 0.7 - 1.3 [facility] Calcium SerPl-mCnc 8.9 mg/dL 05/25/2025 8.4 - 10.2 [facility] Anion Gap SerPl Calc-sCnc 8.0 05/25/2025 5 - 14 [facility] Glucose SerPl-mCnc 116.0 mg/dL 05/25/2025 70 - 199 [facility] BUN/Creat SerPl 55.0 Above high normal 05/25/2025 12 - 20 [facility] CO2 SerPl-sCnc 30.0 mmol/L 05/25/2025 24 - 32 [facility] eGFRcr SerPlBld CKD-EPI 2020 121.0 mL/min/1.73m2 05/25/2025 - [facility] Platelet # Bld Auto 199.0 K/mcL 05/25/2025 150 - 450 [facility] Hct VFr Bld Auto 39.1 % Below low normal 05/25/2025 40 - 54 [facility] WBC # Bld Auto 8.0 K/mcL 05/25/2025 4 - 10.5 [facility] RDW RBC Auto 14.3 % 05/25/2025 12.1 - 17.7 [facility] PMV Bld Auto 7.6 FL 05/25/2025 7.4 - 11.4 [facility] MCH RBC Qn Auto 34.1 pcg Above high normal 05/25/2025 25 - 33 [facility] RBC Auto 100.7 FL Above high normal 05/25/2025 78 - 100 C [facility] Hgb Bld-mCnc 13.3 g/dL Below low normal 05/25/2025 13.5 - 18 [facility] MCHC RBC Auto-EntMCnc 33.9 g/dL 05/25/2025 32 - 36 [facility] RBC # Bld Auto 3.88 M/mcL Below low normal 05/25/2025 4.7 - 6 [facility] BUN/Creat SerPl 55.0 Above high normal 05/24/2025 12 - 20 [facility] Chloride SerPl-sCnc 98.0 mmol/L 05/24/2025 98 - 107 [facility] Glucose SerPl-mCnc 112.0 mg/dL 05/24/2025 70 - 199 [facility] Sodium SerPl-sCnc 134.0 mmol/L Below low normal 05/24/2025 1 35 - 145 [facility] Creat SerPl-mCnc 0.4 mg/dL Below low normal 05/24/2025 0.7 - 1.3 [facility] Anion Gap SerPl Calc-sCnc 7.0 05/24/2025 5 - 14 [facility] Calcium SerPl-mCnc 8.4 mg/dL 05/24/2025 8.4 - 10.2 [facility] eGFRcr SerPlBld CKD-EPI 2020 121.0 mL/min/1.73m2 05/24/2025 - [facility] BUN SerPl-mCnc 22.0 mg/dL Above high normal 05/24/2025 9 - 2 0 [facility] CO2 SerPl-sCnc 29.0 mmol/L 05/24/2025 24 - 32 [facility] Potassium SerPl-sCnc 4.2 mmol/L 05/24/2025 3.5 - 5.1 [facility] AST SerPl-cCnc 22.0 unit/L 05/24/2025 5 - 40 [facility] Bilirub Direct SerPl-mCnc 0.1 mg/dL 05/24/2025 0 - 0.2 [facility] Prot SerPl-mCnc 6.1 g/dL Below low normal 05/24/2025 6.4 - 8.5 [facility] ALT SerPl-cCnc 13.0 unit/L 05/24/2025 7 - 52 [facility] Albumin/Glob SerPl 1.7 05/24/2025 [facility] Bilirub SerPl-mCnc 0.5 mg/dL 05/24/2025 0.3 - 1 [facility] Albumin SerPl-mCnc 3.8 g/dL 05/24/2025 3.5 - 5 [facility] ALP SerPl-cCnc 76.0 unit/L 05/24/2025 34 - 104 [facility] Globulin Ser Calc-mCnc 2.3 g/dL 05/24/2025 2.3 - 3.5 [facility] Magnesium SerPl-mCnc 1.9 mg/dL 05/24/2025 1.7 - 2.8 [facility] RBC # Bld Auto 3.83 M/mcL Below low normal 05/24/2025 4.7 - 6 [facility] Hgb Bld-mCnc 13.2 g/dL Below low normal 05/24/2025 13.5 - 18 [facility] Platelet # Bld Auto 195.0 K/mcL 05/24/2025 150 - 450 [facility] MCHC RBC Auto-EntMCnc 34.8 g/dL 05/24/2025 32 - 36 [facility] RBC Auto 98.7 FL 05/24/2025 78 - 100 [facility] Hct VFr Bld Auto 37.9 % Below low normal 05/24/2025 40 - 54 [facility] PMV Bld Auto 7.4 FL 05/24/2025 7.4 - 11.4 [facility] WBC # Bld Auto 8.9 K/mcL 05/24/2025 4 - 10.5 [facility] RDW RBC Auto 14.2 % 05/24/2025 12.1 - 17.7 [facility] MCH RBC Qn Auto 34.3 pcg Above high normal 05/24/2025 25 - 33 [facility] Rh Bld Positive 05/23/2025 [facility] N ABO Group Bld O 05/23/2025 [facility] Bld gp Ab Scn SerPl Ql Negative 05/23/2025 [facility] Rh Bld Positive 05/23/2025 [facility] ABO Group Bld O 05/23/2025 [facility] Magnesium SerPl-mCnc 1.9 mg/dL 05/23/2025 1.7 - 2.8 [facility] Sodium SerPl-sCnc 132.0 mmol/L Below low normal 05/23/2025 1 35 - 145 [facility] eGFRcr SerPlBld CKD-EPI 2020 121.0 mL/min/1.73m2 05/23/2025 - [facility] CO2 SerPl-sCnc 25.0 mmol/L 05/23/2025 24 - 32 [facility] Creat SerPl-mCnc 0.4 mg/dL Below low normal 05/23/2025 0.7 - 1.3 [facility] BUN SerPl-mCnc 23.0 mg/dL Above high normal 05/23/2025 9 - 2 0 [facility] BUN/Creat SerPl 57.5 Above high normal 05/23/2025 12 - 20 [facility] Glucose SerPl-mCnc 118.0 mg/dL 05/23/2025 70 - 199 [facility] Chloride SerPl-sCnc 98.0 mmol/L 05/23/2025 98 - 107 [facility] Anion Gap SerPl Calc-sCnc 9.0 05/23/2025 5 - 14 [facility] Potassium SerPl-sCnc 4.3 mmol/L 05/23/2025 3.5 - 5.1 [facility] Calcium SerPl-mCnc 9.1 mg/dL 05/23/2025 8.4 - 10.2 [facility] RDW RBC Auto 14.1 % 05/23/2025 12.1 - 17.7 [facility] WBC # Bld Auto 5.3 K/mcL 05/23/2025 4 - 10.5 [facility] Platelet # Bld Auto 231.0 K/mcL 05/23/2025 150 - 450 [facility] RBC # Bld Auto 3.93 M/mcL Below low normal 05/23/2025 4.7 - 6 [facility] PMV Bld Auto 7.6 FL 05/23/2025 7.4 - 11.4 [facility] Hct VFr Bld Auto 39.3 % Below low normal 05/23/2025 40 - 54 [facility] MCH RBC Qn Auto 33.4 pcg Above high normal 05/23/2025 25 - 33 [facility] MCHC RBC Auto-EntMCnc 33.4 g/dL 05/23/2025 32 - 36 [facility] Hgb Bld-mCnc 13.1 g/dL Below low normal 05/23/2025 13.5 - 18 [facility] RBC Auto 99.9 FL 05/23/2025 78 - 100 [facility] Anion Gap SerPl Calc-sCnc 7.0 05/23/2025 5 - 14 [facility] Chloride SerPl-sCnc 98.0 mmol/L 05/23/2025 98 - 107 [facility] BUN SerPl-mCnc 23.0 mg/dL Above high normal 05/23/2025 9 - 2 0 [facility] Potassium SerPl-sCnc 4.2 mmol/L 05/23/2025 3.5 - 5.1 [facility] Creat SerPl-mCnc 0.4 mg/dL Below low normal 05/23/2025 0.7 - 1.3 [facility] CO2 SerPl-sCnc 26.0 mmol/L 05/23/2025 24 - 32 CT [facility] Calcium SerPl-mCnc 9.1 mg/dL 05/23/2025 8.4 - 10.2 [facility] BUN/Creat SerPl 57.5 Above high normal 05/23/2025 12 - 20 [facility] eGFRcr SerPlBld CKD-EPI 2020 121.0 mL/min/1.73m2 05/23/2025 - [facility] Glucose SerPl-mCnc 116.0 mg/dL 05/23/2025 70 - 199 [facility] Sodium SerPl-sCnc 131.0 mmol/L Below low normal 05/23/2025 1 35 - 145 [facility] Magnesium SerPl-mCnc 2.0 mg/dL 05/23/2025 1.7 - 2.8 [facility] RBC # Bld Auto 3.96 M/mcL Below low normal 05/23/2025 4.7 - 6 [facility] PMV Bld Auto 7.4 FL 05/23/2025 7.4 - 11.4 [facility] Hgb Bld-mCnc 13.5 g/dL 05/23/2025 13.5 - 18 [facility] RBC Auto 99.0 FL 05/23/2025 78 - 100 [facility] WBC # Bld Auto 4.5 K/mcL 05/23/2025 4 - 10.5 [facility] Platelet # Bld Auto 211.0 K/mcL 05/23/2025 150 - 450 [facility] MCHC RBC Auto-EntMCnc 34.5 g/dL 05/23/2025 32 - 36 [facility] MCH RBC Qn Auto 34.2 pcg Above high normal 05/23/2025 25 - 33 [facility] Hct VFr Bld Auto 39.2 % Below low normal 05/23/2025 40 - 54 [facility] RDW RBC Auto 14.3 % 05/23/2025 12.1 - 17.7 [facility] Heparin Anti Xa Fld.NB-aCnc 0.6 I Unit/mL 05/23/2025 [facility] Heparin Anti Xa Fld.NB-aCnc 0.06 I Unit/mL 05/22/2025 [facility] PL7 Ab Ser Ql Negative 06/17/2025 - [facility] MDA5 Ab Ser Line blot-aCnc <20 06/17/2025 - [facility] Fibrillarin Ab Ser Ql Negative 06/17/2025 - [facility] SRP Ab SerPl Ql Negative 06/17/2025 - [facility] DEREK Jo1 Ab Ser IA-aCnc <20 06/17/2025 - [facility] U1 snRNP Ab Ser IA-aCnc <20 06/17/2025 - [facility] Ku Ab Ser Ql Negative 06/17/2025 - [facility] U2 snRNP Ab Ser Ql Negative 06/17/2025 - [facility] OJ Ab Ser Ql Negative 06/17/2025 - [facility] MI2 Ab Ser Ql Negative 06/17/2025 - [facility] Mj Ab Ser Line blot-aCnc <20 06/17/2025 - 20 [facility] DEREK SS-A 52kD Ab Ser IA-aCnc <20 06/17/2025 - [facility] PM/SCL-100 IgG Ser-aCnc <20 06/17/2025 - [facility] TIF1-gamma Ab Ser Line blot-aCnc <20 06/17/2025 - 20 [facility] PL12 Ab Ser Ql Negative 06/17/2025 - [facility] Ej Ab Ser Ql Negative 06/17/2025 - [facility] TSH SerPl DL<=0.005 mIU/L-aCnc 2.56 mcIU/mL 05/22/2025 0.45 - 5.33 [facility] eGFRcr SerPlBld CKD-EPI 2020 121.0 mL/min/1.73m2 05/22/2025 - [facility] Glucose SerPl-mCnc 87.0 mg/dL 05/22/2025 70 - 199 [facility] BUN SerPl-mCnc 15.0 mg/dL 05/22/2025 9 - 20 [facility] Sodium SerPl-sCnc 131.0 mmol/L Below low normal 05/22/2025 1 35 - 145 [facility] BUN/Creat SerPl 37.5 Above high normal 05/22/2025 12 - 20 [facility] Anion Gap SerPl Calc-sCnc 9.0 05/22/2025 5 - 14 [facility] Potassium SerPl-sCnc 4.2 mmol/L 05/22/2025 3.5 - 5.1 [facility] CO2 SerPl-sCnc 26.0 mmol/L 05/22/2025 24 - 32 [facility] Chloride SerPl-sCnc 96.0 mmol/L Below low normal 05/22/2025 98 - 107 [facility] Creat SerPl-mCnc 0.4 mg/dL Below low normal 05/22/2025 0.7 - 1.3 [facility] Calcium SerPl-mCnc 8.9 mg/dL 05/22/2025 8.4 - 10.2 [facility] History of Medication Use Medication Directions Dispensed Refills Start Date End Date [facility] apixaban (ELIQUIS) 5 mg tablet Take 2 tablets (10 mg total) by mouth 2 (two) times a day for 4 days, THEN 1 tablet (5 mg total) 2 (two) times a day. 05/28/2025 active dexAMETHasone (DECADRON) 1 mg tablet Take 4 tablets (4 mg total) by mouth every 12 (twelve) hours for 1 day, THEN 4 tablets (4 mg total) 1 (one) time each day for 1 day, THEN 2 tablets (2 mg total) 1 (one) time each day for 1 day, THEN 1 tablet (1 mg total) 1 (one) time each day for 1 day. 05/28/2025 active dexAMETHasone (DECADRON) tablet 4 mg [Order 1 Start] Name: dexAMETHasone (DECADRON) tablet 4 mg Signed Summary: 4 mg, oral, Every 12 hours scheduled, First dose on Sat05/27/25 at 0900, For 2 days [Order 1 End] [Order 2 Start] Name: dexAMETHasone (DECADRON) tablet 4 mg Signed Summary: 4 mg, oral, Every 24 hours scheduled, First dose on 05/27/2025 5 active barium sulfate (VARIBAR PUDDING) 40 % (w/v), 30% (w/w) oral paste 15 mL 15 mL, oral, Once in imaging, Starting on Sat05/27/25 at 1131, For 1 dose, Administer with oral syringe or spoon. Max cumulative dose of 30 mL. Discard any unused product 21 days after tube opened. 05/27/2025 5 completed polyvinyl alcohol-povidone (ARTIFICIAL TEARS) 0.5-0.6 % opthalmic solution 1 drop 1 drop, Both Eyes, Every 4 hours PRN, dry eyes, Starting on Sat05/26/25 at 201005/27/2025 active dextrose 5 % lactated ringers infusion 75 mL/hr, intravenous, Continuous, Starting on Sat05/26/25 at 1330, For 12 hours 05/26/2025 5 completed apixaban (ELIQUIS) tablet 10 mg 10 mg, oral, 2 times daily, First dose (after last modification) on Sat05/26/25 at 1230, For 7 days, Indication: VTE/PE Treatment 05/26/2025 active bisacodyL (DULCOLAX) 5 mg EC tablet Take 2 tablets (10 mg total) by mouth 1 (one) time each day. Do not crush, chew, or split. 05/25/2025 active barium sulfate (VARIBAR THIN LIQUID) 40% (w/v), 81% (w/w) suspension 60 mL 60 mL, oral, Once in imaging, Starting on Kerrie 05/27/25 at 1131, For 1 dose 05/24/2025 5 completed dextrose 5 % lactated ringers infusion 50 mL/hr, intravenous, Continuous, Starting on 05/25/25 at 1600, For 24 hours 05/24/2025 5 completed barium sulfate (VARIBAR PUDDING) 40 % (w/v), 30% (w/w) oral paste 20 mL 20 mL, oral, Once in imaging, Starting on 05/24/25 at 1134, For 1 dose, Administer with oral syringe or spoon. Max cumulative dose of 30 mL. Discard any unused product 21 days after tube opened. 05/24/2025 5 completed ceFAZolin (ANCEF) 2 g in sterile water 20 mL IV syringe 2 g, intravenous, Administer over 3 Minutes, Once, On Sat05/23/25 at 1630, For 1 dose, Preprocedure, -IV Push over 3 minutes -Administer within 60 minutes of incision, Indication: Prophylaxis-Surgic al 05/23/2025 5 completed tamsulosin (FLOMAX) 24 hr capsule 0.4 mg 0.4 mg, oral, Once, On 05/23/25 at 1630, For 1 dose, Preprocedure, GIVE WITH PRE-OP MEDS For oral administration: capsules should be swallowed whole (Do not crush, chew, or open). For tube administration: open capsule and administer with water (granules should NOT be crushed). 05/23/2025 5 completed gabapentin (NEURONTIN) 300 mg capsule Take 1 capsule (300 mg total) by mouth every 8 (eight) hours. 05/23/2025 active polyethylene glycol (MIRALAX) packet 17 g 17 g, oral, Daily, First dose on 05/23/25 at 0900 05/23/2025 active senna-docusate (PERICOLACE) 8.6-50 mg per tablet Take 1 tablet by mouth at bedtime. 05/23/2025 active dexAMETHasone (DECADRON) injection 4 mg 4 mg, intravenous, Every 6 hours scheduled, First dose on Sat05/22/25 at 0645 05/22/2025 5 aborted acetaminophen (TYLENOL) tablet 975 mg 975 mg, oral, User specified (3 times per day), First dose (after last modification) on Sat05/24/25 at 1400 05/22/2025 5 active gabapentin (NEURONTIN) capsule 200 mg 200 mg, oral, Every 8 hours scheduled, First dose on Sat05/22/25 at 0845 05/22/2025 5 aborted acetaminophen (TYLENOL) tablet 1,000 mg 1,000 mg, oral, Once, On Sat05/23/25 at 1630, For 1 dose, Preprocedure, Give 1 hour prior to surgery 05/22/2025 5 completed HYDROmorphone (DILAUDID) injection 0.5 mg 0.5 mg, intravenous, Every 6 hours PRN, severe pain, Starting on Sat05/24/25 at 0407 05/22/2025 5 active methocarbamoL (ROBAXIN) tablet 500 mg 500 mg, oral, 3 times daily PRN, muscle spasms, Starting on Sat05/22/25 at 0910 05/22/2025 active oxyCODONE (ROXICODONE) 5 mg immediate release tablet Take 1 tablet (5 mg total) by mouth every 4 (four) hours if needed for moderate pain for up to 5 days. Max Daily Amount: 30 mg 05/22/2025 active pantoprazole (PROTONIX) 40 mg EC tablet Take 1 tablet (40 mg total) by mouth 1 (one) time each day before breakfast. Do not crush, chew, or split. 05/22/2025 active sodium chloride 0.9 % flush 10 mL [Order 1 Start] Name: Insert peripheral IV Signed Summary: STAT, Once, On 05/23/25 at 1604, For 1 occurrence, Preprocedure [Order 1 End] [Order 2 Start] Name: Maintain IV access Signed Summary: Until discontinued, Starting on 05/23/25 at 1604, Until Specified, Preprocedure [Order 2 End] [Order 05/22/2025 active ergocalciferol (VITAMIN D-2) 1,250 mcg (50,000 unit) capsule TAKE 1 CAPSULE BY MOUTH ONCE A WEEK FOR 84 DAYS 02/21/2025 active ergocalciferol (VITAMIN D-2) 1,250 mcg (50,000 unit) capsule Take 1 capsule (50,000 Units total) by mouth 1 (one) time per week. 02/21/2025 suspended irbesartan (AVAPRO) 300 mg tablet Take 1 tablet (300 mg total) by mouth 1 (one) time each day. for 90 days 02/19/2025 aborted acetaminophen (TYLENOL 8 HOUR) 650 mg 8 hr tablet Take 2 tablets (1,300 mg total) by mouth every 8 (eight) hours if needed. 01/12/2025 active meloxicam (MOBIC) 15 mg tablet Take 1 tablet (15 mg total) by mouth 1 (one) time each day. aborted NIFEdipine (ADALAT CC) 30 mg 24 hr tablet take 1 tablet by mouth every day on empty stomach aborted No known medications No known medications active Allergies Allergen Reaction Severity Comment Documented Date Source Statu s LISINOPRIL COUGH 04/16/2025 [facility] active Problems Problem Status Onset Date Problem Type Date of Resolution Source DVT (deep venous thrombosis) ([facility] V24, [facility] V28) active 2025-05-22 ProblemAct [facility] Cervical myelopathy ([facility] V24, [facility] V28) active 2025-05-28 ProblemAct [facility] Primary osteoarthritis of left hip active 2025-04-19 ProblemAct [facility] Muscle weakness of extremity active 2025-05-22 ProblemAct [facility] Hyponatremia active 2025-05-22 ProblemAct [facility] Constipation active 2025-05-25 ProblemAct [facility] Spinal stenosis, multiple sites in spine active 2025-05-22 ProblemAct [facility] Edema of spinal cord ([facility] V24, [facility] V28) active 2025-05-22 ProblemAct [facility] Odynophagia active 2025-05-24 ProblemAct [facility] TANESHA HTN (hypertension) active 2024-03-31 ProblemAct [facility] Hemangioma active 2025-05-22 ProblemAct [facility] RAN Status post cervical spinal fusion active EncounterDiagnosisAct [facility] SFRAN HTN (hypertension) active 2024-03-31 ProblemAct [facility] Spinal stenosis, multiple sites in spine active 2025-05-22 ProblemAct [facility] Odynophagia active 2025-05-24 ProblemAct [facility] TANESHA Hemangioma active 2025-05-22 ProblemAct [facility] RAN Constipation active 2025-05-25 ProblemAct [facility] SFR[facility] Muscle weakness of extremity active 2025-05-22 ProblemAct [facility] Primary osteoarthritis of left hip active 2025-04-19 ProblemAct [facility] Hyponatremia active 2025-05-22 ProblemAct [facility] Cervical myelopathy ([facility] V24, [facility] V28) active 2025-05-28 ProblemAct [facility] DVT (deep venous thrombosis) ([facility] V24, [facility] V28) active 2025-05-22 ProblemAct [facility] Edema of spinal cord ([facility] V24, [facility] V28) active 2025-05-22 ProblemAct [facility] Encounters Encounter Type Encounter Reason Primary Diagnosis Location Date Ambulatory [facility] 06/08/2025 Inpatient Weakness Acute embolism a nd thrombosis of left peroneal vein ([facility] V24, [facility] V28) [facility] 05/22/2025 Care Team Organization Name Specialty Phone Email Start Date End Da te [facility] 06/08/2025 [facility] 05/22/2025 [facility] 05/22/2025
--- OUTSIDE RECORDS SUMMARY | 2025-07-03 15:45 | XMS_ITS | Patient Health Record ---
Author Organization [facility] Address [address] [place] [address] Care Team Providers Care Grey Inspector Name Role Phone Shannenricki Quincy Primary Care Provider Unavailsilvana Rubin, Mayuri Unavailable [phone] Reason For Referral No Information Encounters Encounter Location Date Provider Diagnosis [facility] [address] [place] [address] 05/17/2025 Mayuri Rubin Plan Of Treatment No Information Insurance Providers Payer Name Payer Address Payer Phone Subscriber Number Group Number Insured Name Patient Relationship to Insured Coverage Start Date Coverage End Date [employer] [place] [employer] [address] [place] [address] [id number] Albaro Reynoso Self - patient is the insured
--- OUTSIDE RECORDS SUMMARY | 2025-07-03 15:45 | XMS_ITS | Patient Health Record ---
Author Organization [facility] Address [address] [place] [address] Care Team Providers Care Junior Architect Name Role Phone Kiah DEWEY, Ron Primary Care Provider Un available Joby Rios Unavailable [phone] Reason For Referral No Information Plan Of Treatment No Information Insurance Providers Payer Name Payer Address Payer Phone Subscriber Number Group Number Insured Name Patient Relationship to Insured Coverage Start Date Coverage End Date [facility] [address] [place] [phone] [id number] ELEANOR ANTOINE Self - patient is the insured Medical (General) History Medical History History ICD Code colonosocpy 08-14-2010 Denies HI,DM,CVA,Lung disease,renal dise ase
[2025-07-03 16:23] LABS: MANUAL DIFF FLAG NO
[2025-07-03 16:25] LABS: Hematocrit 35.4 % (42.0-52.0); Hemoglobin 12.6 g/dl (14.0-18.0); Imm Gran Abs Auto 0.01 X10*3/uL (0.00-0.03); Imm Gran Pct Auto 0.3 % (0.0-0.4); Lymphocytes Absolute Auto 1.1 X10*3/uL (1.2-4.9); Mean Corpuscular HGB Conc 35.6 g/dl (31.0-36.0); Mean Corpuscular Hemoglobin 33.9 pg (27.0-33.0); Mean Corpuscular Volume 95.2 fL (80.0-98.0); NRBC Abs Auto 0.000 X10*3/uL (0.0-0.012); NRBC Pct Auto 0.0 /100WBC (0.0-0.2); Platelet Count 214 X10*3/uL (160-400); Red Blood Count 3.72 X10*6/uL (4.60-5.80); White Blood Count 3.7 X10*3/uL (4.8-10.8)
[2025-07-03 16:39] LABS: Alanine Aminotransferase 17 U/L (0-40); Albumin Level 4.1 g/dL (3.5-5.0); Alkaline Phosphatase 98 U/L (39-117); Anion Gap 11 (12-20); Aspartate Amino Transferase 17 U/L (5-37); Blood Urea Nitrogen 8 mg/dL (9-16); Calcium 9.0 mg/dL (8.4-10.2); Carbon Dioxide 26 mmol/L (22-29); Chloride 90 mmol/L (96-108); Creatinine Clr Calc Pharmacy 126.2; Estimated Glomerular Filt Rate > 60; Magnesium 2.0 mg/dL (1.6-2.6); Potassium 4.5 mmol/L (3.3-5.1); Sodium 122 mmol/L (135-145); Total Protein 6.2 g/dL (6.5-8.0)
--- NOTE | 2025-07-03 16:45 | ECG_ITS ---
Test Reason : Hyponaturemia Blood Pressure : */* mmHG Vent. Rate : 62 BPM Atrial Rate : 62 BPM P-R Int : 198 ms QRS Dur : 108 ms QT Int : 392 ms P-R-T Axes : 64 1 68 degrees QTcB Int : 397 ms Normal sinus rhythm Normal ECG When compared with ECG of 30-Mar-2013 10:26, Questionable change in QRS axis Referred By: Goldie Juarez Electronically Signed By: IAN GUARDADO
[2025-07-03 16:48] LABS: Troponin-I High Sensitivity < 2.7 ng/L (<3.5-35.0)
--- NOTE | 2025-07-03 16:55 | PM.IMHP ---
History of Present Illness Date of Service: 07/03/25 Attending physician on admission: Rey Mancilla Chief Complaint: weakness, pain This is a 64 male who presents to the emergency department with left leg pain and weakness. He reportedly had a cervical fusion at [place] at the end of May. At that time he had bilateral lower extremity weakness. Following surgery he had ongoing left-sided weakness which improved somewhat when he went to physical therapy following discharge. He has not yet regained strength in his left side has been primarily weight-bearing on his right. He has had ongoing tingling in his feet. And he is having pain, says he was not discharged from rehab with any pain medication. Cervical spine imaging and brain CT pending at this time. Lab work was significant for hyponatremia with a sodium of 122. Patient denies any previous history of hyponatremia. He denies taking hydrochlorothiazide any longer, only taking irbesartan. He will be admitted to the hospital for further management Review of Systems Review of Systems: Yes all other systems are reviewed and are negative Constitutional: Constitutional: Denies chills and Denies fever(s) Cardiovascular: Cardiovascular: Denies chest pain, Denies palpitations and Denies dyspnea Respiratory: Respiratory: Denies cough and Denies dyspnea Gastrointestinal: Gastrointestinal: Denies abdominal pain, Denies diarrhea, Denies nausea and Denies vomiting Endocrine: Endocrine: Denies palpitations [facility] Medical History (Updated 07/03/25 @ 16:59 by Goldie Juarez DO) HTN (hypertension) Surgical History (Updated 07/03/25 @ 16:57 by Goldie Juarez DO) S/P cervical spinal fusion Social History Alcohol intake: former Smoked in Last 30 Days: No Use of substances other than those prescribed or required for medical reasons: No Advance Directives: No Advance Directives Information Provided: Yes Meds Allergies Allergy/AdvReac Type Severity Reaction Status Date / Time No Known Allergies (No Known Allergy Unverified 07/03/25 15:29 Allergies*) Active Medications: Current Medications Sodium Chloride (Ns) 1,000 mls @ 75 mls/hr IVCONT .[id number] TORITO Oxycodone HCl (Oxycodone Hcl Immed Release 5 Mg Tablet) 5 mg PO Q6H PRN PRN Reason: Pain, Moderate(Pain Scale 4-6) Home Medications ?Medication ?Instructions ?Recorded ?Confirmed ?Last Taken ?Type acetaminophen 650 mg 1,300 mg PO Q8H PRN Pain 07/03/25 07/03/25 07/03/25 History tablet,extended release apixaban 5 mg tablet (Eliquis) 5 mg PO BID 07/03/25 07/03/25 07/03/25 09:00 History ergocalciferol (vitamin D2) 1,250 1,250 mcg PO TU 07/03/25 07/03/25 06/29/25 History mcg (50,000 unit) capsule gabapentin 300 mg capsule 300 mg PO TID 07/03/25 07/03/25 07/03/25 History irbesartan 300 mg tablet 300 mg PO DAILY 07/03/25 07/03/25 07/03/25 History Physical Exam Vital Signs and Narrative: Vital Signs: Last Vital Signs Temp 98.1 F 07/03/25 15:28 Pulse 74 07/03/25 15:28 Resp 18 07/03/25 15:28 BP 166/79 H 07/03/25 15:28 Pulse Ox 99 07/03/25 15:28 O2 Del Method Room Air 07/03/25 15:28 BMI result Body Mass Index 21.1 Const: Other: tired appearing General: cooperative, alert and awake Nutritional Appearance: average body habitus Orientation/consciousness: patient oriented x3 Resp: Effort & Inspection: normal respiratory effort, able to speak in complete sentences, no respiratory distress and no use of accessory muscles Cardio: Rate: regular rate GI: Inspection: No distended Palpation (GI): Soft to palpation and nontender Neuro: General: patient oriented x3 and moves all extremities Extrem: Other: b/l nonpitting leg edema Results Labs 07/03/25 16:04 07/03/25 16:04 Labs: Laboratory Results - last 24 hr 07/03/25 07/03/25 16:04 16:05 MCV 95.2 MCH 33.9 H MCHC 35.6 RDW 13.7 Plt Count 214 MPV 8.5 L Immature Gran % (Auto) 0.3 Neut % (Auto) 57.6 Lymph % (Auto) 29.8 [place] % (Auto) 11.5 H Eos % (Auto) 0.3 Baso % (Auto) 0.5 Lymph # (Auto) 1.1 L [place] # (Auto) 0.4 Eos # (Auto) 0.0 Baso # (Auto) 0.0 Abs Immat Gran (auto) 0.01 Absolute Neuts (auto) 2.2 Absolute Nucleated RBC 0.000 Nucleated RBC % (auto) 0.0 Hold Purple Top SEE NOTE Hold Blue Top SEE NOTE Anion Gap 11 L Estim Creat Clear Calc 126.2 Estimated GFR > 60 Random Glucose 84 Calcium 9.0 Magnesium 2.0 Total Bilirubin 0.6 AST 17 ALT 17 Alkaline Phosphatase 98 Troponin I High Sens < 2.7 Total Protein 6.2 L Albumin 4.1 Assessment and Plan (1) Acute hyponatremia: Status: Acute Plan This is a 64-year-old male with history of recent cervical spinal fusion who presents to the emergency department with ongoing pain and weakness found to have hyponatremia Acute hyponatremia Denies previous history of hyponatremia ? SIADH in the setting of back pain d/w nephrology - will give 30 gm urea and 2gm sodium chloride now and recheck sodium levels in am urine studies pending pt reports no longer on thiazide weakness/chronic back pain s/p cervical spinal fusion no bladder/bowel incontinence, no saddle anesthesia attempting to obtain records from [facility] [place] [facility] where surgery was performed PT evaluation Pain control continue baseline gabapentin HTN irbesartan converted to formulary equivalent valsartan h/o DVT continue eliquis dvt ppx - eliquis Patient will likely require 2 midnight stay in the hospital for management of severe hyponatremia requiring close monitoring and specialist evaluation as well as PT evaluation for safe disposition Quality Stroke Does the patient have a stroke diagnosis?: No VTE Prior VTE?: No VTE Risk Level:: Medical - low VTE Device Contraindication: N/A - Device Ordered VTE Drug Contraindication: N/A - Med Ordered
--- NOTE | 2025-07-03 16:56 | ED.WEAKNESS ---
HPI - Weakness General Chief complaint: General Medical Stated complaint: L side pain since spinal fusion procedure Time Seen by Provider: 07/03/25 16:01 Source: patient and EMS Mode of arrival: EMS Limitations: no limitations History of Present Illness ED Provider: GRACIELA SOLORZANO Narrative: 64 yo male with PMH of HTN on irbesartan he denies any other new medications. He just had cervical fusion at [place] on 05/23 he notes at that time both LE we were weak but he has recovered his R leg he went to [facility] rehab until 06/10 and was sent home. Since surgery he hasn't regained his strength in his left leg. He notes he gets tingling and pain. He uses his R leg mostly. He came today as he felt weak. He denies fevers, chest pain, dyspnea, cough, n/v/d. He states he doesn't eat that well. He came to our ED today asking to go back to rehab. He denies any new injury or falls. MD Complaint: generalized weakness Onset (ago): month(s) (1+) Duration: progressively worsening Location: generalized Migration: none Severity: moderate Relieving factors: rest Exacerbating factors: movement Context: recent surgery Associated symptoms: loss of appetite Related Data Home Medications ?Medication ?Instructions ?Recorded ?Confirmed acetaminophen 650 mg 1,300 mg PO Q8H PRN Pain 07/03/25 tablet,extended release apixaban 5 mg tablet (Eliquis) 5 mg PO BID 07/03/25 celecoxib 200 mg capsule 200 mg PO BID 07/03/25 ergocalciferol (vitamin D2) 1,250 1,250 mcg PO QWEEK 07/03/25 mcg (50,000 unit) capsule gabapentin 300 mg capsule 300 mg PO Q8H 07/03/25 irbesartan 300 mg tablet 300 mg PO DAILY 07/03/25 nifedipine 30 mg tablet,extended 30 mg PO DAILY 07/03/25 release oxycodone 5 mg tablet 5 mg PO Q4H PRN moderate pain 07/03/25 sennosides 8.6 mg tablet (senna) 17.2 mg PO BEDTIME 07/03/25 Allergies Allergy/AdvReac Type Severity Reaction Status Date / Time No Known Allergies (No Known Allergy Unverified 07/03/25 15:29 Allergies*) Review of Systems Review of Systems: Constitutional : No Fever, No Chills, No Fatigue ENT/Mouth : No sore throat, No Rhinorrhea Eyes: No Eye Pain, No Swelling, No Redness Cardiovascular : No Chest Pain, No SOB, No Dyspnea on Exertion Respiratory : No Cough, No Sputum Gastrointestinal : No Nausea, No Vomiting, No Diarrhea, No abdominal Pain Genitourinary : No Dysuria, No Urinary Frequency, No Hematuria, Musculoskeletal : pos joint pain, No Myalgias, No Joint Swelling Skin : No Skin Lesions, No rash Neuro : pos Weakness, No Numbness, No Dizziness, no Headache All other systems reviewed and are negative [facility] Past Medical History Attestation statement: The following information was validated with the patient. Medical History (Updated 07/03/25 @ 16:59 by Goldie Juarez DO) HTN (hypertension) Surgical History (Updated 07/03/25 @ 16:57 by Goldie Juarez DO) S/P cervical spinal fusion Social History Social History Alcohol intake: former Smoked in Last 30 Days: No Use of substances other than those prescribed or required for medical reasons: No Advance Directives: No Advance Directives Information Provided: Yes Physical Exam Vital Signs: Vital Signs: Last Vital Signs Temp 98.1 F 07/03/25 17:32 Pulse 61 07/03/25 17:32 Resp 18 07/03/25 17:32 BP 135/68 07/03/25 17:32 Pulse Ox 97 07/03/25 17:32 O2 Del Method Room Air 07/03/25 17:32 BMI result Body Mass Index 21.1 Appearance: Alert. Oriented X3. No acute distress. Eyes: Pupils equal, round and reactive to light. ENT: Pharynx mildy dry MM Neck: Normal inspection. Neck supple. CVS: Normal heart rate and rhythm. Pulses normal. Respiratory: No respiratory distress. Breath sounds normal. Abdomen: Soft and nontender. Skin: Skin warm and dry. pale skin color. Normal skin turgor. Extremities: No lower extremity edema. No calf ttp Neuro: Oriented X 3. No motor deficit. No sensory deficit. he has intact pulses both legs he has SILT intact on exam, he has 2+ DTR in patella and achilles. He has some scant diminished strength left leg but his is not new since his surgery Medications Administered Generic Name Dose Route Start Last Admin Trade Name Freq PRN Reason Stop Dose Admin Sodium Chloride 1,000 mls @ 75 mls/hr 07/03/25 17:00 07/03/25 16:56 Ns IVCONT 75 mls/hr .[id number] TORITO Administration Oxycodone HCl 5 mg 07/03/25 16:30 07/03/25 16:58 Oxycodone Hcl Immed Release 5 Mg Tablet PO 5 mg Q6H PRN Administration Pain, Moderate(Pain Scale 4-6) Medical Decision Making Medical Decision Making [facility] Narrative: 64 yo male with PMH of HTN on irbesartan here with c/o generalized weakness - he came in asking for rehab. He has recovered post surgery some R sided improvement but has had chronic L lower ext weakness and tingling since surgery. He had symptoms prior. He never improved. He has no new pain anywhere He did tell the RN he had a headache at one point but no pain now. He did not relay this to me. I do think he should get a CT head for any possible mass. Differential Diagnosis Differential Diagnoses: The differential diagnosis associated with the presentation includes lyte abnormality, anemia, FTT Admission/Observation Consideration of admission/observation: Escalation of care including admission/observation considered admit for hyponatremia Consult Healthcare Provider Management of the patient was discussed with: Hospitalist (will admit) Lab Data [facility] Lab Attestation statement: I reviewed the patient's lab results. 07/03/25 16:04 07/03/25 16:04 Labs: Lab Results 07/03/25 07/03/25 Range/Units 16:04 16:05 WBC 3.7 L (4.8-10.8) X10*3/uL RBC 3.72 L (4.60-5.80) X10*6/uL Hgb 12.6 L (14.0-18.0) g/dl Hct 35.4 L (42.0-52.0) % MCV 95.2 (80.0-98.0) fL MCH 33.9 H (27.0-33.0) pg MCHC 35.6 (31.0-36.0) g/dl RDW 13.7 (11.0-16.0) % Plt Count 214 (160-400) X10*3/uL MPV 8.5 L (9.4-12.4) fL Immature Gran % (Auto) 0.3 (0.0-0.4) % Neut % (Auto) 57.6 (45-73) % Lymph % (Auto) 29.8 (20-40) % [place] % (Auto) 11.5 H (2-11) % Eos % (Auto) 0.3 (0-4) % Baso % (Auto) 0.5 (0-2) % Lymph # (Auto) 1.1 L (1.2-4.9) X10*3/uL [place] # (Auto) 0.4 (0.1-1.2) X10*3/uL Eos # (Auto) 0.0 (0.0-0.4) X10*3/uL Baso # (Auto) 0.0 (0.0-0.2) X10*3/uL Abs Immat Gran (auto) 0.01 (0.00-0.03) X10*3/uL Absolute Neuts (auto) 2.2 (2.0-8.3) x10*3/uL Absolute Nucleated RBC 0.000 (0.0-0.012) X10*3/uL Nucleated RBC % (auto) 0.0 (0.0-0.2) /100WBC Hold Purple Top SEE NOTE Hold Blue Top SEE NOTE Sodium 122 L (135-145) mmol/L Potassium 4.5 (3.3-5.1) mmol/L Chloride 90 L (96-108) mmol/L Carbon Dioxide 26 (22-29) mmol/L Anion Gap 11 L (12-20) BUN 8 L (9-16) mg/dL Creatinine 0.55 (0.5-1.4) mg/dL Estim Creat Clear Calc 126.2 Estimated GFR > 60 Random Glucose 84 (60-115) mg/dL Calcium 9.0 (8.4-10.2) mg/dL Magnesium 2.0 (1.6-2.6) mg/dL Total Bilirubin 0.6 (0.0-1.0) mg/dL AST 17 (5-37) U/L ALT 17 (0-40) U/L Alkaline Phosphatase 98 (39-117) U/L Troponin I High Sens < 2.7 (<3.5-35.0) ng/L Total Protein 6.2 L (6.5-8.0) g/dL Albumin 4.1 (3.5-5.0) g/dL Independent Interpretation I performed an independent interpretation of an: EKG and CT Scan (no mass) Interpretation: Rate: 62 Rhythm: NSR [place]: normal Normal P waves. Normal DILAN. Normal QRS complex. ST T wave : no FALGUNI, flat t waves aVL qTC: 397 prior studies: no FALGUNI The study has been interpreted contemporaneously by me. . Radiology Impression Discussion of test interpretation with radiology: I have reviewed the radiologist's reading. External Record Review External record reviewed: Outpatient record Discharge Plan Discharge Clinical Impression: Weakness, Acute hyponatremia Patient Disposition: Admitted As Inpatient
[2025-07-03] MEDS: oxyCODONE HCl Immed Release 5 MG TABLET PO ×2 (16:58→22:09)
[2025-07-03 17:32] VITALS: BP 135/68; PULSE 61; RESP 18; TEMP 36.7; O2SAT 97
[2025-07-03 18:06] VITALS: BP 129/81; PULSE 59; RESP 14; TEMP 36.8; O2SAT 99
--- NOTE | 2025-07-03 18:06 | PC.NURSE ---
175 Urea and Sodium tab requested from pharmacy via [employer]
--- NOTE | 2025-07-03 18:07 | PHA.MEDREC ---
Pharmacy Consult ? Medication Reconciliation Pharmacy has completed the medication reconciliation. Spoke with patient to confirm medications. He is no longer taking nifedipine, celecoxib, senna, oxycodone, and docusate. He took his Eliquis this morning. His vitamin D2 is on Tuesdays, taken last Saturday.
[2025-07-03] MEDS: Sodium Chloride Tab 1 GM TABLET 2 GM PO (18:22)
[2025-07-03 19:15] LABS: Appearance Urine Clear; Glucose Urine UA Negative (Negative); PH 7.5 (5.0-9.0); Specific Gravity - Urine <= 1.005 (1.005-1.025)
[2025-07-03 19:48] LABS: Osmolality, Serum 266 mosm/kg (281-305)
[2025-07-03 20:10] VITALS: BP 129/73; PULSE 60; RESP 16; O2SAT 98
--- NOTE | 2025-07-03 21:28 | PC.NURSE ---
pt complains of 8 left hip/knee/leg pain- pt last had PRn analgesia, oxycodone 5mg at 1658- MD Mancilla notified via [employer].
[2025-07-03] MEDS: 0.9 % Sodium Chloride Flush 3 ML SYRINGE IVFLUSH (23:12)
[2025-07-04] VITALS (9 sets, daily range): BP systolic 91–124; BP diastolic 49–64; PULSE 57–66; RESP 12–16; TEMP 36.3–37.1; O2SAT 94–100
[2025-07-04] MEDS: oxyCODONE HCl Immed Release 5 MG TABLET PO ×5 (02:51→21:33)
[2025-07-04 04:04] LABS: Anion Gap 10 (12-20); Blood Urea Nitrogen 8 mg/dL (9-16); Calcium 8.6 mg/dL (8.4-10.2); Carbon Dioxide 25 mmol/L (22-29); Chloride 98 mmol/L (96-108); Creatinine Clr Calc Pharmacy 138.9; Estimated Glomerular Filt Rate > 60; Potassium 3.9 mmol/L (3.3-5.1); Sodium 129 mmol/L (135-145)
--- NOTE | 2025-07-04 05:05 | PC.NURSE ---
Assumed care of patient at 2300. Ambulated from stretcher to bed with walker, standby assistance. Patient is alert and oriented x 3, calm and cooperative. He is reporting left sided pain, PRN oxycodone administered with effect. No further issues throughout the night. Patient awaiting med surg bed assignment. Bed in lowest setting, locked and alarmed. Call su within reach.
[2025-07-04] MEDS: 0.9 % Sodium Chloride Flush 3 ML SYRINGE IVFLUSH ×2 (07:12→15:00)
--- NOTE | 2025-07-04 08:01 | PC.NURSE ---
Called kitchen regarding missing breakfast tray, awaiting arrival of tray. Pt aware. Ambulated to bathroom with walker use & standby assist. Recently medicated for left leg pain at 7:10AM with PRN oxycodone. Care ongoing by this RN.
--- NOTE | 2025-07-04 09:29 | PC.NURSE ---
Valsartan 160mg is interchange med for Irbesartan 300mg, confirmed by pharmacist Annetta Florentino. Spoke with Dr. Ayala regarding improved sodium of 129 compared to initial 122. Per Dr. Ayala, no additional/further interventions required at this time for low sodium. Pt is alert/oriented, pleasant/calm/cooperative. Care ongoing by this RN.
--- NOTE | 2025-07-04 09:52 | PC.NURSE ---
Dr. Ayala to bedside speaking with the patient.
--- NOTE | 2025-07-04 12:50 | PC.NURSE ---
Assumed care of patient in ED overflow unit at 1130. Patient alert and oriented, calm and cooperative with care. VSS. Lungs clear, on room air, unlabored breathing. C/O left leg pain, 5mg po oxycodone administered at 1200. Bed alarm on for safety and call su in reach. Encouraged to use call su for all needs.
--- NOTE | 2025-07-04 13:58 | P.PNIM_ITS ---
Subjective Subjective Date of Service: 07/04/25 Interval History: still c/o L sided weakness no headache Na improving Review of Systems Review of Systems: Yes all other systems are reviewed and are negative Physical Exam 2 Vital Signs: Vital Signs: Last Vital Signs Temp 98.4 F 07/04/25 13:53 Pulse 63 07/04/25 13:53 Resp 16 07/04/25 13:53 BP 97/52 L 07/04/25 13:53 Pulse Ox 98 07/04/25 13:53 O2 Del Method Room Air 07/04/25 13:53 BMI result Body Mass Index 21.1 Gen: in no acute distress HEENT: sclera anicteric, moist mucus membranes Neck: supple Lungs: clear to auscultation bilaterally Heart: regular rate and rhythm, no murmurs Abd: soft, non-tender, non-distended Ext: no edema Skin: warm/well-perfused Neuro: alert and oriented x3, L-sided weakness [present since surgery per pt] Psych: appropriate affect Objective Data Active Medications Acetaminophen (Acetaminophen 325 Mg Tablet) 650 mg PO Q6H PRN PRN Reason: Pain, Mild 1-3,fever,headache Apixaban (Apixaban 5 Mg Tablet) 5 mg PO BID [facility] Last Admin: 07/04/25 09:13 Dose: 5 mg Documented By: FADI Calcium Carbonate (Calcium Carbonate 750 Mg Tab.Chew) 750 mg PO Q4H PRN PRN Reason: Heartburn Ergocalciferol (Ergocalciferol (Vitamin D2) 1,250 Mcg Capsule) 1,250 mcg PO [facility] Gabapentin (Gabapentin 300 Mg Capsule) 300 mg PO TID [facility] Last Admin: 07/04/25 09:13 Dose: 300 mg Documented By: FADI Magnesium Hydroxide (Milk Of Magnesia 30 Ml Oral.Susp) 30 ml PO DAILY PRN PRN Reason: Constipation Melatonin (Melatonin 3 Mg Tablet) 6 mg PO BEDTIME PRN PRN Reason: Insomnia Oxycodone HCl (Oxycodone Hcl Immed Release 5 Mg Tablet) 5 mg PO Q4H PRN PRN Reason: Pain, Severe (Pain Scale 7-10) Last Admin: 07/04/25 12:00 Dose: 5 mg Documented By: GERSON Sodium Chloride (0.9 % Sodium Chloride Flush 3 Ml Syringe) [facility] Last Admin: 07/04/25 07:12 Dose: 3 ml Documented By: FADI Valsartan (Valsartan 160 Mg Tablet) 160 mg PO DAILY [facility]; Protocol Last Admin: 07/04/25 09:43 Dose: 160 mg Documented By: FADI Labs 07/03/25 16:04 07/04/25 03:38 Labs: Laboratory Results - last 24 hr 07/03/25 07/03/25 07/03/25 16:04 16:05 19:02 MCV 95.2 MCH 33.9 H MCHC 35.6 RDW 13.7 Plt Count 214 MPV 8.5 L Immature Gran % (Auto) 0.3 Neut % (Auto) 57.6 Lymph % (Auto) 29.8 [place] % (Auto) 11.5 H Eos % (Auto) 0.3 Baso % (Auto) 0.5 Lymph # (Auto) 1.1 L [place] # (Auto) 0.4 Eos # (Auto) 0.0 Baso # (Auto) 0.0 Abs Immat Gran (auto) 0.01 Absolute Neuts (auto) 2.2 Absolute Nucleated RBC 0.000 Nucleated RBC % (auto) 0.0 Hold Purple Top SEE NOTE Hold Blue Top SEE NOTE Anion Gap 11 L Estim Creat Clear Calc 126.2 Estimated GFR > 60 Random Glucose 84 Osmolality Calcium 9.0 Magnesium 2.0 Total Bilirubin 0.6 AST 17 ALT 17 Alkaline Phosphatase 98 Troponin I High Sens < 2.7 Total Protein 6.2 L Albumin 4.1 Urine Color Yellow Urine Appearance Clear Urine pH 7.5 Ur Specific [place] <= 1.005 Urine Protein Negative Urine Glucose (UA) Negative Urine Ketones Negative Urine Blood Negative Urine Nitrite Negative Ur Leukocyte Esterase Negative Urine Osmolality 141 L Ur Random Sodium < 20.0 Urine Creatinine 16.01 07/03/25 07/04/25 19:05 03:38 MCV MCH MCHC RDW Plt Count MPV Immature Gran % (Auto) Neut % (Auto) Lymph % (Auto) [place] % (Auto) Eos % (Auto) Baso % (Auto) Lymph # (Auto) [place] # (Auto) Eos # (Auto) Baso # (Auto) Abs Immat Gran (auto) Absolute Neuts (auto) Absolute Nucleated RBC Nucleated RBC % (auto) Hold Purple Top Hold Blue Top Anion Gap 10 L Estim Creat Clear Calc 138.9 Estimated GFR > 60 Random Glucose 81 Osmolality 266 L Calcium 8.6 Magnesium Total Bilirubin AST ALT Alkaline Phosphatase Troponin I High Sens Total Protein Albumin Urine Color Urine Appearance Urine pH Ur Specific [place] Urine Protein Urine Glucose (UA) Urine Ketones Urine Blood Urine Nitrite Ur Leukocyte Esterase Urine Osmolality Ur Random Sodium Urine Creatinine Assessment and Plan (1) Acute hyponatremia: Status: Acute Assessment and Plan: d2, 64yo M with recent cervical spinal fusion presenting for pain control, found to have hypoNa acute hypoNa - SIADH vs prerenal - Nephrology consulted, gave 30 gm urea and 2 gm NaCl, on fluid restriction, Na improving appropriately - not on thiazide weakness/chronic pain s/p cervical spinal fusion - pain control with gabapentin, oxycodone - PT evaluation pending HTN: ARB hx DVT: apixaban VTE ppx: apixaban dispo: STR, PT eval pending In my clinical judgment, the patient requires continued inpatient hospitalization for the following reasons: hypoNa Total time managing care of this patient today: 35 minutes. Quality Stroke Does the patient have a stroke diagnosis?: No VTE Prior VTE?: No VTE Risk Level:: Medical - low VTE Device Contraindication: N/A - Device Ordered VTE Drug Contraindication: N/A - Med Ordered
[2025-07-04 15:10] LABS: Sodium 130 mmol/L (135-145)
[2025-07-05] VITALS (7 sets, daily range): BP systolic 94–127; BP diastolic 49–67; PULSE 61–72; RESP 15–18; TEMP 36.4–36.9; O2SAT 97–98; BMI 20.5
[2025-07-05] MEDS: 0.9 % Sodium Chloride Flush 3 ML SYRINGE IVFLUSH ×4 (00:28→20:33)
[2025-07-05] MEDS: oxyCODONE HCl Immed Release 5 MG TABLET PO ×6 (01:15→23:53)
--- NOTE | 2025-07-05 03:06 | PC.NURSE ---
0300 Patient sleeping most of the night with waking to left hip/thigh leg pain. Patient reports left leg numbness,tingling and difficulties moving left leg . Patient reports he is able to feel light tactile pressure applied to thigh muscle, able to wiggle toes and can move left leg with assistance. Patient reports his symptoms have not worsen since coming to the hospital and Oxycodone helps decrease his pain and help him to move his left leg . Warm packs applied to thigh area for added pain relief benefit. Patient Alert, oriented x4, polite and cooperative. Bed in lowest setting, locked and alarmed, call su within reach. Pt encouraged to use call su for all needs and patient demonstrated use of call button. Plan is for repeat lab and physical therapy.
[2025-07-05 04:09] LABS: Anion Gap 9 (12-20); Blood Urea Nitrogen 17 mg/dL (9-16); Calcium 8.5 mg/dL (8.4-10.2); Carbon Dioxide 27 mmol/L (22-29); Chloride 99 mmol/L (96-108); Creatinine Clr Calc Pharmacy 115.7; Estimated Glomerular Filt Rate > 60; Potassium 4.3 mmol/L (3.3-5.1); Sodium 131 mmol/L (135-145)
--- NOTE | 2025-07-05 14:32 | P.PNIM_ITS ---
Subjective Subjective Date of Service: 07/05/25 Interval History: BP low; valsartan held neck pain controlled seen by PT; AIR recommended Review of Systems Review of Systems: Yes all other systems are reviewed and are negative Physical Exam 2 Vital Signs: Vital Signs: Last Vital Signs Temp 98.2 F 07/05/25 09:22 Pulse 69 07/05/25 09:22 Resp 16 07/05/25 09:22 BP 94/49 L 07/05/25 11:44 Pulse Ox 98 07/05/25 09:22 O2 Del Method Room Air 07/05/25 09:22 BMI result Body Mass Index 21.1 Gen: in no acute distress HEENT: sclera anicteric, moist mucus membranes Neck: supple Lungs: clear to auscultation bilaterally Heart: regular rate and rhythm, no murmurs Abd: soft, non-tender, non-distended Ext: no edema Skin: warm/well-perfused Neuro: alert and oriented x3, L-sided weakness [present since surgery per pt] Psych: appropriate affect Objective Data Active Medications Acetaminophen (Acetaminophen 325 Mg Tablet) 650 mg PO Q6H PRN PRN Reason: Pain, Mild 1-3,fever,headache Apixaban (Apixaban 5 Mg Tablet) 5 mg PO BID [facility] Last Admin: 07/05/25 09:38 Dose: 5 mg Documented By: DERRICK Calcium Carbonate (Calcium Carbonate 750 Mg Tab.Chew) 750 mg PO Q4H PRN PRN Reason: Heartburn Ergocalciferol (Ergocalciferol (Vitamin D2) 1,250 Mcg Capsule) 1,250 mcg PO [facility] Gabapentin (Gabapentin 300 Mg Capsule) 300 mg PO TID [facility] Last Admin: 07/05/25 09:38 Dose: 300 mg Documented By: DERRICK Magnesium Hydroxide (Milk Of Magnesia 30 Ml Oral.Susp) 30 ml PO DAILY PRN PRN Reason: Constipation Melatonin (Melatonin 3 Mg Tablet) 6 mg PO BEDTIME PRN PRN Reason: Insomnia Oxycodone HCl (Oxycodone Hcl Immed Release 5 Mg Tablet) 5 mg PO Q4H PRN PRN Reason: Pain, Severe (Pain Scale 7-10) Last Admin: 07/05/25 09:37 Dose: 5 mg Documented By: DERRICK Sodium Chloride (0.9 % Sodium Chloride Flush 3 Ml Syringe) 3 ml IVFLUSH QSHIFT [facility] Last Admin: 07/05/25 09:38 Dose: 3 ml Documented By: DERRICK Valsartan (Valsartan 160 Mg Tablet) 160 mg PO DAILY [facility]; Protocol Last Admin: 07/05/25 09:33 Dose: Not Given Documented By: DERRICK Non-Admin Reason: bp too low Labs 07/03/25 16:04 07/05/25 03:38 Labs: Laboratory Results - last 24 hr 07/05/25 03:38 Anion Gap 9 L Estim Creat Clear Calc 115.7 Estimated GFR > 60 Random Glucose 82 Calcium 8.5 Assessment and Plan (1) Acute hyponatremia: Status: Acute Assessment and Plan: d3, 64yo M with recent cervical spinal fusion presenting for pain control, found to have hypoNa acute hypoNa - SIADH vs prerenal; probably mostly prerenal with Surya ,20 - Nephrology consulted, gave 30 gm urea and 2 gm NaCl, on fluid restriction, Na improved appropriately - will d/c fluid restriction, recheck Na tomorow and again in a few days - not on thiazide weakness/chronic pain s/p cervical spinal fusion - pain control with gabapentin, oxycodone - PT evaluation: AIR recommended. OT evaluation pending. HTN: ARB- holding for low BP hx DVT: apixaban VTE ppx: apixaban dispo: AIR In my clinical judgment, the patient requires continued inpatient hospitalization for the following reasons: placement Total time managing care of this patient today: 35 minutes. Quality Stroke Does the patient have a stroke diagnosis?: No VTE Prior VTE?: No VTE Risk Level:: Medical - low VTE Device Contraindication: N/A - Device Ordered VTE Drug Contraindication: N/A - Med Ordered
--- NOTE | 2025-07-05 14:52 | MHC.CM.PN ---
pt from home with serices thru [facility] ,acp and life alert plan is for rehab
--- NOTE | 2025-07-05 16:09 | MHC.CLN ---
CONSULT DIET RX: REGULAR. PATIENT PLEASED WITH FOOD. DOES NOT WANT ENSURE SUPPLEMENT. REPORTS THAT INTAKE CURRENTLY VERY GOOD. SIGNIFICANT WEIGHT LOSS POST SPINAL FUSION SURGERY. REPORTS DYSPHAGIA POST SURGERY AND NOW ABLE TO TOLERATE REGULAR DIET. QUALIFIES MODERATELY MALNOURISHED IN THE CONTEXT OF ACUTE ILLNESS. CONTINUE REGULAR DIET. FOLLOW FOR PO INTAKE. SEE CLINICAL NUTRITION ASSESSMENT 07/05/25.
[2025-07-06 03:38] VITALS: BP 109/55; PULSE 53; RESP 18; TEMP 36.4; O2SAT 97
[2025-07-06 06:19] LABS: Anion Gap 10 (12-20); Blood Urea Nitrogen 17 mg/dL (9-16); Calcium 8.7 mg/dL (8.4-10.2); Carbon Dioxide 28 mmol/L (22-29); Chloride 97 mmol/L (96-108); Creatinine Clr Calc Pharmacy 124.0; Estimated Glomerular Filt Rate > 60; Potassium 4.4 mmol/L (3.3-5.1); Sodium 131 mmol/L (135-145)
[2025-07-06] MEDS: oxyCODONE HCl Immed Release 5 MG TABLET PO ×3 (07:10→20:28)
[2025-07-06 07:56] VITALS: BP 105/58; PULSE 59; RESP 18; TEMP 36.2; O2SAT 99
[2025-07-06] MEDS: 0.9 % Sodium Chloride Flush 3 ML SYRINGE IVFLUSH ×2 (08:35→20:28)
--- NOTE | 2025-07-06 08:56 | P.PNIM_ITS ---
Subjective Subjective Date of Service: 07/06/25 Interval History: Pain seems better controlled, awaiting acute inpatient rehab (AIR) lower BP seems improved Review of Systems Review of Systems: Yes all other systems are reviewed and are negative Physical Exam 2 Vital Signs: Vital Signs: Last Vital Signs Temp 97.2 F 07/06/25 07:56 Pulse 59 07/06/25 07:56 Resp 18 07/06/25 07:56 BP 105/58 L 07/06/25 07:56 Pulse Ox 99 07/06/25 07:56 O2 Del Method Room Air 07/06/25 07:56 BMI result Body Mass Index 20.5 Objective Data Active Medications Acetaminophen (Acetaminophen 325 Mg Tablet) 650 mg PO Q6H PRN PRN Reason: Pain, Mild 1-3,fever,headache Last Admin: 07/06/25 02:42 Dose: 650 mg Documented By: AMISHA Apixaban (Apixaban 5 Mg Tablet) 5 mg PO BID [facility] Last Admin: 07/06/25 08:35 Dose: 5 mg Documented By: PHILOMENA Calcium Carbonate (Calcium Carbonate 750 Mg Tab.Chew) 750 mg PO Q4H PRN PRN Reason: Heartburn Ergocalciferol (Ergocalciferol (Vitamin D2) 1,250 Mcg Capsule) 1,250 mcg PO TU [facility] Last Admin: 07/06/25 08:35 Dose: 1,250 mcg Documented By: PHILOMENA Gabapentin (Gabapentin 300 Mg Capsule) 300 mg PO TID [facility] Last Admin: 07/06/25 08:35 Dose: 300 mg Documented By: PHILOMENA Magnesium Hydroxide (Milk Of Magnesia 30 Ml Oral.Susp) 30 ml PO DAILY PRN PRN Reason: Constipation Melatonin (Melatonin 3 Mg Tablet) 6 mg PO BEDTIME PRN PRN Reason: Insomnia Oxycodone HCl (Oxycodone Hcl Immed Release 5 Mg Tablet) 5 mg PO Q4H PRN PRN Reason: Pain, Severe (Pain Scale 7-10) Last Admin: 07/06/25 07:10 Dose: 5 mg Documented By: AMISHA Sodium Chloride (0.9 % Sodium Chloride Flush 3 Ml Syringe) 3 ml IVFLUSH QSHIFT [facility] Last Admin: 07/06/25 08:35 Dose: 3 ml Documented By: HO.LAPOINM Valsartan (Valsartan 160 Mg Tablet) 160 mg PO DAILY [facility]; Protocol On Hold: 07/05/25 14:34 Last Admin: 07/05/25 09:33 Dose: Not Given Documented By: DERRICK Non-Admin Reason: bp too low Labs 07/03/25 16:04 07/06/25 05:21 Labs: Laboratory Results - last 24 hr 07/06/25 05:21 Anion Gap 10 L Estim Creat Clear Calc 124.0 Estimated GFR > 60 Random Glucose 81 Calcium 8.7 Assessment and Plan (1) Acute hyponatremia: Status: Acute Assessment and Plan: 64yo M with recent cervical spinal fusion presenting for pain control, found to have hypoNa acute hypoNa, appear chronic - SIADH vs prerenal; probably mostly prerenal with Surya ,20 - Nephrology following, gave 30 gm urea and 2 gm NaCl, on fluid restriction, Na responded appropriately - No longer needs fluid restriction, follow sodium level closely - not on thiazide weakness/chronic pain s/p cervical spinal fusion - pain control with gabapentin, oxycodone - PT evaluation: AIR recommended. OT evaluation pending. HTN: ARB- holding for low BP hx DVT: apixaban VTE ppx: apixaban dispo: AIR In my clinical judgment, the patient requires continued inpatient hospitalization for placement Total time managing care of this patient today: 35 minutes. Quality Stroke Does the patient have a stroke diagnosis?: No VTE Prior VTE?: No VTE Risk Level:: Medical - low VTE Device Contraindication: N/A - Device Ordered VTE Drug Contraindication: N/A - Med Ordered
--- NOTE | 2025-07-06 10:27 | PM.CNNEP ---
History of Present Illness Reason for Consult Consult date: 07/06/25 Chief Complaint Chief complaint: hyponatremia History of Present Illness Narrative: 64 male who presents to the emergency department with left leg pain and weakness. He reportedly had a cervical fusion at [place] at the end of May. At that time he had bilateral lower extremity weakness. Following surgery he had ongoing left-sided weakness which improved somewhat when he went to physical therapy following discharge. He has not yet regained strength in his left side has been primarily weight-bearing on his right. Review of Systems Constitutional: Denies fever(s) and Denies weight loss Cardiovascular: Denies chest pain Respiratory: Denies cough and Denies hemoptysis Gastrointestinal: Denies abdominal pain, Denies diarrhea and Denies nausea Musculoskeletal: Denies back pain Denies focal weakness PMFSH Past Medical History Medical History HTN (hypertension) Surgical History Surgical History S/P cervical spinal fusion Social History Social History Household Members: None Housing: Apartment Do you presently have visiting nurse or other home services: Yes (1x week) Alcohol intake: former Patient Tobacco Use Status: Never used Tobacco service: No Meds Allergies Allergy/AdvReac Type Severity Reaction Status Date / Time No Known Allergies (No Known Allergy Unverified 07/03/25 15:29 Allergies*) Active Medications: Current Medications Acetaminophen (Acetaminophen 325 Mg Tablet) 650 mg PO Q6H PRN PRN Reason: Pain, Mild 1-3,fever,headache Last Admin: 07/06/25 02:42 Dose: 650 mg Apixaban (Apixaban 5 Mg Tablet) 5 mg PO BID [facility] Last Admin: 07/06/25 08:35 Dose: 5 mg Calcium Carbonate (Calcium Carbonate 750 Mg Tab.Chew) 750 mg PO Q4H PRN PRN Reason: Heartburn Ergocalciferol (Ergocalciferol (Vitamin D2) 1,250 Mcg Capsule) 1,250 mcg PO TU [facility] Last Admin: 07/06/25 08:35 Dose: 1,250 mcg Gabapentin (Gabapentin 300 Mg Capsule) 300 mg PO TID [facility] Last Admin: 07/06/25 08:35 Dose: 300 mg Magnesium Hydroxide (Milk Of Magnesia 30 Ml Oral.Susp) 30 ml PO DAILY PRN PRN Reason: Constipation Melatonin (Melatonin 3 Mg Tablet) 6 mg PO BEDTIME PRN PRN Reason: Insomnia Oxycodone HCl (Oxycodone Hcl Immed Release 5 Mg Tablet) 5 mg PO Q4H PRN PRN Reason: Pain, Severe (Pain Scale 7-10) Last Admin: 07/06/25 07:10 Dose: 5 mg Sodium Chloride (0.9 % Sodium Chloride Flush 3 Ml Syringe) [facility] Last Admin: 07/06/25 08:35 Dose: 3 ml Valsartan (Valsartan 160 Mg Tablet) 160 mg PO DAILY [facility]; Protocol On Hold: 07/05/25 14:34 Last Admin: 07/05/25 09:33 Dose: Not Given Home Medications ?Medication ?Instructions ?Recorded ?Confirmed ?Last Taken ?Type acetaminophen 650 mg 1,300 mg PO Q8H PRN Pain 07/03/25 07/03/25 07/03/25 History tablet,extended release apixaban 5 mg tablet (Eliquis) 5 mg PO BID 07/03/25 07/03/25 07/03/25 09:00 History ergocalciferol (vitamin D2) 1,250 1,250 mcg PO TU 07/03/25 07/03/25 06/29/25 History mcg (50,000 unit) capsule gabapentin 300 mg capsule 300 mg PO TID 07/03/25 07/03/25 07/03/25 History irbesartan 300 mg tablet 300 mg PO DAILY 07/03/25 07/03/25 07/03/25 History Physical Exam Vital Signs: Last Vital Signs Temp 97.2 F 07/06/25 07:56 Pulse 59 07/06/25 07:56 Resp 18 07/06/25 07:56 BP 105/58 L 07/06/25 07:56 Pulse Ox 99 07/06/25 07:56 O2 Del Method Room Air 07/06/25 07:56 BMI result Body Mass Index 20.5 Awake. Comfortable. Neck is supple. Mucosa moist. Lungs bilateral scattered rhonchi. Heart S1-S2 heard no gallop. Abdomen soft. Extremities no edema. No involuntary movements. No myoclonus. Results Lab Results 07/03/25 16:04 07/06/25 05:21 Lab results: Chemistry 07/03/25 07/04/25 07/04/25 16:04 03:38 14:58 Sodium 122 L 129 L 130 L Potassium 4.5 3.9 Carbon Dioxide 26 25 BUN 8 L 8 L Creatinine 0.55 0.50 Calcium 9.0 8.6 07/05/25 07/06/25 03:38 05:21 Sodium 131 L 131 L Potassium 4.3 4.4 Carbon Dioxide 27 28 BUN 17 H 17 H Creatinine 0.60 0.56 Calcium 8.5 8.7 Hematology 07/03/25 16:04 WBC 3.7 L Hgb 12.6 L Plt Count 214 Urinalysis 07/03/25 19:02 Urine Color Yellow Urine Appearance Clear Urine pH 7.5 Ur Specific [place] <= 1.005 Urine Protein Negative Urine Glucose (UA) Negative Urine Ketones Negative Urine Blood Negative Urine Nitrite Negative Ur Leukocyte Esterase Negative Urine Studies 07/03/25 19:02 Urine Osmolality 141 L Urine Creatinine 16.01 Assessment and Plan (1) Acute hyponatremia: Status: Acute Plan Due to excessive free water intake and decreased free water clearance. Serum sodium has gradually correcting. Rate of correction acceptable. Goal is to correct serum sodium at a rate of 0.5-1 millimole per L/hr not more than 10 millimoles in 24 hours. Keep him on oral free water restriction Monitor serum sodium periodically. No need for salt tablets or urea powder at this time. Shall follow with the team as needed Procedures Date of Service Date of Service: 07/06/25
--- NOTE | 2025-07-06 13:43 | MHC.CM.PN ---
PT HAS CHOSEN [facility] FIRST CHOICE FOR REHAB. [facility] HAS OFFERED AND BED AND HAS STARTED THE AUTH PROCESS. CM WILL CONTINUE TO AWAIT AUTH APPROVAL.
[2025-07-06 16:00] VITALS: BP 90/53; PULSE 59; RESP 18; TEMP 36.2; O2SAT 99
[2025-07-06 19:36] VITALS: BP 97/54; PULSE 60; RESP 18; TEMP 36.3; O2SAT 98
[2025-07-07 03:27] VITALS: BP 108/57; PULSE 57; RESP 18; TEMP 36.7; O2SAT 99
[2025-07-07] MEDS: oxyCODONE HCl Immed Release 5 MG TABLET PO (03:37)
--- NOTE | 2025-07-07 05:44 | PC.NURSE ---
Pt seen on a recliner chair at shift change, alert and oriented, still with left leg pain prn Oxycodone 5 mg po given , assisted back to bed , slept thereafter.
[2025-07-07 07:28] VITALS: BP 117/58; PULSE 57; RESP 16; TEMP 36; O2SAT 97
[2025-07-07] MEDS: 0.9 % Sodium Chloride Flush 3 ML SYRINGE IVFLUSH (08:42)
--- NOTE | 2025-07-07 08:58 | MHC.CLN ---
F/U DIET RX: REGULAR. MOST RECENT QPPWMW=365 L. INTAKE AT MEALS 75-100%. NO NOTED CONCERNS WITH CURRENT DIET. CONTINUE TO MONITOR PO AND PLAN OF CARE.
--- NOTE | 2025-07-07 09:24 | PM.DS ---
DS: Providers Provider Date of Service: 07/07/25 Date of admission: 07/03/25 16:54 Date of discharge: 07/07/25 Primary care physician: Quincy Ma MD Consults: 07/03/25 17:30 Consult to Nephrology Routine Consulting Provider: [facility] Reason for consultation: hyponatremia Has provider been notified: No DS: Diagnosis Discharge Diagnosis (1) Acute hyponatremia: Status: Acute DS: Summary Hospital Course Hospital Course: admission hpi Chief Complaint: weakness, pain This is a 64 male who presents to the emergency department with left leg pain and weakness. He reportedly had a cervical fusion at [place] at the end of May. At that time he had bilateral lower extremity weakness. Following surgery he had ongoing left-sided weakness which improved somewhat when he went to physical therapy following discharge. He has not yet regained strength in his left side has been primarily weight-bearing on his right. He has had ongoing tingling in his feet. And he is having pain, says he was not discharged from rehab with any pain medication. Cervical spine imaging and brain CT pending at this time. Lab work was significant for hyponatremia with a sodium of 122. Patient denies any previous history of hyponatremia. He denies taking hydrochlorothiazide any longer, only taking irbesartan. He will be admitted to the hospital for further management Hospital course: 64-year-old male with a recent cervical spinal fusion, admitted for pain control and found to have hyponatremia. Acute on chronic hyponatremia Etiology: SIADH vs. prerenal; likely predominantly prerenal (urine sodium <20). Nephrology consulted. Treated with 30 g urea and 2 g NaCl. Sodium improved from 122 to 131 and is now stable. Patient remains asymptomatic. Weakness/chronic pain status post cervical spinal fusion Pain managed with gabapentin and oxycodone. Evaluated by PT and OT; acute inpatient rehab (AIR) recommended. Hypertension Irbesartan held due to low blood pressure. History of DVT Continue apixaban. Dispo: To inpatient rehab Time Attestation Discharge Coordination Time (in mins): 40 Quality: Safe Use of Opioids Does Pt have an Active Cancer Diagnosis on the Problem List?: No Quality: Stroke Does the patient have a stroke diagnosis?: No Physical Exam Vital Signs: Vital Signs: Last Vital Signs Temp 96.8 F 07/07/25 07:28 Pulse 57 07/07/25 07:28 Resp 16 07/07/25 07:28 BP 117/58 L 07/07/25 07:28 Pulse Ox 97 07/07/25 07:28 O2 Del Method Room Air 07/07/25 07:28 BMI result Body Mass Index 20.5 Discharge Plan Discharge Anticipated Discharge Date/Time: 07/07/25 09:35 Patient Disposition: Xfer Inpatient Rehab Fac Discharge Diagnosis: Acute and chronic hyponatremia, Neck pain Referrals: Quincy Ma MD [Primary Care Provider, Internal Medicine] - 1 Week Discharge Medications: New oxycodone 5 mg Tablet 5 mg PO Q4H PRN (Reason: Pain, Severe (Pain Scale 7-10)) Qty: 20 0RF Rx Instructions: Partial Fill upon patient request. Continued acetaminophen 650 mg tablet extended release 1,300 mg PO Q8H PRN (Reason: Pain) gabapentin 300 mg capsule 300 mg PO TID ergocalciferol (vitamin D2) 1,250 mcg (50,000 unit) capsule 1,250 mcg PO TU Eliquis 5 mg tablet 5 mg PO BID Discontinued irbesartan 300 mg tablet 300 mg PO DAILY Discharge Orders: Discharge Order (Routine); Ordered 07/07/25 Ordered By: Artis Pandya Diet: Advance to usual diet Activity on Discharge: As tolerated Stand Alone Forms: Patient Portal Discharge page Print Language: Israeli Care Plan Goals: Acute inpatient rehab for functional recovery and pain management following recent surgical fusion surgery; monitor sodium, blood pressure, and anticoagulation with appropriate follow-up. Health Concerns: hyponatermia, neck pain, low blood pressure, history of DVT Plan of Treatment: Monitor sodium level PT and OT and pain control with gabapentin and oxycodone hold Irbesartan because of low blood pressure Check BMP within a week, and outpatient follow up with [facility] team Assessment: see above
--- NOTE | 2025-07-07 10:53 | MHC.CM.PN ---
DP: PT HAS BEEN MEDICALLY CLEARED FOR DC TO STR AT [facility]. [facility] HAS OBTAINED INSURANCE AUTH. S TRANSPORT BOOKED FOR 11:30 AM VIA [facility]. RN UPDATED.
[2025-07-07 11:20] VITALS: BP 108/59; PULSE 60; RESP 16; TEMP 36.1; O2SAT 100
== END 2025-07-07 11:37 | DRG 641 ==
LOC: HO.ED 16:12 → HO.EDOVER 16:57 → HO.S3 07-05 13:55
PROVIDERS: Family Medicine; Admitting Provider Physician Assistant Medical; Emergency Provider Emergency Medicine; PCP Internal Medicine; Visit Provider Internal Medicine
DX: E87.1 Hypo-osmolality and hyponatremia (principal); G89.18 Other acute postprocedural pain; M54.2 Cervicalgia; I10 Essential (primary) hypertension; Z86.718 Personal history of other venous thrombosis and embolism; Z98.1 Arthrodesis status; Z79.01 Long term (current) use of anticoagulants; Z79.899 Other long term (current) drug therapy
CPT/HCPCS: 36415; 70450; 72040; 80048; 80053; 81003; 82570; 83735; 83930; 83935; 84295; 84300; 84484; 85025; 93005; 97162; 97165; 97530; 97535; 99285

== ENCOUNTER → 2025-07-03 16:31 | Outpatient (BNV) | payer MEDICARE, SELFPAY | PROVIDERS: Admitting Provider Physician Assistant Medical; Emergency Provider Emergency Medicine; PCP Internal Medicine; Visit Provider Radiology Diagnostic Radiology | DX: R51.9 Headache, unspecified (principal); Z98.1 Arthrodesis status | CPT/HCPCS: 70450; 72040 ==

== ENCOUNTER → 2025-07-03 16:45 | Outpatient (BNV) | payer MEDICARE, SELFPAY | PROVIDERS: Admitting Provider Physician Assistant Medical; Emergency Provider Emergency Medicine; PCP Internal Medicine; Visit Provider Internal Medicine | DX: E87.1 Hypo-osmolality and hyponatremia (principal) | CPT/HCPCS: 93010 ==

== ENCOUNTER → 2025-07-03 16:54 | Outpatient (BNV) | payer MEDICARE, SELFPAY | PROVIDERS: Admitting Provider Physician Assistant Medical; Emergency Provider Emergency Medicine; PCP Internal Medicine; Visit Provider Physician Assistant Medical | DX: E87.1 Hypo-osmolality and hyponatremia (principal) | CPT/HCPCS: 99223; 99232; 99239 ==

== ENCOUNTER → 2025-07-03 16:54 | Outpatient (BNV) | payer MEDICARE, SELFPAY | PROVIDERS: Admitting Provider Physician Assistant Medical; Emergency Provider Emergency Medicine; PCP Internal Medicine; Visit Provider Internal Medicine Hypertension Specialist | DX: E87.1 Hypo-osmolality and hyponatremia (principal) | CPT/HCPCS: 99223 ==

== ENCOUNTER 2025-07-26 13:36 | Outpatient (REF) | payer MEDICARE, SELFPAY ==
--- NOTE | ~2025-07-26 | XR_ITS ---
EXAMINATION: XR CERVICAL SPINE CLINICAL INFORMATION: S/P cervical fusion COMPARISON: Number 09/21/2024 TECHNIQUE: Lateral, bilateral oblique, AP, AP odontoid, Fuchs views of the cervical spine were obtained. FINDINGS: ACDF has been performed C3-C4-C5. Anterior plate screws are intact. There are interbody spacers or graft. Posterior pedicle screws and rods traverse C3-4-5. Hardware appears intact. C5-6 demonstrates moderate disc space narrowing with subtle anterolisthesis and endplate osteophytes. Uncovertebral osteophytes mildly narrow the neural foramina. C6-7 demonstrates mild to moderate disc space narrowing and end plate osteophytes. Uncovertebral osteophytes result in moderate foraminal narrowing C7-T1 is partially obscured but grossly unremarkable. XR/XR cervical spine 5V IMPRESSION: Stable ACDF and posterior surgical fusion C3-C5. Moderate degenerative changes at C5-6 greater than C6-7. Electronically signed by: Sergei Reese MD 07/26/2025 03:11 PM RO
--- OUTSIDE RECORDS SUMMARY | 2025-07-26 18:33 | XMS_ITS | Encounter Summary ---
Author Organization [facility] Address [address] [place] [address] Care Team Providers Care Asphalt Distributor Tender Name Role Phone Quincy Ma MD Primary Care Provider [phone] Encounter Details Date Type Department Care Team (Late st Contact Info) Description 07/22/2025 Lab Requisition [facility] - Main Lab [address] [facility] [place] [address] Sofia Koch MD [address] [place] [address] Vitamin B12 deficiency anemia, unspecified; Vitamin D deficiency, unspecified; Hypo-osmolality and hyponatremia; Chronic embolism and thrombosis of unspecified vein; Fusion of spine, cervical region Social History Tobacco Use Types Packs/Day Years [...] Care Team (Late st Contact Info) Description 09/01/2025 3:30 PM EST Office Visit Orthopedic Surgery - [place] [id number] [address] Iraj Reese MD [address] [address] Scheduled Procedures Name Priority Associated Diagnoses Date/Ti me ARTHROPLASTY HIP TOTAL Primary osteoarthritis of left hip documented as of this encounter Procedures Procedure Name Priority Date/Time Associated Diagnosis Comments COMPLETE BLOOD COUNT Routine 07/23/2025 5:17 AM EST Vitamin B12 deficiency anemia, unspecified Vitamin D deficiency, unspecified Hypo-osmolality and hyponatremia Chronic embolism and thrombosis of unspecified vein Fusion of spine, cervical region BASIC METABOLIC PANEL Routine 07/23/2025 5:17 AM EST Vitamin B12 deficiency anemia, unspecified Vitamin D deficiency, unspecified Hypo-osmolality and hyponatremia Chronic embolism and thrombosis of unspecified vein Fusion of spine, cervical region documented in this encounter Results * (ABNORMAL) Basic metabolic panel (07/23/2025 5:17 AM EST) Sodium 135 133 - 145 mmol/L 07/23/2025 10:12 AM EST [facility] Potassium 5.1 3.5 - 5.5 mmol/L 07/23/2025 10:12 AM [facility] Chloride 98 96 - 110 mmol/L 07/23/2025 10:12 AM [facility] CO2 30 21 - 32 mmol/L 07/23/2025 10:12 AM [facility] Anion Gap 7 3 - 11 07/23/2025 10:12 AM [facility] Glucose 67(L) 70 - 100 mg/dL 07/23/2025 10:12 AM [facility] BUN 14 5 - 25 mg/dL 07/23/2025 10:12 AM [facility] Creatinine 0.61(L) 0.70 - 1.30 mg/dL 07/23/2025 10:12 AM [facility] eGFR 106 >=60 mL/min/1. 73m2 07/23/2025 10:12 AM [facility] Comment:Calculation based on the Chronic Kidney Disease Epidemiology Collaboration (CKD-EPI) equation refit without adjustment for race. BUN/Creatinine Ratio 23.0 07/23/2025 10:12 AM [facility] Calcium 9.2 8.5 - 10.5 mg/dL 07/23/2025 10:12 AM [facility] Blood Venous blood specimen / Unknown Venipuncture / Unknown 07/23/2025 5:17 AM EST 07/23/2025 9:18 AM EST us Sofia Koch MD LAB BLOOD ORDERABLES Final Resul t [facility] [address] [place] [address], [place] [phone] * (ABNORMAL) Complete blood count (07/23/2025 5:17 AM EST) WBC 4.5(L) 4.8 - 10.8 [facility] HEMETOLOGY METHOD 07/23/2025 9:19 AM [facility] RBC 3.80(L) 4.50 - 5.50 M/mcL LAB HEMETOLOGY METHOD 07/23/2025 9:19 AM [facility] Hemoglobin 12.7(L) 13.5 - 17.5 g/dL LAB HEMETOLOGY METHOD 07/23/2025 9:19 AM [facility] Hematocrit 38.6(L) 42.0 - 54.0 % LAB HEMETOLOGY METHOD 07/23/2025 9:19 AM [facility] MCV 102.7(H) 79.0 - 98.0 FL LAB HEMETOLOGY METHOD 07/23/2025 9:19 AM [facility] MCH 33.8(H) 27.0 - 32.0 pcg LAB HEMETOLOGY METHOD 07/23/2025 9:19 AM [facility] MCHC 32.9 32.0 - 37.0 g/dL LAB HEMETOLOGY METHOD 07/23/2025 9:19 AM [facility] RDW 14.2 11.0 - 15.0 % LAB HEMETOLOGY METHOD 07/23/2025 9:19 AM [facility] Platelets 286 130 - 400 [facility] LAB HEMETOLOGY METHOD 07/23/2025 9:19 AM [facility] MPV 9.6 7.0 - 11.0 FL LAB HEMETOLOGY METHOD 07/23/2025 9:19 AM [facility] NRBC 0.0 <1.0 % LAB HEMETOLOGY METHOD 07/23/2025 9:19 AM [facility] NRBC Absolute 0.00 <0.10 K/mcL LAB HEMETOLOGY METHOD 07/23/2025 9:19 AM [facility] Blood Venous blood specimen / Unknown Venipuncture / Unknown 07/23/2025 5:17 AM EST 07/23/2025 9:18 AM EST Sofia Koch MD LAB BLOOD ORDERABLES Final Resul t [facility] [address] [place] [address], documented in this encounter Visit Diagnoses Diagnosis Vitamin B12 deficiency anemia, unspecified Vitamin D deficiency, unspecified Hypo-osmolality and hyponatremia Chronic embolism and thrombosis of unspecified vein Fusion of spine, cervical region documented in this encounter Additional Health Concerns Assessment Noted Time PHQ-9 Depression Total Score: 0 06/07/20 25 4:32 PM EDT documented as of this encounter Care Teams Asphalt Distributor Tender Relationship Specialty Start Date End Date Quincy Ma MD [address] [place] [id number] PCP - General 12/02/23 documented as of this encounter
--- OUTSIDE RECORDS SUMMARY | 2025-07-26 18:33 | XMS_ITS | Clinical Summary ---
Author Organization [address] [place] [address] Address [address] [place] [address] Phone Care Team Providers Care Intelligence Operations Specialist Name Role Phone Quincy Ma MD Primary Care Provider [phone] Allergies Active Allergy Reactions Criticality Noted Date Comments Lisinopril Cough 04/16/2025 Medications apixaban (ELIQUIS) 5 mg tabletIndicatio ns:afib Take 1 tablet (5 mg total) by mouth 2 (two) times a day. 60 each 06/08/2025 Active gabapentin (NEURONTIN) 300 mg capsule Take 1 capsule (300 mg total) by mouth every 8 (eight) hours. 90 each 06/08/2025 Active senna (SENOKOT) 8.6 mg tablet Take 2 tablets (17.2 mg total) by mouth at bedtime. 60 each 11 06/08/2025 06/08/20 26 Active acetaminophen (TYLENOL) 500 mg tabletIndicatio ns:pain Take 2 tablets (1,000 mg total) by mouth every 8 (eight) hours. 30 tablet 06/08/2025 07/08/20 25 ergocalciferol (VITAMIN D-2) 1,250 mcg (50,000 unit) capsule Take 1 capsule (50,000 Units total) by mouth 1 (one) time per week. 4 each 06/09/2025 07/09/20 25 Active Problems Problem Noted Date Diagnosed Date Cervical myelopathy (CMS/HCC V24, CMS/HCC V28) 0 05/28/2025 Constipation 05/25/2025 Assessment & [...] Plan (05/27/2025 1:12 PM EDT): - Consult COMMUNICABLE DISEASE SPECIALIST, modified barium swallow done, IDDSI level 2 and level 4 mildly thickened pur ed diet at this time. Discontinued fluids. Assessment & Plan (05/26/2025 1:13 PM EDT): - Consult COMMUNICABLE DISEASE SPECIALIST yesterday, currently NPO. They will continue to follow. Currently on D5 LR. Patient has moderate pharyngeal dysphagia. Anticipate eventual improvement. Continue meds. Assessment & Plan (05/25/2025 9:48 AM EDT): - Consult COMMUNICABLE DISEASE SPECIALIST - NPO - D5 w/ LR 50 mL/hr for maintenance IVF Assessment & Plan (05/24/2025 12:52 PM EDT): - Consult COMMUNICABLE DISEASE SPECIALIST - NPO Edema of spinal cord ([facility] V24, [facility] V28) 05/22/2025 Assessment & Plan (05/27/2025 1:12 [...] mainly in the upper extremities. Workup at [facility] was notable for MRI of cervical [...] foraminal stenosis. Ultimately, patient was transferred to [facility] for further evaluation by neurology. On my [...] for severe pain DVT (deep venous thrombosis) ([facility] V24, CMS/H CC V28) 05/22/2025 Assessment & [...] Full dose Eliquis started Pending approval from [facility] facility today Assessment & Plan (05/26/2025 1:13 [...] is cleared for anticoagulation. Pending approval from [facility] facility today Assessment & Plan (05/25/2025 7:58 AM EDT): Disc bulge at C3-C4, C4-C5, C5-C6 causing spinal canal and neural foraminal stenosis. Disc bulge at L2-L3, L3-L4, L4-5 with spinal canal and neural foraminal stenosis. - Consult to neurosurgery - Consult to neurology - q4 neuro checks - q4h vital signs Assessment [...] Encounters Date Type Department Care Team Description 07/22/2025 Lab Requisition [facility] Lab [address] [place] [address] Sofia Koch MD Vitamin B12 deficiency anemia, unspecified; Vitamin D deficiency, unspecified; Hypo-osmolality and hyponatremia; Chronic embolism and thrombosis of unspecified vein; Fusion of spine, cervical region 07/19/2025 11:00 AM EST Office Visit Neurosurgery [address] [place] [address] Parker Seay MD S/P cervical spinal fusion (Primary Dx) 07/19/2025 Telephone Orthopedic Surgery - [place] [address] [facility] [address] [place] [phone] Shira Coe MA 07/15/2025 Lab Requisition [facility] Lab [address] [facility] [place] [employer] [place] [address] Sofia Koch MD Fusion of spine, cervical region; Hypo-osmolality and hyponatremia; Vitamin D deficiency, unspecified; Chronic embolism and thrombosis of unspecified vein; Vitamin B12 deficiency anemia, unspecified 07/09/2025 Lab Requisition [facility] Lab [address] [facility] [place] [phone] Sofia Koch MD Fusion of spine, cervical region; Hypo-osmolality and hyponatremia; Vitamin D deficiency, unspecified; Chronic embolism and thrombosis of unspecified vein; Vitamin B12 deficiency anemia, unspecified 06/08/2025 11:15 AM EDT Office Visit Neurosurgery [facility] [address] [place] [phone] Sandy Storm NP Status post cervical spinal fusion (Primary Dx) 06/01/2025 Plan of Care Documentation [facility] [address] [place] [phone] 05/31/2025 Telephone Neurosurgery [facility] [address] [place] [phone] Noe Zhao MA 05/28/2025 2:22 PM EDT - 06/09/2025 11:00 AM EDT Hospital Encounter [facility] [address] [place] [phone] Angelica Vogt DO Discharge Disposition: Home or Self Care 05/27/2025 Telephone [facility] [address] [place] [phone] Noe Zhao MA 05/23/2025 10:16 AM EDT Anesthesia Event [facility] OR [address] [place] [address], [place] [phone] Bolivar España DO 05/23/2025 9:20 AM EDT - 05/23/2025 1:15 PM EDT Surgery [facility] OR [address] [place] [address], [place] [phone] Parker Seay MD FUSION CERVICAL POSTERIOR WITH DECOMPRESSION C3-5 05/22/2025 3:33 AM EDT - 05/28/2025 1:44 PM EDT Hospital Encounter [facility] CV Surg Card 8-9 [address] [place] [address] Feliciano Kelly MD Kapoor, Rachna, MD Ali, Syed, MD Jacob, Dennis P, MD Acute deep vein thrombosis (DVT) of left peroneal vein (CMS/HCC V24, CMS/HCC V28) (Primary Dx); Primary osteoarthritis of left hip Discharge Disposition: Rehab Facility 05/21/2025 5:53 PM EDT - 05/22/2025 2:57 AM EDT Emergency [facility] Emergency [address] [place] [address] Maranda Murillo MD Kokkinos, Erika, MD Weakness of both legs (Primary Dx); Leg swelling; Acute deep vein thrombosis (DVT) of left peroneal vein (CMS/HCC V24, CMS/HCC V28); Weakness of both arms; Change in voice; Edema of spinal cord (CMS/HCC V24, CMS/HCC V28) Discharge Disposition: Short Term Hospital 04/27/2025 Telephone Orthopedic Surgery - [place] [address] [facility] [address] [place] [phone] Shira Coe MA from Last 3 Months Surgical History Surgery [...] Sign Reading Time Taken Comments Blood Pressure 166/86 07/19/2025 10:35 AM EST Pulse 66 07/19/2025 10:35 AM EST Temperature 36.4 C (97.5 F) 07/19/2025 10:35 AM EST Respiratory Rate 16 06/09/2025 11:00 AM EDT Oxygen Saturation 100% 06/09/2025 11:00 AM EDT Inhaled Oxygen Concentration - - Weight 67.6 kg (149 lb) 07/19/2025 10:35 AM EST Height 175.3 cm (5' 9 ) 07/19/2025 10:35 AM EST Body Mass Index 22 07/19/2025 10:35 AM EST Plan of Treatment Upcoming Encounters Date Type Department Care Team (Late st Contact Info) Description 09/01/2025 3:30 PM EST Office Visit Orthopedic Surgery - [place] [address] [phone] Iraj Reese MD [address] [address] Scheduled Procedures Name Priority Associated Diagnoses Date/Ti [...] 2025 , 05/04/2023, 10/18/2022, Additional history exists Falls Risk Assessment 06/08/2026 06/08/2025 Social Influencers of Health Screening 06/08/2026 06/08/2025 Hypertension/CHF/CAD Annual BMP Blood Test 07/23/2026 07/23/2025, 07/16/2025, 07/09/2025, Additional history exists Zoster Vaccines Completed 08/13/2020, 06/05/2020 RSV Immunization [...] this topic Medical Devices Implanted Type Area Dispatcher Motor Vehicle Device Identifier Shelf Expiration Date Model / Serial / Lot Kit Surgiflo W 2000 Units Ster Lyo - S- - [id number] Implanted:Qt y: 2 on 05/23/2025 by Parker Seay MD at [facility] Hemostasis N/A: Spine Cervical [employer] 12/30/2025 2994 / - / [id number] Chips Bio Cancellous 1-4mm Particle Range 5ml - [id number] - [id number] Implanted:Qt y: 1 on 05/23/2025 by Parker Seay MD at [facility] Orthobiologics Bone N/A: Spine Cervical [employer] 04/08/2030 [id number] / [id number] / N/A Vesuvius 100 Dbm Bone Putty 5cc - [id number] - [id number] Implanted:Qt y: 1 on 05/23/2025 by Parker Seay MD at [facility] [employer] Bone N/A: Spine Cervical [employer] SP[employer]- K2M 12/31/2027 [id number] 0DP / [id number] / [id number] Vikos Cervical 14x14.5x6mm 7d - [id number] - [id number] Implanted:Qt y: 1 on 05/23/2025 by Parker Seay MD at [facility] [employer]ics N/A: Spine Cervical [employer] SP[employer] 01/04/2029 [id number] 06L7 / [id number] / - Vikos Cervical 14x14.5x7mm 7d - [id number] - [id number] Implanted:Qt y: 1 on 05/23/2025 by Parker Seay MD at [facility] [employer] N/A: Spine Cervical [employer] SPINE 07/20/2029 [id number] 07L7 / [id number] / N?A Screw Spinal Leupp Nonstrl - Sn/A - [id number] Implanted:Qt y: 6 on 05/23/2025 by Parker Seay MD at [facility] Spinal Hardware N/A: Spine Cervical [employer]- K2M [id number] 1 / N/A / N/A Plate Anterior Cervical Constr 2 Level 40mm - S- - [id number] Implanted:Qt y: 1 on 05/23/2025 by Parker Seay MD at [facility] Spinal Hardware N/A: Spine Cervical [employer]- K2M [id number] 0V / - / - Screw Va Self-Start 4x14mm - S- - [id number] Implanted:Qt y: 6 on 05/23/2025 by Parker Seay MD at [facility] Spinal Hardware N/A: Spine Cervical [employer] SP[employer]- K2M [id number] 4DA / - / - Plate Anterior Cervical Constr 2 Level 40mm - Sn?A - [id number] Implanted:Qt y: 1 on 05/23/2025 by Parker Seay MD at [facility] Spinal Hardware N/A: Spine Cervical [employer] SP[employer]- K2M [id number] / N?A / N?A Polyaxial Screw 3.5x14mm - Sn/A - [id number] Implanted:Qt y: 3 on 05/23/2025 by Parker Seay MD at [facility] Spinal Hardware N/A: Spine Cervical [employer] SP[employer]- K2M [id number] 4 / N/A / N/A Polyaxial Screw 3.5x12mm - Sn/A - [id number] Implanted:Qt y: 3 on 05/23/2025 by Parker Seay MD at [facility] Spinal Hardware N/A: Spine Cervical [employer] SPINE- K2M [id number] 2 / N/A / N/A Contoured Lai 3.5x35mm - Sn/A - [id number] Implanted:Qt y: 2 on 05/23/2025 by Parker Seay MD at [facility] Spinal Hardware N/A: Spine Cervical [employer] SP[employer]- K2M [id number] 5 / N/A / N/A Procedures Procedure Name Priority Date/Time Associated Diagnosis Comments BASIC METABOLIC PANEL Routine 07/23/2025 5:17 AM EST Vitamin B12 deficiency anemia, unspecified Vitamin D deficiency, unspecified Hypo-osmolality and hyponatremia Chronic embolism and thrombosis of unspecified vein Fusion of spine, cervical region COMPLETE BLOOD COUNT Routine 07/23/2025 5:17 AM EST Vitamin B12 deficiency anemia, unspecified Vitamin D deficiency, unspecified Hypo-osmolality and hyponatremia Chronic embolism and thrombosis of unspecified vein Fusion of spine, cervical region BASIC METABOLIC PANEL Routine 07/16/2025 5:15 AM EST Fusion of spine, cervical region Hypo-osmolality and hyponatremia Vitamin D deficiency, unspecified Chronic embolism and thrombosis of unspecified vein Vitamin B12 deficiency anemia, unspecified COMPLETE BLOOD COUNT Routine 07/16/2025 5:15 AM EST Fusion of spine, cervical region Hypo-osmolality and hyponatremia Vitamin D deficiency, unspecified Chronic embolism and thrombosis of unspecified vein Vitamin B12 deficiency anemia, unspecified VITAMIN D 25 HYDROXY Routine 07/09/2025 6:22 AM EST Fusion of spine, cervical region Hypo-osmolality and hyponatremia Vitamin D deficiency, unspecified Chronic embolism and thrombosis of unspecified vein Vitamin B12 deficiency anemia, unspecified VITAMIN B12 AND FOLATE Routine 6:22 AM EST Fusion of spine, cervical region Hypo-osmolality and hyponatremia Vitamin D deficiency, unspecified Chronic embolism and thrombosis of unspecified vein Vitamin B12 deficiency anemia, unspecified COMPREHENSIVE METABOLIC PANEL Routine 07/09/2025 6:22 AM EST Fusion of spine, cervical region Hypo-osmolality and hyponatremia Vitamin D deficiency, unspecified Chronic embolism and thrombosis of unspecified vein Vitamin B12 deficiency anemia, unspecified COMPLETE BLOOD COUNT Routine 07/09/2025 6:22 AM EST Fusion of spine, cervical region Hypo-osmolality and hyponatremia Vitamin D deficiency, unspecified Chronic embolism and thrombosis of unspecified vein Vitamin B12 deficiency anemia, unspecified XR BARIUM SWALLOW WITH VIDEO AND SPEECH Routine 06/07/2025 10:21 AM EDT COMMUNICABLE DISEASE SPECIALIST VIDEOFLUOROSCOPIC SWALLOW STUDY WITH BARIUM Routine 06/07/2025 [...] AND SPEECH Routine 05/27/2025 11:31 AM EDT COMMUNICABLE DISEASE SPECIALIST VIDEOFLUOROSCOPIC SWALLOW STUDY WITH BARIUM Routine 05/27/2025 [...] AND SPEECH Routine 05/24/2025 11:31 AM EDT COMMUNICABLE DISEASE SPECIALIST VIDEOFLUOROSCOPIC SWALLOW STUDY WITH BARIUM Routine 05/24/2025 [...] EDT MYOSITIS MARKER PANEL 3 Routine 05/22/20 25 7:[address] HEAD WO CONTRAST [...] 1 VIEW STAT 05/21/2025 6:48 PM EDT from Last 3 Months Results * (ABNORMAL) Complete blood count (07/23/2025 5:17 AM EST) Only the most recent of10 resultswithin the time period is included. WBC 4.5(L) 4.8 - 10.8 K/mcL LAB HEMETOLOGY METHOD 07/23/2025 9:19 AM [facility] RBC 3.80(L) 4.50 - 5.50 M/mcL LAB HEMETOLOGY METHOD 07/23/2025 9:19 AM [facility] LAB Hemoglobin 12.7(L) 13.5 - 17.5 g/dL LAB HEMETOLOGY METHOD 07/23/2025 9:19 AM [facility] LAB Hematocrit 38.6(L) 42.0 - 54.0 % LAB HEMETOLOGY METHOD 07/23/2025 9:19 AM [facility] LAB MCV 102.7(H) 79.0 - 98.0 FL LAB HEMETOLOGY METHOD 07/23/2025 9:19 AM EST [facility] LAB MCH 33.8(H) 27.0 - 32.0 pcg LAB HEMETOLOGY METHOD 07/23/2025 9:19 AM EST [facility] LAB MCHC 32.9 32.0 - 37.0 g/dL LAB HEMETOLOGY METHOD 07/23/2025 9:19 AM [facility] RDW 14.2 11.0 - 15.0 % LAB HEMETOLOGY METHOD 07/23/2025 9:19 AM EST [facility] LAB Platelets 286 130 - 400 K/mcL LAB HEMETOLOGY METHOD 07/23/2025 9:19 AM [facility] MPV 9.6 7.0 - 11.0 FL LAB HEMETOLOGY METHOD 07/23/2025 9:19 AM [facility] NRBC 0.0 <1.0 % LAB HEMETOLOGY METHOD 07/23/2025 9:19 AM [facility] LAB NRBC Absolute 0.00 <0.10 K/mcL LAB HEMETOLOGY METHOD 07/23/2025 9:19 AM [facility] Blood Venous blood specimen / Unknown Venipuncture / Unknown 07/23/2025 5:17 AM EST 07/23/2025 9:18 AM EST us Sofia Koch MD LAB BLOOD ORDERABLES Final Resul t [facility] [address] [place] [address], * (ABNORMAL) Basic metabolic panel (07/23/2025 5:17 AM EST) Only the most recent of10 resultswithin the time period is included. Sodium 135 133 - 145 mmol/L 07/23/2025 10:12 AM EST [facility] Potassium 5.1 3.5 - 5.5 mmol/L 07/23/2025 10:12 AM [facility] Chloride 98 96 - 110 mmol/L 07/23/2025 10:12 AM [facility] CO2 30 21 - 32 mmol/L 07/23/2025 10:12 AM [facility] Anion Gap 7 3 - 11 07/23/2025 10:12 AM [facility] Glucose 67(L) 70 - 100 mg/dL 07/23/2025 10:12 AM [facility] BUN 14 5 - 25 mg/dL 07/23/2025 10:12 AM [facility] Creatinine 0.61(L) 0.70 - 1.30 mg/dL 07/23/2025 10:12 AM [facility] eGFR 106 >=60 mL/min/1. 73m2 07/23/2025 10:12 AM [facility] Comment:Calculation based on the Chronic Kidney Disease Epidemiology Collaboration (CKD-EPI) equation refit without adjustment for race. BUN/Creatinine Ratio 23.0 07/23/2025 10:12 AM [facility] Calcium 9.2 8.5 - 10.5 mg/dL 07/23/2025 10:12 AM [facility] Blood Venous blood specimen / Unknown Venipuncture / Unknown 07/23/2025 5:17 AM EST 07/23/2025 9:18 AM EST us Sofia Koch MD LAB BLOOD ORDERABLES Final Resul t [facility] [address] [place] [address], * Vitamin B12 and folate (07/09/2025 6:22 AM EST) Vitamin B-12 733 250 - 900 pcg/mL LAB CHEMISTRY METHOD 07/09/2025 12:14 PM EST [facility] Folate 11.1 2.8 - 17.0 ng/ml LAB CHEMISTRY METHOD 07/09/2025 12:14 PM [facility] Blood Venous blood specimen / Unknown Venipuncture / Unknown 07/09/2025 6:22 AM EST 07/09/2025 10:45 AM EST us Sofia Koch MD LAB BLOOD ORDERABLES Final Resul t Performing Organization Address [facility]/ZIP Co de Phone Number [facility] [address] [place] [address], [place] [phone] * Vitamin D 25 hydroxy (07/09/2025 6:22 AM EST) Vit D, 25-Hydroxy 76.4 30.0 - 80.0 ng/mL LAB CHEMISTRY METHOD 07/09/2025 1:03 PM EST [facility] Blood Venous blood specimen / Unknown Venipuncture / Unknown 07/09/2025 6:22 AM EST 07/09/2025 10:45 AM EST us Sofia Kcoh MD LAB BLOOD ORDERABLES Final Resul t Performing Organization Address [facility]/ZIP Co de Phone Number [facility] [address] [place] [address], [place] [phone] * (ABNORMAL) Comprehensive metabolic panel (07/09/2025 6:22 AM EST) Only the most recent of3 resultswithin the time period is included. Sodium 134 133 - 145 mmol/L LAB CHEMISTRY METHOD 07/09/2025 12:14 PM EST [facility] Potassium 5.1 3.5 - 5.5 mmol/L LAB CHEMISTRY METHOD 07/09/2025 12:14 PM [facility] Chloride 99 96 - 110 mmol/L LAB CHEMISTRY METHOD 07/09/2025 12:14 PM [facility] CO2 31 21 - 32 mmol/L LAB CHEMISTRY METHOD 07/09/2025 12:14 PM [facility] Anion Gap 4 3 - 11 LAB CHEMISTRY METHOD 07/09/2025 12:14 PM [facility] Glucose 78 70 - 100 mg/dL LAB CHEMISTRY METHOD 07/09/2025 12:14 PM [facility] BUN 12 5 - 25 mg/dL LAB CHEMISTRY METHOD 07/09/2025 12:14 PM [facility] Creatinine 0.54(L) 0.70 - 1.30 mg/dL LAB CHEMISTRY METHOD 07/09/2025 12:14 PM [facility] eGFR 111 >=60 mL/min/1. 73m2 LAB CHEMISTRY METHOD 07/09/2025 12:14 PM [facility] Comment:Calculation based on the Chronic Kidney Disease Epidemiology Collaboration (CKD-EPI) equation refit without adjustment for race. BUN/Creatinine Ratio 22.2 LAB CHEMISTRY METHOD 07/09/2025 12:14 PM [facility] Calcium 9.1 8.5 - 10.5 mg/dL LAB CHEMISTRY METHOD 07/09/2025 12:14 PM [facility] AST (SGOT) 9(L) 10 - 42 unit/L LAB CHEMISTRY METHOD 07/09/2025 12:14 PM [facility] ALT (SGPT) 23 10 - 60 unit/L LAB CHEMISTRY METHOD 07/09/2025 12:14 PM [facility] Alkaline Phosphatase 93 42 - 121 unit/L LAB CHEMISTRY METHOD 07/09/2025 12:14 PM [facility] Total Protein 5.5(L) 6.0 - 8.0 g/dL LAB CHEMISTRY METHOD 07/09/2025 12:14 PM [facility] Albumin 3.2 3.2 - 5.0 g/dL LAB CHEMISTRY METHOD 07/09/2025 12:14 PM EST [facility] Total Bilirubin 0.6 0.0 - 1.4 mg/dL LAB CHEMISTRY METHOD 07/09/2025 12:14 PM EST [facility] Blood Venous blood specimen / Unknown Venipuncture / Unknown 07/09/2025 6:22 AM EST 07/09/2025 10:45 AM EST us Sofia Koch MD LAB BLOOD ORDERABLES Final Resul t [facility] [address] [place] [address], [place] [phone] * XR Barium Swallow with Video and [...] Signed Date: 06/08/2025 15:16 ET Workstation ID: [id number] Transcribed By: Self Edit Transcribed Date: 06/07/2025 11:51 ET Resident/PA/COMPUTER LAB ASSISTANT: Anny Manzano Narrative 06/08/2025 3:16 PM EDT [...] Signed Date: 06/08/2025 15:16 ET Workstation ID: [id number] Transcribed By: Self Edit Transcribed Date: 06/07/2025 11:51 ET Resident/PA/COMPUTER LAB ASSISTANT: Anny Manzano us Angelica Vogt DO IMG FLUOROSCOPY PROCEDURE S Final Result * COMMUNICABLE DISEASE SPECIALIST videofluoroscopic swallow study with barium (06/07/2025 10:00 AM EDT) Only the most recent of3 resultswithin the time period is included. Sveta Cervantes, ACACIA-COMMUNICABLE DISEASE SPECIALIST - 06/07/2025 10:00 AM EDT Sveta Guy CCC-COMMUNICABLE DISEASE SPECIALIST 06/07/2025 5:27 PM [facility] Modified Barium Swallow Study Patient Name: [...] spinal fusion. Previous MBS on 05/27 at Section reported The patient presents with a grossly [...] baseline dysphagia. Previous MBS on 05/27 at Section reported The patient presents with a grossly [...] Respiratory status: Room air Positioning During Eval/Treatment: [facility] chair Behaviors During Eval/Treatment: WFL Oral/Motor: Oral [...] 1- Material does not enter airway. Other ALEK Clark, Chino Menjivar, Shalonda VOGEL, YUKI Rodriguez, & YUKI Gill. A Penetration-Aspiration Scale. Dysphagia 11:93-98, 1995. Compensatory Strategies Trialed: Slow Rate, Small bites/sips, Alternating Solids and Liquids, and Hard Swallow Education: Education provided: Diet Recommendations , Aspiration Precautions, Oral Hygiene , Swallow Strategies, and MBS video Verbal Understanding and Needs Practice / Reinforcement Sveta Guy, [facility]-COMMUNICABLE DISEASE SPECIALIST 06/07/2025 Please note that swallowing is a dynamic process and the skills reflected during this brief assessment may not necessarily represent the patient's swallowing function during an entire meal. Ongoing clinical judgment is strongly advised. [1] Past Medical History: Diagnosis Date Hyperlipidemia 10/18/2022 DX:Hyperlipidemia [2] Past Surgical History: Procedure Laterality Date CATARACT EXTRACTION PROCEDURE: HISTORICAL CATARACT REMOVAL Angelica Vogt DO COMMUNICABLE DISEASE SPECIALIST ORDERABLES Final Res ult * (ABNORMAL) CBC auto differential (05/29/2025 5:36 AM EDT) Only the most recent of2 resultswithin the time period is included. WBC 8.9 4.8 - 10.8 K/mcL LAB HEMETOLOGY METHOD 05/29/2025 6:16 AM [facility] RBC 3.80(L) 4.50 - 5.50 M/mcL LAB HEMETOLOGY METHOD 05/29/2025 6:16 AM [facility] Hemoglobin 12.6(L) 13.5 - 17.5 g/dL LAB HEMETOLOGY METHOD 05/29/2025 6:16 AM [facility] Hematocrit 38.7(L) 42.0 - 54.0 % LAB HEMETOLOGY METHOD 05/29/2025 6:16 AM [facility] MCV 100.8(H) 79.0 - 98.0 FL LAB HEMETOLOGY METHOD 05/29/2025 6:16 AM [facility] MCH 32.8(H) 27.0 - 32.0 pcg LAB HEMETOLOGY METHOD 05/29/2025 6:16 AM [facility] MCHC 32.6 32.0 - 37.0 g/dL LAB HEMETOLOGY METHOD 05/29/2025 6:16 AM [facility] RDW 13.9 11.0 - 15.0 % LAB HEMETOLOGY METHOD 05/29/2025 6:16 AM [facility] Platelets 207 130 - 400 K/mcL LAB HEMETOLOGY METHOD 05/29/2025 6:16 AM [facility] MPV 9.9 7.0 - 11.0 FL LAB HEMETOLOGY METHOD 05/29/2025 6:16 AM [facility] NRBC 0.0 <1.0 % LAB HEMETOLOGY METHOD 05/29/2025 6:16 AM [facility] NRBC Absolute 0.00 <0.10 K/mcL LAB HEMETOLOGY METHOD 05/29/2025 6:16 AM [facility] Neutrophils Relative 77.1 % LAB HEMETOLOGY METHOD 05/29/2025 6:16 AM [facility] Lymphocytes Relative 15.5 % LAB HEMETOLOGY METHOD 05/29/2025 6:16 AM [facility] Monocytes Relative 6.7 % LAB HEMETOLOGY METHOD 05/29/2025 6:16 AM [facility] Eosinophils Relative 0.1 % LAB HEMETOLOGY METHOD 05/29/2025 6:16 AM [facility] Basophils Relative 0.1 % LAB HEMETOLOGY METHOD 05/29/2025 6:16 AM [facility] Immature Granulocytes Relative 0.5 % LAB HEMETOLOGY METHOD 05/29/2025 6:16 AM [facility] Neutrophils Absolute 6.83 1.50 - 7.00 K/mcL LAB HEMETOLOGY METHOD 05/29/2025 6:16 AM [facility] Lymphocytes Absolute 1.37 1.00 - 5.00 K/mcL LAB HEMETOLOGY METHOD 05/29/2025 6:16 AM [facility] Monocytes Absolute 0.59 0.20 - 1.00 K/mcL LAB HEMETOLOGY METHOD 05/29/2025 6:16 AM EDT [facility] Eosinophils Absolute 0.01 0.00 - 0.50 K/mcL LAB HEMETOLOGY METHOD 05/29/2025 6:16 AM EDT [facility] Basophils Absolute 0.01 0.00 - 0.20 K/[facility] [place] LAB HEMETOLOGY METHOD 05/29/2025 6:16 AM EDT [facility] Immature Granulocytes Absolute 0.04(H) 0.00 - 0.03 K/[facility] [place] LAB HEMETOLOGY METHOD 05/29/2025 6:16 AM EDT [facility] Blood Venous blood specimen / Unknown Venipuncture / Unknown 05/29/2025 5:36 AM EDT 05/29/2025 6:08 AM EDT us Miguel CORMIER LAB BLOOD ORDERABLES Final Resu lt [facility] [address] [place] [address], [place] [phone] * POCT Glucose, blood (05/27/2025 3:04 PM EDT) [facility] Glucose POCT 102 70 - 199 mg/dL 05/27/2025 3:05 PM EDT [facility] Comment: Fasting Reference Range: 70-99 mg/dL Non-Fasting Reference Range: 70-199 mg/dL Blood Capillary blood specimen / Unknown 05/27/2025 3:04 PM EDT 05/27/2025 3:06 PM EDT Lio Alvarez MD LAB POINT OF CARE TE ST DOCKED DEVICE UNSOLICITED RESULTS Final Result Performing Organization Address City/[facility]/ZIP Co de Phone Number [facility] [address] [place] [address], [place] [phone] * Activated Partial Thromboplastin Time - STAT (05/26/2025 12:37 PM EDT) Only the most recent of2 resultswithin the time period is included. aPTT 29.1 25.0 - 37.0 sec LAB COAGULATION METHOD 05/26/2025 1:29 PM EDT [facility] Blood Venous blood specimen / Unknown Venipuncture / Unknown 05/26/2025 12:37 PM EDT 05/26/2025 1:02 PM EDT us Lio Alvarez MD LAB BLOOD ORDERABLES Final Res ult Performing Organization Address [facility]/ZIP Co de Phone Number [facility] [address] [place] [address], [place] [phone] * Prothrombin Time with INR - STAT (05/26/2025 12:37 PM EDT) Only the most recent of2 resultswithin the time period is included. Protime 12.6 10.5 - 13.3 sec LAB COAGULATION METHOD 05/26/2025 1:29 PM EDT [facility] INR 1.1 0.8 - 1.1 LAB COAGULATION METHOD 05/26/2025 1:29 PM EDT [facility] Blood Venous blood specimen / Unknown Venipuncture / Unknown 05/26/2025 12:37 PM EDT 05/26/2025 1:02 PM EDT Narrative [facility] - 05/26/2025 1:29 PM EDT Std. Therapy 2.0-3.0 INR High Dose Therapy 3.0-4.5 INR Ranges may vary depending on clinical indications and protocol. us Lio Alvarez MD LAB BLOOD ORDERABLES Final Res ult Performing Organization Address [facility]/ZIP Co de Phone Number [facility] [address] [place] [address], [place] [phone] * (ABNORMAL) Hepatic Function Panel - STAT (05/26/2025 9:27 AM EDT) Only the most recent of2 resultswithin the time period is included. ALT (SGPT) 25 7 - 52 unit/L LAB CHEMISTRY METHOD 05/26/2025 12:26 PM EDT [facility] AST (SGOT) 23 5 - 40 unit/L LAB CHEMISTRY METHOD 05/26/2025 12:26 PM EDT [facility] Alkaline Phosphatase 75 34 - 104 unit/L LAB CHEMISTRY METHOD 05/26/2025 12:26 PM EDT [facility] Bilirubin, Direct 0.1 0.0 - 0.2 mg/dL LAB CHEMISTRY METHOD 05/26/2025 12:26 PM EDT [facility] Total Bilirubin 0.7 0.3 - 1.0 mg/dL LAB CHEMISTRY METHOD 05/26/2025 12:26 PM EDT [facility] Total Protein 5.9(L) 6.4 - 8.5 g/dL LAB CHEMISTRY METHOD 05/26/2025 12:26 PM EDT [facility] Albumin 3.8 3.5 - 5.0 g/dL LAB CHEMISTRY METHOD 05/26/2025 12:26 PM EDT [facility] Globulin, Total 2.1(L) 2.3 - 3.5 g/dL LAB CHEMISTRY METHOD 05/26/2025 12:26 PM EDT [facility] A/G Ratio 1.8 LAB CHEMISTRY METHOD 05/26/2025 12:26 PM EDT [facility] Blood Venous blood specimen / Unknown Venipuncture / Unknown 05/26/2025 9:27 AM EDT 05/26/2025 9:56 AM EDT us Lio Alvarez MD LAB BLOOD ORDERABLES Final Res ult [facility] [address] [place] [address], [place] [phone] * Vascular US duplex lower extremity venous [...] Signed Date: 05/25/2025 09:25 ET Workstation ID: [id number] Transcribed By: Self Edit Transcribed Date: 05/25/2025 [...] Signed Date: 05/25/2025 09:25 ET Workstation ID: [id number] Transcribed By: Self Edit Transcribed Date: 05/25/2025 09:22 ET us Pati Shelton MD CV VASCULAR PROCEDURES Final Re sult * Magnesium (05/25/2025 7:55 AM EDT) Only the most recent of4 resultswithin the time period is included. Magnesium 2.2 1.7 - 2.8 mg/dL LAB CHEMISTRY METHOD 05/25/2025 8:52 AM EDT [facility] Blood Venous blood specimen / Unknown Venipuncture / Unknown 05/25/2025 7:55 AM EDT 05/25/2025 8:19 AM EDT us Pati Shelton MD LAB BLOOD ORDERABLES Final Resu lt [facility] [address] [place] [address], [place] [phone] * XR Cervical Spine 2-3 Views (05/23/2025 2:00 PM EDT) Anatomical Region Laterality Modality Spine, C-spine Radiographic Leana ging 05/23/2025 2:05 PM EDT Impressions 05/23/2025 2:05 PM EDT Operative -------- FINAL REPORT -------- Dictated By: Kurt Bhatia Dictated Date: 05/23/2025 14:05 ET Assigned Physician: Kurt Bhatia Reviewed and Electronically Signed By: Kurt Bhatia Signed Date: 05/23/2025 14:05 ET Workstation ID: [id number] Transcribed By: Self Edit Transcribed Date: 05/23/2025 [...] Signed Date: 05/23/2025 14:05 ET Workstation ID: [id number] Transcribed By: Self Edit Transcribed Date: 05/23/2025 14:05 ET Parker Seay MD IMG XR PROCEDURES Final Result * XR Fluoro Up To 1 Hour (Statistics)(No Report) (05/23/2025 2:00 PM EDT) Narrative RIS PACS/VR - 05/23/2025 2:00 PM EDT This order has been auto-finalized and does not contain a result. us Parker GALEAS FLUOROSCOPY PROCEDURES Final Result RIS PACS/VR * ABO Rh (05/23/2025 10:13 AM EDT) ABO Group O 05/23/2025 11:26 AM EDT [facility] Rh Type Positive 05/23/2025 11:26 AM EDT [facility] Blood Venous blood specimen / Unknown Venipuncture / Unknown 05/23/2025 10:13 AM EDT 05/23/2025 10:29 AM EDT Parker Seay MD LAB BLOOD BANK TEST ORDERABLES F inal Result [facility] [address] [place] [address], [place] [phone] * Type and screen (05/23/2025 10:06 AM EDT) ABO Group O 05/23/2025 11:26 AM EDT [facility] Rh Type Positive 05/23/2025 11:26 AM EDT [facility] Antibody Screen Negative 05/23/2025 11:26 AM EDT [facility] Blood Venous blood specimen / Unknown Venipuncture / Unknown 05/23/2025 10:06 AM EDT 05/23/2025 10:29 AM EDT Bolivar España DO LAB BLOOD BANK TEST ORDERAB LES Final Result [facility] [address] [place] [address], [place] [phone] * Heparin and low molecular weight anti Xa level (05/22/2025 10:45 PM EDT) Only the most recent of2 resultswithin the time period is included. Heparin Anti-Xa 0.60 I Unit/mL LAB COAGULATION METHOD 05/22/2025 11:12 PM EDT [facility] Blood Venous blood specimen / Unknown Venipuncture / Unknown 05/22/2025 10:45 PM EDT 05/22/2025 10:50 PM EDT Narrative [facility] - 05/22/2025 11:12 PM EDT Therapeutic Ranges Heparin Thromboembolic/Standard/Full Dose Protocol: Age 18+ Years 0.30-0.70 IU/mL Age 0-17 Years 0.35-0.70 IU/mL Heparin Cardiac/Low Dose Protocol: 0.30-0.5 IU/mL Low Molecular Weight Heparin: Age 18+ Years 0.50-1.50 IU/mL Age 0-17 Years 0.50-1.00 IU/mL us Pati Shelton MD LAB BLOOD ORDERABLES Final Resu lt Performing Organization Address City/[facility]/ZIP Co de Phone Number [facility] [address] [place] [address], * ECG 12 lead (05/22/2025 3:31 PM EDT) Ventricular Rate ECG 70 BPM GEMUSE Atrial Rate 70 BPM GEMUSE P-R Interval 184 ms GEMUSE QRS Duration 106 ms GEMUSE Q-T Interval 388 ms GEMUSE QTc 419 ms GEMUSE P Wave [place] 56 degrees GEMUSE R [place] -12 degrees GEMUSE T [place] 46 degrees GEMUSE ECG Interpretation Normal sinus rhythm Normal ECG No previous ECGs available Confirmed by MARCELINO GONZALEZ ([id number]) on 05/22/2025 8:40:47 PM GEMUSE 05/22/2025 3:31 PM EDT 05/22/2025 8:40 PM EDT Pati Shelton MD ECG ORDERABLES Final Result GEMUSE * EMG (05/22/2025 2:59 PM EDT) Narrative Bryan Washington MD - 05/22/2025 2:59 PM EDT Bryan Washington MD 05/22/2025 3:07 PM Test Date: 05/22/2025 Patient: Eleanor Antoine : 1960 Physician: Bryan Washington MD Sex: Male Height: cm Ref Phys: Feliciano Kelly MD ID#: [id number] Weight: lbs. House Servant: Patient Complaints: Patient is a 64 year-old [...] approved by the Food and Drug Administration. KS-2 Ab Negative Negative 06/17/2025 3:09 AM EDT [...] approved by the Food and Drug Administration. Anti-U1-PLAN CONSULTANT Ab <20 <20 Units 06/17/2025 3:09 AM [...] the Food and Drug Administration. Fibrillarin (U3 PLAN CONSULTANT) Ab Negative Negative 06/17/2025 3:09 AM EDT [facility] Comment: This test was developed and its performance characteristics determined by [facility]. It has not been cleared or approved by the Food and Drug Administration. Interpretation for Anti-Leonor-1, Cgso-MWS-0ggdyr, Anti-MDA-5, Anti-NXP-2, Anti-PM/Scl-100, Anti-SS-A 52 kD, Anti-U1 PLAN CONSULTANT: Negative: <20 Weak Positive: 20 - 39 Moderate Positive: 40 - 80 Strong Positive: >80 . Test Performed by: [facility] [address] [place] [address] Blood Venous blood specimen / Unknown Venipuncture / Unknown 05/22/2025 7:05 AM EDT 05/22/2025 8:07 AM EDT us Pati Shelton MD LAB BLOOD ORDERABLES Final Resu lt [facility] [address] [place] [address] * Thyroid stimulating hormone with reflex free T4 (05/22/2025 7:05 AM EDT) TSH 2.56 0.45 - 5.33 mcIU/mL LAB CHEMISTRY METHOD 05/22/2025 8:54 AM EDT [facility] Blood Venous blood specimen / Unknown Venipuncture / Unknown 05/22/2025 7:05 AM EDT 05/22/2025 8:07 AM EDT Pati Shelton MD LAB BLOOD ORDERABLES Final Resu lt [facility] [address] [place] [address], [place] [phone] * CT Head wo Contrast (05/21/2025 10:05 [...] by: Maty Florence MD on 05/21/2025 23:20:11 us Jeanette Ann MD IMG CT PROCEDURES Final [...] MD on 05/21/2025 21:50:01 Maranda Murillo MD [facility] MRI PROCEDURES Edited Result - Final * [...] * C-reactive protein (05/21/2025 7:32 PM EDT) Pathologist [facility] C-Reactive Protein <0.29 <=0.50 mg/dL LAB CHEMISTRY METHOD 05/22/2025 2:13 AM EDT [facility] Blood Venous blood specimen / Unknown Venipuncture / Unknown 05/21/2025 7:32 PM EDT 05/21/2025 7:46 PM EDT Jeanette Ann MD LAB BLOOD ORDERABLES Final Res ult [facility] [address] [place] [address], [place] [phone] * (ABNORMAL) Creatine kinase (05/21/2025 7:32 PM EDT) Pathologist [facility] Total CK 270(H) 22 - 269 unit/L LAB CHEMISTRY METHOD 05/21/2025 8:17 PM EDT [facility] Blood Venous blood specimen / Unknown Venipuncture / Unknown 05/21/2025 7:32 PM EDT 05/21/2025 7:46 PM EDT Maranda Murillo MD LAB BLOOD ORDERABLES Final Resul t Performing Organization Address City/[facility]/ZIP Co de Phone Number [facility] [address] [place] [address], [place] [phone] * Vascular US Duplex Lower Extremity Venous [...] by: Maty Florence MD on 05/21/2025 19:44:19 Maranda Murillo MD CV VASCULAR PROCEDURES Edited [...] Signed Date: 05/22/2025 07:15 ET Workstation ID: [id number] Transcribed By: Self Edit Transcribed Date: 05/22/2025 [...] convex right spinal curvature. Procedure Note Rasheed Monet MD - 05/22/2025 EXAMINATION: CHEST CLINICAL INFORMATION: [...] Signed Date: 05/22/2025 07:15 ET Workstation ID: [id number] Transcribed By: Self Edit Transcribed Date: 05/22/2025 07:12 ET Maranda Murillo MD IMG XR PROCEDURES Final Result from Last 3 Months Insurance HEALTH [...] currently active code status orders. Care Teams Intelligence Operations Specialist Relationship Specialty Start Date End Date Quincy Ma MD [address] [place] [address] PCP - General 12/02/23
--- OUTSIDE RECORDS SUMMARY | 2025-07-26 18:33 | XMS_ITS | Encounter Summary ---
Author Organization [facility] Address [address] [place] [address] Care Team Providers Care Grey Tender Name Role Phone Quincy Ma MD Primary Care Provider Encounter Details Date Type Department Care Team (Late st Contact Info) Description 07/15/2025 Lab Requisition [facility] - Main Lab [address] [facility] [place] [address] Sofia Koch MD [address] [place] [address] Fusion of spine, cervical region; Hypo-osmolality and hyponatremia; Vitamin D deficiency, unspecified; Chronic embolism and thrombosis of unspecified vein; Vitamin B12 deficiency anemia, unspecified Social History Tobacco Use Types Packs/Day Years [...] PM EST Office Visit Orthopedic Surgery - [place] [address] [address] Iraj Reese MD [address] [address] Scheduled Procedures Name Priority Associated Diagnoses Date/Ti me ARTHROPLASTY HIP TOTAL Primary osteoarthritis of left hip documented as of this encounter Procedures Procedure Name Priority Date/Time Associated Diagnosis Comments COMPLETE BLOOD COUNT Routine 07/16/2025 5:15 AM EST Fusion of spine, cervical region Hypo-osmolality and hyponatremia Vitamin D deficiency, unspecified Chronic embolism and thrombosis of unspecified vein Vitamin B12 deficiency anemia, unspecified BASIC METABOLIC PANEL Routine 07/16/2025 5:15 AM EST Fusion of spine, cervical region Hypo-osmolality and hyponatremia Vitamin D deficiency, unspecified Chronic embolism and thrombosis of unspecified vein Vitamin B12 deficiency anemia, unspecified documented in this encounter Results * (ABNORMAL) Basic metabolic panel (07/16/2025 5:15 AM EST) Sodium 136 133 - 145 mmol/L LAB CHEMISTRY METHOD 07/16/2025 9:48 AM EST [facility] Potassium 5.1 3.5 - 5.5 mmol/L LAB CHEMISTRY METHOD 07/16/2025 9:[address] [facility] Chloride 101 96 - 110 mmol/L LAB CHEMISTRY METHOD 07/16/2025 9:[address] [facility] CO2 31 21 - 32 mmol/L LAB CHEMISTRY METHOD 07/16/2025 9:[address] [facility] Anion Gap 4 3 - 11 LAB CHEMISTRY METHOD 07/16/2025 9:[address] [facility] Glucose 76 70 - 100 mg/dL LAB CHEMISTRY METHOD 07/16/2025 9:[address] [facility] BUN 14 5 - 25 mg/dL LAB CHEMISTRY METHOD 07/16/2025 9:[address] [facility] Creatinine 0.57(L) 0.70 - 1.30 mg/dL LAB CHEMISTRY METHOD 07/16/2025 9:[address] [facility] eGFR 109 >=60 mL/min/1. 73m2 LAB CHEMISTRY METHOD 07/16/2025 9:[address] [facility] Comment:Calculation based on the Chronic Kidney Disease Epidemiology Collaboration (CKD-EPI) equation refit without adjustment for race. BUN/Creatinine Ratio 24.6 LAB CHEMISTRY METHOD 07/16/2025 9:[address] [facility] Calcium 9.1 8.5 - 10.5 mg/dL LAB CHEMISTRY METHOD 07/16/2025 9:[address] [facility] Blood Venous blood specimen / Unknown Venipuncture / Unknown 07/16/2025 5:15 AM EST 07/16/2025 9:16 AM EST us Sofia Koch MD LAB BLOOD ORDERABLES Final Resul t [facility] [address] [place] [address], * (ABNORMAL) Complete blood count (07/16/2025 5:15 AM EST) [facility] Signature WBC 4.0(L) 4.8 - 10.8 K/mcL LAB HEMETOLOGY METHOD 07/16/2025 9:[address] [facility] RBC 3.50(L) 4.50 - 5.50 M/mcL LAB HEMETOLOGY METHOD 07/16/2025 9:[address] [facility] Hemoglobin 11.9(L) 13.5 - 17.5 g/dL LAB HEMETOLOGY METHOD 07/16/2025 9:[address] [facility] Hematocrit 36.2(L) 42.0 - 54.0 % LAB HEMETOLOGY METHOD 07/16/2025 9:[address] [facility] MCV 102.5(H) 79.0 - 98.0 FL LAB HEMETOLOGY METHOD 07/16/2025 9:[address] [facility] MCH 33.7(H) 27.0 - 32.0 pcg LAB HEMETOLOGY METHOD 07/16/2025 9:[address] [facility] MCHC 32.9 32.0 - 37.0 g/dL LAB HEMETOLOGY METHOD 07/16/2025 9:[address] [facility] RDW 14.4 11.0 - 15.0 % LAB HEMETOLOGY METHOD 07/16/2025 9:[address] [facility] Platelets 247 130 - 400 K/mcL LAB HEMETOLOGY METHOD 07/16/2025 9:[address] [facility] MPV 9.3 7.0 - 11.0 FL LAB HEMETOLOGY METHOD 07/16/2025 9:[address] [facility] NRBC 0.0 <1.0 % LAB HEMETOLOGY METHOD 07/16/2025 9:[address] [facility] NRBC Absolute 0.00 <0.10 K/mcL LAB HEMETOLOGY METHOD 07/16/2025 9:25 AM EST [facility] Blood Venous blood specimen / Unknown Venipuncture / Unknown 07/16/2025 5:15 AM EST 07/16/2025 9:16 AM EST us Sofia Koch MD LAB BLOOD ORDERABLES Final Resul t [facility] [address] [place] [address], documented in this encounter Visit Diagnoses Diagnosis Fusion of spine, cervical region Hypo-osmolality and hyponatremia Vitamin D deficiency, unspecified Chronic embolism and thrombosis of unspecified vein Vitamin B12 deficiency anemia, unspecified documented in this encounter Additional Health Concerns Assessment Noted Time PHQ-9 Depression Total Score: 0 06/07/20 25 4:32 PM EDT documented as of this encounter Care Teams Grey Tender Relationship Specialty Start Date End Date Quincy Ma MD [address] [place] [address] PCP - General 12/02/23 documented as of this encounter
--- OUTSIDE RECORDS SUMMARY | 2025-07-26 18:33 | XMS_ITS | Encounter Summary ---
Author Organization [facility] Address [address] [place] [address] Care Team Providers Care Business Services Vice President Name Role Phone Quincy Ma MD Primary Care Provider [phone] Encounter Details Date Type Department Care Team (Late st Contact Info) Description 07/09/[address] [facility] - Main Lab [address] [facility] [place] [address] Sofia Koch MD [address] [place] [address] Fusion of spine, cervical region; Hypo-osmolality and [...] Upcoming Encounters Date Type Department Care Team ([facility] st Contact Info) Description 09/01/2025 3:30 PM EST Office Visit Orthopedic Surgery - [place] [phone] [address] Iraj Reese MD [address] [address] Scheduled Procedures Name Priority Associated Diagnoses Date/Ti me ARTHROPLASTY HIP TOTAL Primary osteoarthritis of left hip documented as of this encounter Procedures Procedure Name Priority Date/Time Associated Diagnosis Comments VITAMIN B12 AND FOLATE Routine 6:22 AM [...] unspecified documented in this encounter Results * Vitamin D 25 hydroxy (07/09/2025 6:22 AM EST) Vit D, 25-Hydroxy 76.4 30.0 - 80.0 ng/mL LAB CHEMISTRY METHOD 07/09/2025 1:03 PM EST [facility] Blood Venous blood specimen / Unknown Venipuncture / Unknown 07/09/2025 6:22 AM EST 07/09/2025 10:45 AM EST us Sofia Koch MD LAB BLOOD ORDERABLES Final Resul t Performing Organization Address City/[facility]/ZIP Co de Phone Number [facility] [address] [place] [address], [place] [phone] * Vitamin B12 and folate (07/09/2025 6:22 AM EST) Pathologist [facility] Vitamin B-12 733 250 - 900 pcg/mL LAB CHEMISTRY METHOD 07/09/2025 12:14 PM EST [facility] Folate 11.1 2.8 - 17.0 ng/ml LAB CHEMISTRY METHOD 07/09/2025 12:14 PM EST [facility] Blood Venous blood specimen / Unknown Venipuncture / Unknown 07/09/2025 6:22 AM EST 07/09/2025 10:45 AM EST us Sofia Koch MD LAB BLOOD ORDERABLES Final Resul t [facility] [address] [place] [address], [place] [phone] * (ABNORMAL) Comprehensive metabolic panel (07/09/2025 6:22 AM EST) Sodium 134 133 - 145 mmol/L LAB CHEMISTRY METHOD 07/09/2025 12:14 PM [facility] Potassium 5.1 3.5 - 5.5 mmol/L LAB CHEMISTRY METHOD 07/09/2025 12:14 PM [facility] Chloride 99 96 - 110 mmol/L LAB CHEMISTRY METHOD 07/09/2025 12:14 PM [facility] CO2 31 21 - 32 mmol/L LAB CHEMISTRY METHOD 07/09/2025 12:14 PM [facility] Anion Gap 4 3 - 11 LAB CHEMISTRY METHOD 07/09/2025 12:14 PM [facility] Glucose 78 70 - 100 mg/dL LAB CHEMISTRY METHOD 07/09/2025 12:14 PM [facility] BUN 12 5 - 25 mg/dL LAB CHEMISTRY METHOD 07/09/2025 12:14 PM [facility] Creatinine 0.54(L) 0.70 - 1.30 mg/dL LAB CHEMISTRY METHOD 07/09/2025 12:14 PM [facility] eGFR 111 >=60 mL/min/1. 73m2 LAB CHEMISTRY METHOD 07/09/2025 12:14 PM [facility] Comment:Calculation based on the Chronic Kidney Disease Epidemiology Collaboration (CKD-EPI) equation refit without adjustment for race. BUN/Creatinine Ratio 22.2 LAB CHEMISTRY METHOD 07/09/2025 12:14 PM [facility] Calcium 9.1 8.5 - 10.5 mg/dL LAB CHEMISTRY METHOD 07/09/2025 12:14 PM [facility] AST (SGOT) 9(L) 10 - 42 unit/L LAB CHEMISTRY METHOD 07/09/2025 12:14 PM [facility] ALT (SGPT) 23 10 - 60 unit/L LAB CHEMISTRY METHOD 07/09/2025 12:14 PM [facility] Alkaline Phosphatase 93 42 - 121 unit/L LAB CHEMISTRY METHOD 07/09/2025 12:14 PM [facility] Total Protein 5.5(L) 6.0 - 8.0 g/dL LAB CHEMISTRY METHOD 07/09/2025 12:14 PM [facility] Albumin 3.2 3.2 - 5.0 g/dL LAB CHEMISTRY METHOD 07/09/2025 12:14 PM [facility] Total Bilirubin 0.6 0.0 - 1.4 mg/dL LAB CHEMISTRY METHOD 07/09/2025 12:14 PM [facility] Blood Venous blood specimen / Unknown Venipuncture / Unknown 07/09/2025 6:22 AM EST 07/09/2025 10:45 AM EST us Sofia Koch MD LAB BLOOD ORDERABLES Final Resul t [facility] [address] [place] [address], * (ABNORMAL) Complete blood count (07/09/2025 6:22 AM EST) WBC 3.6(L) 4.8 - 10.8 K/mcL LAB HEMETOLOGY METHOD 07/09/2025 10:59 AM [facility] RBC 3.40(L) 4.50 - 5.50 M/mcL LAB HEMETOLOGY METHOD 07/09/2025 10:59 AM [facility] Hemoglobin 11.6(L) 13.5 - 17.5 g/dL LAB HEMETOLOGY METHOD 07/09/2025 10:59 AM [facility] Hematocrit 35.3(L) 42.0 - 54.0 % LAB HEMETOLOGY METHOD 07/09/2025 10:59 AM [facility] MCV 102.6(H) 79.0 - 98.0 FL LAB HEMETOLOGY METHOD 07/09/2025 10:59 AM EST [facility] MCH 33.7(H) 27.0 - 32.0 pcg LAB HEMETOLOGY METHOD 07/09/2025 10:59 AM EST [facility] MCHC 32.9 32.0 - 37.0 g/dL LAB HEMETOLOGY METHOD 07/09/2025 10:59 AM [facility] RDW 14.5 11.0 - 15.0 % LAB HEMETOLOGY METHOD 07/09/2025 10:59 AM [facility] Platelets 179 130 - 400 K/mcL LAB HEMETOLOGY METHOD 07/09/2025 10:59 AM [facility] MPV 9.6 7.0 - 11.0 FL LAB HEMETOLOGY METHOD 07/09/2025 10:59 AM [facility] NRBC 0.0 <1.0 % LAB HEMETOLOGY METHOD 07/09/2025 10:59 AM [facility] NRBC Absolute 0.00 <0.10 K/mcL LAB HEMETOLOGY METHOD 07/09/2025 10:59 AM [facility] Blood Venous blood specimen / Unknown Venipuncture / Unknown 07/09/2025 6:22 AM EST 07/09/2025 10:45 AM EST us Sofia Koch MD LAB BLOOD ORDERABLES Final Resul t [facility] [address] [place] [address], documented in this encounter Visit Diagnoses Diagnosis Fusion of spine, cervical region Hypo-osmolality and hyponatremia Vitamin D deficiency, unspecified Chronic embolism and thrombosis of unspecified vein Vitamin B12 deficiency anemia, unspecified documented in this encounter Additional Health Concerns Assessment Noted Time PHQ-9 Depression Total Score: 0 06/07/20 25 4:32 PM EDT documented as of this encounter Care Teams Business Services Vice President Relationship Specialty Start Date End Date Quincy Ma MD [address] [address] PCP - General 12/02/23 documented as of this encounter
== END 2025-07-26 13:37 | disposition home or self-care (01) ==
LOC: HO.XRAY 13:36
PROVIDERS: PCP Internal Medicine; Visit Provider Nurse Practitioner
DX: Z98.1 Arthrodesis status (principal)
CPT/HCPCS: 72050

== ENCOUNTER → 2025-07-26 14:02 | Outpatient (BNV) | payer MEDICARE, SELFPAY | PROVIDERS: PCP Internal Medicine; Visit Provider Radiology Diagnostic Radiology | DX: M50.322 Other cervical disc degeneration at C5-C6 level (principal); Z98.1 Arthrodesis status | CPT/HCPCS: 72050 ==